=== PATIENT | male | born 1975 | race Caucasian/White ===

== ENCOUNTER 2017-05-25 10:43 | Inpatient (IN) | payer OTHER, SELFPAY ==
[2017-05-25] VITALS (23 sets, daily range): BP systolic 129–165; BP diastolic 78–120; PULSE 98–133; RESP 10–25; TEMP 36.6–37.8; O2SAT 93–99; BMI 34.0; BMI 31.4
--- NOTE | 2017-05-25 10:46 | CT_ITS ---
STUDY: CT BRAIN WITHOUT CONTRAST REASON FOR EXAM: Male, 41 years old. Found on the ground. Right facial droop and weakness. RADIATION DOSAGE (If Supplied By Facility): CTDIvol = ( 44.99 ) mGy, DLP = ( 812.98 ) mGycm TECHNIQUE: Transaxial CT imaging of the brain was performed without administration of intravenous contrast material. Individualized dose optimization techniques were used for this CT. COMPARISON: None. FINDINGS: Normal soft tissue structures. Normal calvarium. Normal size ventricles and extra-axial spaces for the patient's age. Normal white matter tracts of the cerebral hemispheres. Normal basal ganglia and thalami. Normal brainstem. Normal cerebellum. There is no intracranial hemorrhage. There are no findings of an acute ischemic infarction. Acute left maxillary sinusitis. CT/Brain/Head without Contrast IMPRESSION: No acute intracranial pathology. Left maxillary sinusitis. Electronically Signed: Les Holland DO at 11:33 EDT Tel , Service support ,
--- NOTE | 2017-05-25 10:46 | EKG12_ITS ---
Test Reason : Blood Pressure : / mmHG Vent. Rate : 115 BPM Atrial Rate : 115 BPM P-R Int : 140 ms QRS Dur : 082 ms QT Int : 312 ms P-R-T Axes : 056 074 026 degrees QTc Int : 431 ms Sinus tachycardia Otherwise normal ECG Confirmed by BRANDY COLMENARES, SANDRA ([id number]), senior editor ALBA GOODMAN ([id number]) on 05/27/2017 11:32:07 AM Referred By: CAROLINE/DENG Confirmed By:SANDRA NAVA MD
--- NOTE | 2017-05-25 10:46 | CT_ITS ---
STUDY: CT ABDOMEN AND PELVIS WITHOUT CONTRAST REASON FOR EXAM: Male, 41 years old. Found in detail. Right facial droop and weakness. Abdominal pain with contusion RADIATION DOSAGE (If Supplied By Facility): CTDIvol = ( 31.52 ) mGy, DLP = ( 1897.93 ) mGycm TECHNIQUE: Transaxial images were obtained from the dome of the diaphragm to the symphysis pubis without oral contrast, and without intravenous contrast. Sagittal and coronal images were reconstructed. Individualized dose optimization techniques were used for this CT. COMPARISON: None. FINDINGS: Mild bibasilar atelectasis. The visualized portions of the heart are within normal limits. There is hepatomegaly with diffuse hepatic enlargement. Normal gallbladder and extrahepatic biliary system. Normal spleen. Normal pancreas. Normal bilateral adrenal glands. Normal right kidney. Normal left kidney. There is a small hiatal hernia. Normal small intestine. Normal colon. There are surgical clips in the region of the appendix consistent with a prior appendectomy. There is diffuse atherosclerotic calcification of the abdominal aorta, without a demonstrated aneurysm. Normal inferior vena cava. Normal retroperitoneum. Normal urinary bladder. There are prostatic calcifications. Normal abdominal wall. There are diffuse degenerative changes of the visualized lumbar spine. CT/Abdomen/Pelvis without Cont IMPRESSION: No acute findings throughout the abdomen and pelvis. Status post appendectomy. Borderline hepatomegaly. Electronically Signed: Les Holland DO at 11:32 EDT Tel , Service support ,
--- NOTE | 2017-05-25 10:46 | RAD_ITS ---
STUDY: X-RAY CHEST REASON FOR EXAM: Male, 41 years old. Change in mental status. Right-sided weakness. TECHNIQUE: Single AP portable view of the chest. COMPARISON: None. FINDINGS: Lungs are mildly hypoinflated. Lungs are clear. There is no demonstrated pleural abnormality. There is borderline cardiomegaly. Normal mediastinum and misa. Normal visualized pulmonary arteries. Normal visualized aortic arch and descending thoracic aorta. Normal visualized thoracic spine. Normal visualized ribs, clavicles, and shoulders. There is no demonstrated abnormality of the visualized soft tissue structures of the upper abdomen. RAD/Chest 1 View (Portable) IMPRESSION: Hypoinflated lungs. Lungs are clear. Electronically Signed: Les Holland DO at 11:34 EDT Tel , Service support ,
--- NOTE | 2017-05-25 10:50 | NURSING ---
NO OLD EKGS
--- NOTE | 2017-05-25 11:06 | ED.DCSUM_ITS ---
- ER Visit Summary Date of Service: 05/25/17 Chief Complaint: Mental status change History of Present Illness: The patient is a 41 M we have very limited history on him. 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 They heard him yelling in a cleaning person at the hotel found him in the room on the floor. The room was in disarray. Squad was called and brought him in. He had 2 antibiotics Levaquin and Augmentin and also Plavix and blood pressure and cholesterol medication. Patient himself is very limited in gaining history from he denies any medical history. And only gives 1 word answers basically no. Physical Examination: Vital signs are stable afebrile. Pulse ox 98% on room air no signs of hypoxia. He is awake. He is arousable. He follows very limited commands. HEENT exam pupils are 3 mm bilaterally. Not dilated. He has abrasions on his face. Neck nontender no lymphadenopathy. No meningismus. Lungs clear to auscultation bilaterally. Heart regular rhythm no murmur. Chest wall nontender. He has abrasions and redness on his chest right flank abdomen and back. There is also contusions. Abdomen is soft and nontender normal bowel sounds no peritoneal signs. No hernias or masses nondistended. Extremities he is moving the left there is no deformity nontender he is moving both the left arm and leg. The right side he does not move. There are no deformities but there are abrasions and contusions on his extremities. Back he does not have tenderness but he has got redness and contusions primarily over his right flank and right lower back. Neurologically is a decreased mental status but is arousable. He is very limited in his answers and he only follows very limited commands. He does not seem to move his right arm or leg. And is moving his left arm and leg. Test Results: Initial CT of his brain showed no acute abnormalities CT with IV contrast showed diffuse cerebral edema possibly consistent with a encephalitis. No bleed. No mass. Further imaging may be needed. Chest x-ray showed no acute abnormality. EKG sinus tachycardia 115. White count elevated 18.9 with an H&H of 16 and 49 no bands. Electrolytes unremarkable. Gap of 9. Liver enzymes were slightly elevated. INR normal. Lactate normal 1.7. UA is pending. Blood cultures ?2 are pending. Urine tox was positive for opiates and marijuana. Emergency Department Course and Treatment: Multiple repeat exams are unchanged. He remains extremely weak on the right upper and lower extremity. Due to the CAT scan findings. He will be started on both acyclovir for possible herpetic encephalitis. And Claforan. I am unable to do a lumbar puncture at this time due to the fact that he may be on Plavix. I spoke with the pharmacist we do not have Famvir available at this facility. He is also receiving IV Decadron for the cerebral edema. Treatment Plan: Spoke with our hospitalist. Patient be admitted to the ICU. I did try tertiary facilities locally and they do not have ICU beds available they were too full. Disposition: Admission Impression: Mental status change with cerebral edema Acute encephalitis Leukocytosis Reportedly anticoagulated on Plavix Critical care time 35 minutes. This note was generated with Versa dictation software. It may contain incorrect words, spelling, and punctuation that were not noted in review of the chart prior to signing ED Disposition - Plan for ED Patient: Chief Complaint: Alt LOC Referrals: [facility] Doctor,Out of [NON-STAFF] -
[2017-05-25 11:08] LABS: Absolute Lymphocyte Count 1.61 X10^3/ul (0.83-4.51); Absolute Neutrophil Count 15.2 X10^3/uL (2.0-7.7); Basophil# 0.03 X10^3/uL; Basophil% 0.2 % (0-1); Eosinophil# 0.07 X10^3/uL; Eosinophils% 0.4 % (0-5); Hematocrit 49.9 % (40-54); Hemoglobin 16.8 g/dl (13.0-16.5); Lymphocyte # 1.61 X10^3/ul (4.0); Lymphocyte % 8.5 % (19-41); Mean Corp Hgb Conc 33.7 g/gl (32-36); Mean Corpuscular Hgb 31.5 pg (27.0-32.0); Mean Corpuscular Volume 93.6 fL (80-94); Mean Platelet Vol. 9.2 fl (6.2-12.0); Monocyte# 1.83 X10^3/uL; Monocyte% 9.7 % (0-10); Neutrophil # 15.18 X10^3/uL (2.7-7.7); Neutrophil % 80.4 % (47-70); Platelet Count 205 K/mm3 (150-450); RBC Distribution Width SD 47.6 fl (35.1-43.9); Red Blood Count 5.33 M/mm3 (4.6-6.2); White Blood Count 18.9 K/mm3 (4.4-11.0)
[2017-05-25 11:09] LABS: International Normalized Ratio 0.9; Prothrombin Time (Protime)PT. 12.6 SECONDS (11.7-14.9)
[2017-05-25 11:10] LABS: Differential Indicated SCAN CRITERIA MET; POSITIVE COUNT NO; POSITIVE DIFFERENTIAL YES; POSITIVE MORPHOLOGY NO
[2017-05-25 11:21] LABS: AST(SGOT) 61 U/L (15-37); Alanine Aminotransfer ALT/SGPT 73 U/L (16-61); Albumin, Serum 4.1 g/dL (3.2-5.0); Alkaline Phosphatase 123 U/L (45-117); Anion Gap 9 (5-15); BUN 22 mg/dL (7-18); BUN/Creat Ratio 23.2 RATIO (10-20); Bilirubin, Direct 0.13 mg/dL (0.00-0.30); Calcium,Total 8.7 mg/dL (8.5-10.1); Chloride 106 mmol/L (98-107); Creatinine, Serum 0.95 mg/dL (0.70-1.30); EST Glomerular Filtration Rate 92 mL/min (>60); Est Glom Filt Rate - Afr Amer 111 mL/min (>60); Estimated Creatinine Clearance 110.05 ml/min; Globulin 3.2 g/dL (2.2-4.2); Glucose 76 mg/dL (74-106); Potassium 3.8 mmol/L (3.5-5.1); Protein, Total 7.3 g/dL (6.4-8.2); Sodium Level 143 mmol/L (136-145)
[2017-05-25 11:28] LABS: Reactive Lymphocyte RARE
[2017-05-25 11:32] LABS: Lactic Acid 1.7 mmol/L (0.4-2.0)
--- NOTE | 2017-05-25 11:37 | CT_ITS ---
STUDY: CT BRAIN WITH CONTRAST REASON FOR EXAM: Male, 41 years old. Possible meningitis. RADIATION DOSAGE (If Supplied By Facility): CTDIvol = ( 44.99 ) mGy, DLP = ( 846.73 ) mGycm TECHNIQUE: Transaxial CT imaging of the brain was performed post contrast administration. The examination was performed with intravenous administration of 100ml ml of Isovue 300 contrast material. Individualized dose optimization techniques were used for this CT. COMPARISON: None. FINDINGS: Normal soft tissue structures. Normal calvarium. Abnormal edema of the left temporal lobe, the left insular lobe and the left frontal operculum. This accounts for the loss of the vance and white matter interface. There is marked narrowing of the irregular left middle cerebral artery M1 segment. There is also suspicious mild hypodense edema of the right frontal operculum and a small portion of the right temporal tuberculum and the right insular cortex. These are worrisome for nonenhancing herpes simplex encephalitis. Normal ventricles. Normal cisterns. Left retrolenticular edema causing a smaller size appearance of the left lentiform nucleus when compared to the right. Normal remaining basal ganglia. Normal thalami. Normal brainstem. Normal cerebellum. There is no intracranial hemorrhage. Normal visualized paranasal sinuses. CT/Brain/Head WITH Contrast IMPRESSION: Abnormal CT head scan showing nonenhancing abnormal edema in both temporal lobes, left greater than right, the insular lobes, left greater than right, the left frontal operculum, left greater than right, left subinsular white matter and left retrolenticular white matter. 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 RECOMMENDATION: MRI of the brain with and without contrast and MRA of the head. Electronically Signed: Raza Enciso MD at 13:34 EDT , Service support ,
--- NOTE | 2017-05-25 11:39 | ED.RN ---
PATIENT TO ED WITH ALOC. BYSTANDERS FROM HOTEL CALLED IN WITH CONCERNS OF PATIENT YELLING. UPON ARRIVAL, PATIENT CONFUSED AND ANSWERING VERY FEW QUESTIONS. GROANS AND SAYS 1-2 WORDS PHRASES. + FACIAL DROOP TO RIGHT SIDE NOTED. PROFOUND RIGHT SIDE WEAKNESS PRESENT.
[2017-05-25] MEDS: 0.9% Normal Saline 1,000 ML 999 ML IV (11:43)
[2017-05-25 12:09] LABS: Amphetamine Urine VISTA NEGATIVE (<1000 ng/mL); Barbiturate Urine VISTA NEGATIVE (< 200 ng/mL); Benzodiazepine Urine VISTA NEGATIVE (< 200 ng/mL); Cocaine Urine VISTA NEGATIVE (< 300 ng/mL); Ecstacy Urine VISTA NEGATIVE (< 500 ng/mL); Methadone Urine VISTA NEGATIVE (< 300 ng/mL); PCP Urine VISTA NEGATIVE (< 25 ng/mL); THC Urine VISTA POSITIVE (< 50 ng/mL); Vista UDS pH Range 6
[2017-05-25 13:40] LABS: Bedside Glucose 84 mg/dL (70-110)
--- NOTE | 2017-05-25 14:03 | NURSING ---
CALLED [facility].
--- NOTE | 2017-05-25 14:24 | NURSING ---
DR HUMPHREY RETURNED CALL.
--- NOTE | 2017-05-25 14:24 | NURSING ---
, PIETRO MODE [phone]
[2017-05-25 14:26] LABS: Mucous, Urine 0 SEEN /hpf (<or=2+); Squamous Epithelial Cells - UA 0 SEEN /hpf (0-5); White Blood Cells 0 SEEN /hpf (0-5)
[2017-05-25 14:33] LABS: Color, Urine Yellow (Yellow); Glucose, Dipstick Normal (Normal); Ketone-Dipstick Negative (Negative); Leukocyte Esterase-Dipstick Negative /ul (Negative); Nitrite-Dipstick Negative (Negative); Occult Blood-Urine 10 /ul (Negative); Protein-Dipstick 15 mg/dl (Negative); Urine Bilirubin Dipstick Negative (Negative); Urine Clarity Cloudy (Clear); Urine Urobilinogen Normal (Normal)
[2017-05-25 14:39] LABS: Bacteria 2+ /hpf (None Seen); Red Blood Cells-Urine 0-5 SEEN /hpf (0-5)
[2017-05-25 14:40] LABS: Amorphous Sediment 1+
--- NOTE | 2017-05-25 15:06 | PCM.HP.STD ---
Problem List (1) CVA (cerebral vascular accident) Status: Acute Qualifiers: Precerebral and cerebral artery: middle cerebral artery Laterality of affected vessel: left (2) CAD (coronary artery disease) Status: Chronic Qualifiers: Coronary Disease-Associated Artery/Lesion type: [place] artery [place] vs. transplanted heart: [place] heart Associated angina: without angina Qualified Code(s): I25.10 - Atherosclerotic heart disease of [place] coronary artery without angina pectoris History of Present Illness Date of Admission: 05/25/17 Chief Complaint: Confusion The patient is a 41 year old M who was found in his hotel room after screaming out. Patient was found to be disheveled and confused. Patient had numerous scrapes on his body as well. Patient was brought to the hospital for evaluation. In the emergency room patient was confused and unable to write any history. Patient was noted to have right-sided hemiparesis. Patient had a CAT scan that was concerning for herpetic encephalitis. I discussed with Dr. Milian, who reviewed the films and is concern for an acute left MCA stroke and requested a CT angiogram be performed. Discussed with the patient's and stated the patient had a stroke when he was 28 and had a heart attack when he was 38 and has a stent. She denies any history of drug abuse for the patient's. [] Past Medical History Past Medical History (Chronic Problems): Chronic Problems CAD (coronary artery disease) (Chronic) Allergies Unable to Assess Allergy (Verified 05/25/17 11:21) Home Medications: Ambulatory Orders Medication Instructions Recorded Albuterol Sulfate [Ventolin Hfa] 2 puff IH Q4H PRN PRN 05/25/17 Amox/Clavulanate Tablet [Augmentin 1 tablet PO Q8H 05/25/17 Tablet] Clopidogrel Bisulfate [Plavix] 75 mg PO DAILY 05/25/17 Guaifenesin/Codeine Phosphate 10 ml PO Q4H PRN PRN 05/25/17 [Virtussin AC Liquid] Guaifenesin/Dextromethorphan 1 each PO Q12H 05/25/17 [Mucinex Dm ER 600-30 mg Tablet] Metoprolol(XL)Succ [Toprol Xl 25 mg PO DAILY 05/25/17 (Beta Luis Fernando)] Prednisone [Prednisone] See Taper PO DAILY 05/25/17 Simvastatin [Zocor] 20 mg PO QHS 05/25/17 Lives: Spouse/ Significant Other, - - Currently living in the [facility] and 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 Smoking Status: Current every day smoker Tobacco Use: Cigarettes - *Family History Maternal History Items: - - unable to obtain as patient is confused Review of Systems Unable to obtain accurate/complete ROS d/t: Unable to obtain as patient is confused VTE Information - Inpt Only VTE Present on Admission: No VTE Pharm Prophylaxis ordered?: Yes Patient Problems: Active and Suspected Problems CVA (cerebral vascular accident) (Acute) - Physical Exam General: Confused, - - Continue to self only. Disheveled. HEENT: Atraumatic, PERRLA, EOMI, Normocephalic, - - Right facial droop Oral: Moist Mucosa, No Gingival or Mucosal Lesions/ Ulcerations Neck: No Nodes, Thyroid Normal Size and Texture Lungs: Clear to auscultation, Normal air movement, No rhonchi, No wheeze Cardiovascular: Regular rate, Regular Rhythm, Normal S1, Normal S2, No murmurs Abdomen: Bowel Sounds Present, Soft, Non Tender, Non-Distended, No Hepato-splenomegaly Extremities: No edema, No Calf Tenderness Skin: - - Abrasions on both knees with stage I-II pressure ulcers. Regions and erythema over the right side. Musculoskeletal: No Tenderness to Palpation of Joints or Extremities, No Muscle Wasting Lymphatic: No Cervical, Supraclavicular, or Inguinal Adenopathy Neurological: Facial Droop - Right, - - Muscle strength 5 out of 5 on the left upper and left lower extremity and 0 out of 5 of the right upper and lower extremities. Psych/Mental Status: Normal Affect, Appropriate Vital Signs Temp Pulse Resp BP Pulse Ox 36.7 C 109 H 20 H 140/89 H 96 05/25/17 10:52 05/25/17 14:30 05/25/17 14:30 05/25/17 14:30 05/25/17 14:30 Oxygen Flow Rate (L/min) 2 Oxygen Delivery Method Nasal Cannula Weight: 113.6 kg Body Mass Index (BMI) 34.0 Finger Stick Blood Glucose 83 Laboratory Tests Past 24 Hrs 05/25/17 05/25/17 05/25/17 10:49 10:49 10:49 WBC 18.9 H RBC 5.33 Hgb 16.8 H Hct 49.9 MCV 93.6 MCH 31.5 MCHC 33.7 RDW 14.0 RDW Differential 47.6 H Plt Count 205 MPV 9.2 Immature Gran % (Auto) 0.800 Neut % (Auto) 80.4 H Lymph % (Auto) 8.5 L [place] % (Auto) 9.7 Eos % (Auto) 0.4 Baso % (Auto) 0.2 Absolute Neuts (auto) 15.2 H Absolute Lymphs (auto) 1.61 Total Counted Not Reportable Reactive Lymphocytes RARE PT 12.6 INR 0.9 Sodium 143 Potassium 3.8 Chloride 106 Carbon Dioxide 28.0 Anion Gap 9 BUN 22 H Creatinine 0.95 Estim Creat Clear Calc 110.05 Est GFR (MDRD) Af Amer 111 Est GFR (MDRD) Non-Af 92 BUN/Creatinine Ratio 23.2 H Glucose 76 Lactic Acid Calcium 8.7 Total Bilirubin 0.60 Direct Bilirubin 0.13 AST 61 H ALT 73 H Alkaline Phosphatase 123 H Total Protein 7.3 Albumin 4.1 Globulin 3.2 Urine Color Urine Clarity Urine pH Ur Specific [place] Urine Protein Urine Glucose (UA) Urine Ketones Urine Occult Blood Urine Nitrite Urine Bilirubin Urine Urobilinogen Ur Leukocyte Esterase Urine RBC Urine WBC Ur Squamous Epith Cells Amorphous Sediment Urine Bacteria Urine Mucus Urine Opiates Screen Urine Methadone Screen Ur Barbiturates Screen Ur Phencyclidine Scrn Ur Amphetamines Screen U Methamphetamin-MDMA U Benzodiazepines Scrn Urine Cocaine Screen U Cannabinoids Screen Ur Drug Screen Comment Ethyl Alcohol 05/25/17 05/25/17 05/25/17 10:49 10:55 11:45 WBC RBC Hgb Hct MCV MCH MCHC RDW RDW Differential Plt Count MPV Immature Gran % (Auto) Neut % (Auto) Lymph % (Auto) [place] % (Auto) Eos % (Auto) Baso % (Auto) Absolute Neuts (auto) Absolute Lymphs (auto) Total Counted Reactive Lymphocytes PT INR Sodium Potassium Chloride Carbon Dioxide Anion Gap BUN Creatinine Estim Creat Clear Calc Est GFR (MDRD) Af Amer Est GFR (MDRD) Non-Af BUN/Creatinine Ratio Glucose Lactic Acid 1.7 Calcium Total Bilirubin Direct Bilirubin AST ALT Alkaline Phosphatase Total Protein Albumin Globulin Urine Color Yellow Urine Clarity Cloudy Urine pH 6.0 Ur Specific [place] 1.020 Urine Protein 15 H Urine Glucose (UA) Normal Urine Ketones Negative Urine Occult Blood 10 H Urine Nitrite Negative Urine Bilirubin Negative Urine Urobilinogen Normal Ur Leukocyte Esterase Negative Urine RBC 0-5 SEEN Urine WBC 0 SEEN Ur Squamous Epith Cells 0 SEEN Amorphous Sediment 1+ Urine Bacteria 2+ Urine Mucus 0 SEEN Urine Opiates Screen Urine Methadone Screen Ur Barbiturates Screen Ur Phencyclidine Scrn Ur Amphetamines Screen U Methamphetamin-MDMA U Benzodiazepines Scrn Urine Cocaine Screen U Cannabinoids Screen Ur Drug Screen Comment Ethyl Alcohol 14.0 05/25/17 11:45 WBC RBC Hgb Hct MCV MCH MCHC RDW RDW Differential Plt Count MPV Immature Gran % (Auto) Neut % (Auto) Lymph % (Auto) [place] % (Auto) Eos % (Auto) Baso % (Auto) Absolute Neuts (auto) Absolute Lymphs (auto) Total Counted Reactive Lymphocytes PT INR Sodium Potassium Chloride Carbon Dioxide Anion Gap BUN Creatinine Estim Creat Clear Calc Est GFR (MDRD) Af Amer Est GFR (MDRD) Non-Af BUN/Creatinine Ratio Glucose Lactic Acid Calcium Total Bilirubin Direct Bilirubin AST ALT Alkaline Phosphatase Total Protein Albumin Globulin Urine Color Urine Clarity Urine pH Ur Specific [place] Urine Protein Urine Glucose (UA) Urine Ketones Urine Occult Blood Urine Nitrite Urine Bilirubin Urine Urobilinogen Ur Leukocyte Esterase Urine RBC Urine WBC Ur Squamous Epith Cells Amorphous Sediment Urine Bacteria Urine Mucus Urine Opiates Screen POSITIVE H Urine Methadone Screen NEGATIVE Ur Barbiturates Screen NEGATIVE Ur Phencyclidine Scrn NEGATIVE Ur Amphetamines Screen NEGATIVE U Methamphetamin-MDMA NEGATIVE U Benzodiazepines Scrn NEGATIVE Urine Cocaine Screen NEGATIVE U Cannabinoids Screen POSITIVE H Ur Drug Screen Comment Ethyl Alcohol POC Glucose 05/25/17 11:25 POC Glucose 84 EKG was normal sinus rhythm without any acute changes. Clinical Impression(s) from Imaging Studies Abdomen/Pelvis CT 05/25/17 10:46 IMPRESSION: No acute findings throughout the abdomen and pelvis. Status post appendectomy. Borderline hepatomegaly. Electronically Signed: Les Holland DO at 11:32 EDT Tel , Service support , Brain CT 05/25/17 10:46 IMPRESSION: No acute intracranial pathology. Left maxillary sinusitis. Electronically Signed: Les Holland DO at 11:33 EDT Tel , Service support , Chest X-Ray 05/25/17 10:46 IMPRESSION: Hypoinflated lungs. Lungs are clear. Electronically Signed: Les Holland DO at 11:34 EDT Tel , Service support , Brain CT 05/25/17 11:37 IMPRESSION: Abnormal CT head scan showing nonenhancing abnormal edema in both temporal lobes, left greater than right, the insular lobes, left greater than right, the left frontal operculum, left greater than right, left subinsular white matter and left retrolenticular white matter. 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 RECOMMENDATION: MRI of the brain with and without contrast and MRA of the head. Electronically Signed: Raza Enciso MD at 13:34 EDT , Service support , Assessment/Plan Active and Suspected Problems CVA (cerebral vascular accident) (Acute) 1. Acute left MCA stroke This is per Dr. Milian's interpretation. Given patient's history certainly is concerning as well. With the patient's sided hemiparesis She was already on Plavix We will add aspirin Unknown time of onset as patient was noted to be confused today therefore unfortunate on the window for TPA. Concern is for the amount of swelling the patient has seen and I did initially request patient be transferred to tertiary facility for neurosurgery backup at the [facility] have any ICU beds at this time. Will assess the patient and if any change in his status and patient would require being transferred to tertiary facility. The my initial recommendation was for a tertiary facility before neurology had stated that this was a stroke as it is concern for possible encephalitis. The patient will undergo a stroke workup with an MRI of the brain, echocardiogram. Patient will have a physical, occupational and speech therapies. Neurology will be following as well. he will be n.p.o. until he passes a bedside swallow evaluation. 2. Coronary artery disease No ischemic changes on EKG Continue with Plavix and metoprolol. 3. DVT prophylaxis with Lovenox Prognosis guarded Discussed with the patient's over the phone. She will be coming from [place] to see him. Code Visit Inpatient E&M: [id number] Init Hosp L3
--- NOTE | 2017-05-25 15:09 | NURSING ---
ICU 1 CVA ELEN
--- NOTE | 2017-05-25 15:15 | HP.PCM_ITS ---
Problem List (1) CVA (cerebral vascular accident) Status: Acute Qualifiers: Precerebral and cerebral artery: middle cerebral artery Laterality of affected vessel: left (2) CAD (coronary artery disease) Status: Chronic Qualifiers: Coronary Disease-Associated Artery/Lesion type: [place] artery [place] vs. transplanted heart: [place] heart Associated angina: without angina Qualified Code(s): I25.10 - Atherosclerotic heart disease of [place] coronary artery without angina pectoris History of Present Illness Date of Admission: 05/25/17 Chief Complaint: Confusion The patient is a 41 year old M who was found in his hotel room after screaming out. Patient was found to be disheveled and confused. Patient had numerous scrapes on his body as well. Patient was brought to the hospital for evaluation. In the emergency room patient was confused and unable to write any history. Patient was noted to have right-sided hemiparesis. Patient had a CAT scan that was concerning for herpetic encephalitis. I discussed with Dr. Milian, who reviewed the films and is concern for an acute left MCA stroke and requested a CT angiogram be performed. Discussed with the patient's and stated the patient had a stroke when he was 28 and had a heart attack when he was 38 and has a stent. She denies any history of drug abuse for the patient 's. [] Past Medical History Past Medical History (Chronic Problems): Chronic Problems CAD (coronary artery disease) (Chronic) Allergies Unable to Assess Allergy (Verified 05/25/17 11:21) Home Medications: Ambulatory Orders Medication Instructions Recorded Albuterol Sulfate [Ventolin Hfa] 2 puff IH Q4H PRN PRN 05/25/17 Amox/Clavulanate Tablet [Augmentin 1 tablet PO Q8H 05/25/17 Tablet] Clopidogrel Bisulfate [Plavix] 75 mg PO DAILY 05/25/17 Guaifenesin/Codeine Phosphate 10 ml PO Q4H PRN PRN 05/25/17 [Virtussin AC Liquid] Guaifenesin/Dextromethorphan 1 each PO Q12H 05/25/17 [Mucinex Dm ER 600-30 mg Tablet] Metoprolol(XL)Succ [Toprol Xl 25 mg PO DAILY 05/25/17 (Beta Luis Fernando)] Prednisone [Prednisone] See Taper PO DAILY 05/25/17 Simvastatin [Zocor] 20 mg PO QHS 05/25/17 Lives: Spouse/ Significant Other, - - Currently living in the [facility] and is from [place] but 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 Smoking Status: Current every day smoker Tobacco Use: Cigarettes - *Family History Maternal History Items: - - unable to obtain as patient is confused Review of Systems Unable to obtain accurate/complete ROS d/t: Unable to obtain as patient is confused VTE Information - Inpt Only VTE Present on Admission: No VTE Pharm Prophylaxis ordered?: Yes Patient Problems: Active and Suspected Problems CVA (cerebral vascular accident) (Acute) - Physical Exam General: Confused, - - Continue to self only. Disheveled. HEENT: Atraumatic, PERRLA, EOMI, Normocephalic, - - Right facial droop Oral: Moist Mucosa, No Gingival or Mucosal Lesions/ Ulcerations Neck: No Nodes, Thyroid Normal Size and Texture Lungs: Clear to auscultation, Normal air movement, No rhonchi, No wheeze Cardiovascular: Regular rate, Regular Rhythm, Normal S1, Normal S2, No murmurs Abdomen: Bowel Sounds Present, Soft, Non Tender, Non-Distended, No Hepato- splenomegaly Extremities: No edema, No Calf Tenderness Skin: - - Abrasions on both knees with stage I-II pressure ulcers. Regions and erythema over the right side. Musculoskeletal: No Tenderness to Palpation of Joints or Extremities, No Muscle Wasting Lymphatic: No Cervical, Supraclavicular, or Inguinal Adenopathy Neurological: Facial Droop - Right, - - Muscle strength 5 out of 5 on the left upper and left lower extremity and 0 out of 5 of the right upper and lower extremities. Psych/Mental Status: Normal Affect, Appropriate Vital Signs Temp Pulse Resp BP Pulse Ox 36.7 C 109 H 20 H 140/89 H 96 05/25/17 10:52 05/25/17 14:30 05/25/17 14:30 05/25/17 14:30 05/25/17 14:30 Oxygen Flow Rate (L/min) 2 Oxygen Delivery Method Nasal Cannula Weight: 113.6 kg Body Mass Index (BMI) 34.0 Finger Stick Blood Glucose 83 Laboratory Tests Past 24 Hrs 05/25/17 05/25/17 05/25/17 10:49 10:49 10:49 WBC 18.9 H RBC 5.33 Hgb 16.8 H Hct 49.9 MCV 93.6 MCH 31.5 MCHC 33.7 RDW 14.0 RDW Differential 47.6 H Plt Count 205 MPV 9.2 Immature Gran % (Auto) 0.800 Neut % (Auto) 80.4 H Lymph % (Auto) 8.5 L [place] % (Auto) 9.7 Eos % (Auto) 0.4 Baso % (Auto) 0.2 Absolute Neuts (auto) 15.2 H Absolute Lymphs (auto) 1.61 Total Counted Not Reportable Reactive Lymphocytes RARE PT 12.6 INR 0.9 Sodium 143 Potassium 3.8 Chloride 106 Carbon Dioxide 28.0 Anion Gap 9 BUN 22 H Creatinine 0.95 Estim Creat Clear Calc 110.05 Est GFR (MDRD) Af Amer 111 Est GFR (MDRD) Non-Af 92 BUN/Creatinine Ratio 23.2 H Glucose 76 Lactic Acid Calcium 8.7 Total Bilirubin 0.60 Direct Bilirubin 0.13 AST 61 H ALT 73 H Alkaline Phosphatase 123 H Total Protein 7.3 Albumin 4.1 Globulin 3.2 Urine Color Urine Clarity Urine pH Ur Specific [place] Urine Protein Urine Glucose (UA) Urine Ketones Urine Occult Blood Urine Nitrite Urine Bilirubin Urine Urobilinogen Ur Leukocyte Esterase Urine RBC Urine WBC Ur Squamous Epith Cells Amorphous Sediment Urine Bacteria Urine Mucus Urine Opiates Screen Urine Methadone Screen Ur Barbiturates Screen Ur Phencyclidine Scrn Ur Amphetamines Screen U Methamphetamin-MDMA U Benzodiazepines Scrn Urine Cocaine Screen U Cannabinoids Screen Ur Drug Screen Comment Ethyl Alcohol 05/25/17 05/25/17 05/25/17 10:49 10:55 11:45 WBC RBC Hgb Hct MCV MCH MCHC RDW RDW Differential Plt Count MPV Immature Gran % (Auto) Neut % (Auto) Lymph % (Auto) [place] % (Auto) Eos % (Auto) Baso % (Auto) Absolute Neuts (auto) Absolute Lymphs (auto) Total Counted Reactive Lymphocytes PT INR Sodium Potassium Chloride Carbon Dioxide Anion Gap BUN Creatinine Estim Creat Clear Calc Est GFR (MDRD) Af Amer Est GFR (MDRD) Non-Af BUN/Creatinine Ratio Glucose Lactic Acid 1.7 Calcium Total Bilirubin Direct Bilirubin AST ALT Alkaline Phosphatase Total Protein Albumin Globulin Urine Color Yellow Urine Clarity Cloudy Urine pH 6.0 Ur Specific [place] 1.020 Urine Protein 15 H Urine Glucose (UA) Normal Urine Ketones Negative Urine Occult Blood 10 H Urine Nitrite Negative Urine Bilirubin Negative Urine Urobilinogen Normal Ur Leukocyte Esterase Negative Urine RBC 0-5 SEEN Urine WBC 0 SEEN Ur Squamous Epith Cells 0 SEEN Amorphous Sediment 1+ Urine Bacteria 2+ Urine Mucus 0 SEEN Urine Opiates Screen Urine Methadone Screen Ur Barbiturates Screen Ur Phencyclidine Scrn Ur Amphetamines Screen U Methamphetamin-MDMA U Benzodiazepines Scrn Urine Cocaine Screen U Cannabinoids Screen Ur Drug Screen Comment Ethyl Alcohol 14.0 05/25/17 11:45 WBC RBC Hgb Hct MCV MCH MCHC RDW RDW Differential Plt Count MPV Immature Gran % (Auto) Neut % (Auto) Lymph % (Auto) [place] % (Auto) Eos % (Auto) Baso % (Auto) Absolute Neuts (auto) Absolute Lymphs (auto) Total Counted Reactive Lymphocytes PT INR Sodium Potassium Chloride Carbon Dioxide Anion Gap BUN Creatinine Estim Creat Clear Calc Est GFR (MDRD) Af Amer Est GFR (MDRD) Non-Af BUN/Creatinine Ratio Glucose Lactic Acid Calcium Total Bilirubin Direct Bilirubin AST ALT Alkaline Phosphatase Total Protein Albumin Globulin Urine Color Urine Clarity Urine pH Ur Specific [place] Urine Protein Urine Glucose (UA) Urine Ketones Urine Occult Blood Urine Nitrite Urine Bilirubin Urine Urobilinogen Ur Leukocyte Esterase Urine RBC Urine WBC Ur Squamous Epith Cells Amorphous Sediment Urine Bacteria Urine Mucus Urine Opiates Screen POSITIVE H Urine Methadone Screen NEGATIVE Ur Barbiturates Screen NEGATIVE Ur Phencyclidine Scrn NEGATIVE Ur Amphetamines Screen NEGATIVE U Methamphetamin-MDMA NEGATIVE U Benzodiazepines Scrn NEGATIVE Urine Cocaine Screen NEGATIVE U Cannabinoids Screen POSITIVE H Ur Drug Screen Comment Ethyl Alcohol POC Glucose 05/25/17 11:25 POC Glucose 84 EKG was normal sinus rhythm without any acute changes. Clinical Impression(s) from Imaging Studies Abdomen/Pelvis CT 05/25/17 10:46 IMPRESSION: No acute findings throughout the abdomen and pelvis. Status post appendectomy. Borderline hepatomegaly. Electronically Signed: Les Holland DO at 11:32 EDT Tel , Service support , Brain CT 05/25/17 10:46 IMPRESSION: No acute intracranial pathology. Left maxillary sinusitis. Electronically Signed: Les Holland DO at 11:33 EDT Tel , Service support , Chest X-Ray 05/25/17 10:46 IMPRESSION: Hypoinflated lungs. Lungs are clear. Electronically Signed: Les Holland DO at 11:34 EDT Tel , Service support , Brain CT 05/25/17 11:37 IMPRESSION: Abnormal CT head scan showing nonenhancing abnormal edema in both temporal lobes, left greater than right, the insular lobes, left greater than right, the left frontal operculum, left greater than right, left subinsular white matter and left retrolenticular white matter. 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 RECOMMENDATION: MRI of the brain with and without contrast and MRA of the head. Electronically Signed: Raza Enciso MD at 13:34 EDT , Service support , Assessment/Plan Active and Suspected Problems CVA (cerebral vascular accident) (Acute) 1. Acute left MCA stroke * This is per Dr. Milian's interpretation. Given patient's history certainly is concerning as well. With the patient's sided hemiparesis * She was already on Plavix * We will add aspirin * Unknown time of onset as patient was noted to be confused today therefore unfortunate on the window for TPA. * Concern is for the amount of swelling the patient has seen and I did initially request patient be transferred to tertiary facility for neurosurgery backup at the [facility] no hospitals have any ICU beds at this time. Will assess the patient and if any change in his status and patient would require being transferred to tertiary facility. The my initial recommendation was for a tertiary facility before neurology had stated that this was a stroke as it is concern for possible encephalitis. * The patient will undergo a stroke workup with an MRI of the brain, echocardiogram. Patient will have a physical, occupational and speech therapies. Neurology will be following as well. * he will be n.p.o. until he passes a bedside swallow evaluation. 2. Coronary artery disease * No ischemic changes on EKG * Continue with Plavix and metoprolol. 3. DVT prophylaxis with Lovenox Prognosis guarded Discussed with the patient's over the phone. She will be coming from [place] to see him. Code Visit Inpatient E&M: 24416 Init Hosp L3
--- NOTE | 2017-05-25 15:34 | MRI_ITS ---
STUDY: MRI BRAIN WITH AND WITHOUT CONTRAST REASON FOR EXAM: Male, 41 years old. CVA TECHNIQUE: Standardized multiplanar fat and water weighted pulse sequences were obtained. 10 ml of Gadavist contrast material was administered intravenously for the contrast portion of the examination. COMPARISON: None. FINDINGS: Normal size of the ventricles and extra-axial spaces for the patient's age. There is diffuse gliosis in the left temporal, frontal and anterior parietal lobes demonstrating restricted diffusion consistent with acute ischemic changes in distribution of left middle cerebral artery. There is also restricted diffusion seen within the left basal ganglia. There is mild extrinsic impression upon left lateral ventricle without midline shift . Normal thalami. There is no extra-axial fluid accumulation. There is no appreciable flow seen within the left internal carotid at the level of the petrous, cavernous and supraclinoid portions.. There also appears to be diminished flow within the left middle cerebral artery . There is enhancing collateral circulation noted within the left cerebral hemisphere following contrast administration Normal sella turcica, pituitary gland, infundibular stalk, optic chiasm and hypothalamus. Normal tectal plate and pineal gland. Normal midbrain, nemesio and medulla. Chronic ischemic changes in the right cerebellar hemisphere. Normal basal cisterns. Normal bilateral temporal bones. Normal bilateral internal auditory canals. No demonstrated orbital abnormality, within the constraints of a routine brain study. There is moderate mucosal thickening in the left maxillary sinus. Normal calvarium and skull base. Normal visualized soft tissue structures. Normal visualized upper cervical spine. MRI/Brain W/WO Contrast IMPRESSION: Acute ischemic infarction of the left frontal temporal and parietal lobes secondary to left internal carotid occlusion. MRA recommended for further evaluation. Electronically Signed: Juan Jose Guy MD at 22:20 EDT , Service support ,
--- NOTE | 2017-05-25 15:34 | ECHOD_ITS ---
Reason For Study: TIA/STROKE Procedure This was a 2D Doppler, Color Flow transthoracic echocardiogram. Exam performed portable in ICU/CCU. Left Ventricle Normal size and thickness. The estimated ejection fraction is 65 %. Stage 1 diastolic dysfunction. No regional wall motion abnormalities noted. Right Ventricle Normal size and thickness. Normal systolic function. Atria Normal left atrium. Normal right atrium. Normal atrial septum. Bubble contrast study negative for right to left interatrial shunt. Mitral Valve The mitral valve is structurally normal. No prolapse or stenosis seen. Tricuspid Valve Normal tricuspid valve. Unable to estimate RV systolic pressure/pulmonary artery pressure due to technically difficult study. Aortic Valve Normal aortic valve. Trisinus/trileaflet aortic valve. Pulmonic Valve Normal pulmonic valve. Trivial pulmonic valve insufficiency. Great Vessels Normal aortic root. Normal arch. Normal inferior vena cava. Inferior vena cava collapse with sniff. Pericardium/Pleural No pericardial effusion. Medication Performed a rapid injection of agitated mix of 9 cc saline and 1cc air to assess for atrial septal defect. MMode/2D Measurements & Calculations LVIDd: 4.4 cm IVSd: 1.3 cm LA dimension: 3.7 cm LVIDs: 3.3 cm LVPWd: 1.2 cm RVDd: 3.3 cm FS: 25.4 % LAV(MOD-bp): 47.1 ml LA A4 area: 12.1 cm2 RA A4 area: 11.4 cm2 LAV(MOD-bp) Indexed: 20.1 ml/m2 LAV(MOD-sp2): 65.1 ml LAV(MOD-sp4): 29.0 ml Doppler Measurements & Calculations MV E max ash: 83.5 cm/sec Ao V2 max: 137.0 cm/sec LV V1 max: 113.5 cm/sec MV A max ash: 93.7 cm/sec Ao max P.5 mmHg LV V1 max P.2 mmHg MV E/A: 0.89 Interpretation Summary The estimated ejection fraction is 65 %. Stage 1 diastolic dysfunction. Unable to estimate RV systolic pressure/pulmonary artery pressure due to technically difficult study. Bubble contrast study negative for right to left interatrial shunt. There is no comparison study available. Ordering Physician: Zeferino Barrow Performed By: Luly Barbosa, [place], RVT
[2017-05-25] MEDS: Ceftriaxone 2 GM in 0.9% NS 50 ML Minibag x1 IV (16:24)
[2017-05-25 16:38] LABS: Prothrombin Time (Protime)PT. 12.9 SECONDS (11.7-14.9)
[2017-05-25 16:49] LABS: Thyroid Stim Hormone (TSH) 0.28 uIU/mL (0.358-3.74)
[2017-05-25] MEDS: Aspirin 300 MG Suppository RECTAL (18:20)
[2017-05-25] MEDS: 0.9% NaCl Peripheral Flush Adult/Peds IV (18:25)
--- NOTE | 2017-05-25 19:11 | MRI_ITS ---
STUDY: MRA NECK WITH AND WITHOUT CONTRAST REASON FOR EXAM: Male, 41 years old. CVA TECHNIQUE: 3-D quvm-[id number]-bwzagg (TOF) imaging was performed in an 1.5 T MRI scanner. 10 ml of Gadavist was administered for the contrast enhanced images. COMPARISON: None. FINDINGS: RIGHT CAROTID ARTERIES: Normal right common carotid artery (CCA). Normal right common carotid bulb. Normal origin of the right internal carotid (ICA) artery without a hemodynamically significant stenosis. Normal visualized cervical portion of the right internal carotid artery. Normal origin of the right external carotid artery (ECA). LEFT CAROTID ARTERIES: Normal left common carotid artery (CCA). Normal left common carotid bulb. Normal origin of the left internal carotid (ICA) artery without a hemodynamically significant stenosis. Occluded proximal cervical portion of the left internal carotid artery. Normal origin of the left external carotid artery (ECA). VERTEBRAL ARTERIES: Normal antegrade flow within the bilateral vertebral artery without a hemodynamically significant stenosis. MRI/MRA Neck WITH and W/O Contrast IMPRESSION: Occluded left internal carotid just distal to the bifurcation. Electronically Signed: Juan Jose Guy MD at 22:24 EDT , Service support ,
--- NOTE | 2017-05-25 19:11 | MRI_ITS ---
STUDY: MRA OF THE HEAD WITHOUT CONTRAST REASON FOR EXAM: Male, 41 years old. Stroke TECHNIQUE: 3-D ptdz-co-felecu (TOF) imaging was performed with MIPs. The study was performed unenhanced. COMPARISON: None. FINDINGS: Normal right petrous carotid arteries. Normal right cavernous carotid artery with a normal supraclinoid bifurcation. Nonvisualized left cavernous carotid artery with a normal supraclinoid bifurcation. Normal right A1 segments of the anterior cerebral artery. Normal left A1 segments of the anterior cerebral artery. Normal intact anterior communicating artery (ACOM). Normal bilateral A2 segments of the anterior cerebral arteries. Normal right M1 and M2 segments of the middle cerebral arteries, with a normal M1 bifurcation. Nonvisualized left M1 and M2 segments of the middle cerebral arteries, with a normal M1 bifurcation. Posterior communicating arteries are not visualized consistent with normal developmental variant Normal bilateral vertebral arteries. Normal basilar artery with a normal basilar bifurcation. The visualized bilateral superior cerebellar (SCA) arteries are normal. Normal bilateral P1, P2 and visualized P3 segments of the posterior cerebral arteries. There is no demonstrated aneurysm of the [place]. There is no major vessel occlusion or hemodynamically significant stenosis. There is no demonstrated abnormality of the visualized brain. MRI/MRA Head ONLY without Contrast IMPRESSION: Findings consistent with occlusion of the petrous portion of the left internal carotid extending to the level of the middle cerebral artery. Electronically Signed: Juan Jose Guy MD at 22:23 EDT , Service support ,
[2017-05-25] MEDS: Haloperidol Lactate 5 MG/ML Vial 2.5 MG IV ×2 (19:17→20:10)
--- NOTE | 2017-05-25 19:59 | NURSING ---
Pt currently undergoing MRI. Pt given Haldol 2.5mg IV at 1917 to help with mild agitation.
[2017-05-25 22:01] LABS: Bedside Glucose 123 mg/dL (70-110)
[2017-05-25] MEDS: 0.9% Normal Saline 1,000 ML 125 ML IV (22:04)
--- NOTE | 2017-05-25 22:33 | NURSING ---
Spoke with Dr. Guy from radiology with critical MRI/MRA findings. Dr. Jean hospitalist database consultant paged.
[2017-05-25 22:35] LABS: CPK Total, Creatine Kinase 1657 U/L (39-308)
--- NOTE | 2017-05-25 22:38 | PCM.HOSP.N ---
Hospitalist Note Reviewed all resulted MRI/MRA images with Dr. Milian. He noted no reason to transfer patient at this time. Will continue to monitor, if any concerns for edema than would opt to transfer for neurosurgery evaluation if felt appropriate at that time. Currently NPO so only taking NH ASA, prior at home with history of prior CVA, VT was on asa, plavix both which was discussed w/ Dr. Milian. Given extent of CVA, Dr. Milian also confirmed amenable with chemoprophylaxis with lovenox.
[2017-05-25] MEDS: Enoxaparin 40 MG/0.4 ML Syringe SC (23:16)
[2017-05-26] VITALS (26 sets, daily range): BP systolic 115–154; BP diastolic 61–128; PULSE 69–111; RESP 9–29; TEMP 36.1–37; O2SAT 94–100; BMI 31.4
--- NOTE | 2017-05-26 02:05 | NURSING ---
This RN asked family if they wanted someone from the clergy to visit patient. They called their own spiritual leader. Father Patrick here at the bedside with patient and family.
[2017-05-26 05:00] LABS: Cholesterol 229 mg/dL (200); Free T3 2.8 pg/mL (2.18-3.98); High Density Lipoprotein 48 mg/dL; T4 Free Direct 1.39 ng/dL (0.76-1.46); Triglycerides 322 mg/dL; Very Low Density Lipoprotein 64 mg/dL (5-40)
--- NOTE | 2017-05-26 06:57 | PCM.CON.CC ---
Reason for Consult Date of Consultation: 05/26/17 Reason for Consultation: Altered mental status/stroke History of Present Illness: The patient is a 41-year-old male, with a history as outlined below who presented to the emergency department on May 25 with altered mentation. 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 He was staying at a local hotel and was reportedly heard yelling nonsensically by cleaning personnel. Upon going into his room, the patient was found on the floor in an altered and disheveled state. Per the patient's , he has a history of a prior CVA and coronary artery disease for which he is status post PTCA. On presentation to the emergency department, the patient was found to be afebrile, tachycardic and hypertensive. Laboratory evaluation revealed elevated white blood cell count to 19,000. Coagulation profile is within normal limits. Chemistry profile was largely unremarkable. AST and ALT were mildly elevated. Urinalysis was negative. Toxicology screen was positive for both opiates and cannabinoids. CT head revealed nonenhancing edema in both temporal lobes worrisome for HSV encephalitis versus neoplasm versus ischemic infarcts. A follow-up MRI brain was subsequently obtained and revealed an acute ischemic infarction of the left frontal temporal and parietal lobes secondary to left internal carotid occlusion. Neck MRA confirmed complete occlusion of the left internal carotid. The patient was subsequently transferred to the medical intensive care unit for ongoing management. Past Medical History Past Medical History (Chronic Problems): Chronic Problems CAD (coronary artery disease) (Chronic) Allergies No Known Allergies Allergy (Verified 05/25/17 15:07) Home Medications: Ambulatory Orders Medication Instructions Recorded Albuterol Sulfate [Ventolin Hfa] 2 puff IH Q4H PRN PRN 05/25/17 Amox/Clavulanate Tablet [Augmentin 1 tablet PO Q8H 05/25/17 Tablet] Clopidogrel Bisulfate [Plavix] 75 mg PO DAILY 05/25/17 Guaifenesin/Codeine Phosphate 10 ml PO Q4H PRN PRN 05/25/17 [Virtussin AC Liquid] Guaifenesin/Dextromethorphan 1 each PO Q12H 05/25/17 [Mucinex Dm ER 600-30 mg Tablet] Metoprolol(XL)Succ [Toprol Xl 25 mg PO DAILY 05/25/17 (Beta Luis Fernando)] Prednisone [Prednisone] See Taper PO DAILY 05/25/17 Simvastatin [Zocor] 20 mg PO QHS 05/25/17 Lives: Spouse/ Significant Other, - - Currently living in the [facility] and is from [place] but 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 Smoking Status: Current every day smoker Tobacco Use: Cigarettes - *Family History Maternal History Items: - - unable to obtain as patient is confused Review of Systems Unable to obtain accurate/complete ROS d/t: Due to altered mental state. Patient Problems: Active and Suspected Problems CVA (cerebral vascular accident) (Acute) Objective: The patient's most recent lab work, culture data and imaging studies have all been personally reviewed. Blood cultures are pending. Surface echocardiogram is pending. - Physical Exam General: Alert, Cooperative, Confused HEENT: Atraumatic, PERRLA, Normocephalic Oral: No Gingival or Mucosal Lesions/ Ulcerations Neck: Supple, No Nodes, Trachea Midline Lungs: No rhonchi, No wheeze, No rales, Diminished Cardiovascular: Regular rate, Regular Rhythm, Normal S1, Normal S2, No murmurs Abdomen: Bowel Sounds Present, Soft, Non Tender, Obese Extremities: No clubbing, No cyanosis, No edema Skin: - - Scattered abrasions Musculoskeletal: No Muscle Wasting Lymphatic: No Cervical, Supraclavicular, or Inguinal Adenopathy Neurological: - - Flaccid right upper extremity. Some movement noted in right lower extremity. Right-sided neglect. Vital Signs Temp Pulse Resp BP Pulse Ox 97.5 F L 84 21 H 132/84 H 96 05/26/17 06:00 05/26/17 06:00 05/26/17 06:00 05/26/17 06:00 05/26/17 06:00 Oxygen Flow Rate (L/min) 2 Oxygen Delivery Method Room Air Weight: 231 lb 11.293 oz Body Mass Index (BMI) 31.4 Intake and Output for Last 24 Hours 05/24/17 05/25/17 05/26/17 23:59 23:59 23:59 Intake Total 370 / 370 997 / 997 Output Total 325 / 325 900 / 900 Balance 45 / 45 97 / 97 Laboratory Tests Past 24 Hrs 05/25/17 05/25/17 05/25/17 16:14 16:14 18:30 PT 12.9 INR 1.0 Total Creatine Kinase Troponin I < 0.02 < 0.02 Triglycerides Cholesterol LDL Cholesterol VLDL Cholesterol HDL Cholesterol TSH 0.28 L Free T4 Free T3 pg/dL 05/25/17 05/25/17 05/26/17 21:50 21:50 04:00 PT INR Total Creatine Kinase 1657 H Troponin I < 0.02 < 0.02 Triglycerides Cholesterol LDL Cholesterol VLDL Cholesterol HDL Cholesterol TSH Free T4 Free T3 pg/dL 05/26/17 04:00 PT INR Total Creatine Kinase Troponin I Triglycerides 322 H Cholesterol 229 H LDL Cholesterol 117 VLDL Cholesterol 64 H HDL Cholesterol 48 TSH Free T4 1.39 Free T3 pg/dL 2.8 POC Glucose 05/25/17 21:59 POC Glucose 123 H Clinical Impression(s) from Imaging Studies Abdomen/Pelvis CT 05/25/17 10:46 IMPRESSION: No acute findings throughout the abdomen and pelvis. Status post appendectomy. Borderline hepatomegaly. Electronically Signed: Les Holland DO at 11:32 EDT Tel , Service support , Brain CT 05/25/17 10:46 IMPRESSION: No acute intracranial pathology. Left maxillary sinusitis. Electronically Signed: Les Holland DO at 11:33 EDT Tel , Service support , Chest X-Ray 05/25/17 10:46 IMPRESSION: Hypoinflated lungs. Lungs are clear. Electronically Signed: Les Holland DO at 11:34 EDT Tel , Service support , Brain CT 05/25/17 11:37 IMPRESSION: Abnormal CT head scan showing nonenhancing abnormal edema in both temporal lobes, left greater than right, the insular lobes, left greater than right, the left frontal operculum, left greater than right, left subinsular white matter and left retrolenticular white matter. 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 RECOMMENDATION: MRI of the brain with and without contrast and MRA of the head. Electronically Signed: Raza Enciso MD at 13:34 EDT , Service support , Brain MRI 05/25/17 15:34 IMPRESSION: Acute ischemic infarction of the left frontal temporal and parietal lobes secondary to left internal carotid occlusion. MRA recommended for further evaluation. Electronically Signed: Juan Jose Gyu MD at 22:20 EDT , Service support , Head MRA 05/25/17 19:11 IMPRESSION: Findings consistent with occlusion of the petrous portion of the left internal carotid extending to the level of the middle cerebral artery. Electronically Signed: Juan Jose Guy MD at 22:23 EDT , Service support , Neck MRA 05/25/17 19:11 IMPRESSION: Occluded left internal carotid just distal to the bifurcation. Electronically Signed: Juan Jose Guy MD at 22:24 EDT , Service support , Assessment/Plan Active and Suspected Problems CVA (cerebral vascular accident) (Acute) RECOMMENDATIONS: 1. Continue management per stroke protocol 2. Continue supplemental IV fluids for now 3. Neurology consultation is pending 4. Allow for permissive hypertension 5. Obtain PT/OT/speech evaluations IMPRESSIONS: 1. Acute ischemic infarction Continue stroke management per protocol. Allow for permissive hypertension for now. Aspirin and Plavix can be started. PT/OT/speech evaluations pending. Continue supplemental IV fluids until speech evaluation is completed. Consider inpatient rehabilitation. The patient will need to follow-up with vascular surgery on an outpatient basis to address his occluded left ICA. 2. Personal history of coronary artery disease status post PTCA Continue aspirin and Plavix. The patient will require initiation of a statin. 3. Hypertension/hyperlipidemia/tobacco dependence Complicates care, management, recovery and prognosis. Holding antihypertensives for now. Statin will need to be initiated once the patient is able to tolerate p.o. Tobacco cessation is recommended. This note was generated with [employer] software. It may contain incorrect words, spelling, and punctuation that were not noted in checking the note before signing. Code Visit Inpatient E&M: 54300 Init Hosp L3
[2017-05-26] MEDS: 0.9% Normal Saline 1,000 ML 125 ML IV ×2 (08:32→17:13)
--- NOTE | 2017-05-26 08:47 | PCM.CONS.GEN ---
Reason for Consult Date of Consultation: 05/26/17 Reason for Consultation: CVA History of Present Illness: The patient is a 41 year old M who was found down in his hotel room, was brought to the emergency department and was found to have a large left MCA distribution stroke. He apparently has had a stroke in the past and has been on Plavix and blood pressure medicines but history is unclear. 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 He is unable to give his history otherwise. Further testing has been performed including MRI and MRA which has confirmed his left MCA distribution stroke as well as a left carotid occlusion extending into his MCA territory. per admit h&p:The patient is a 41 year old M who was found in his hotel room after screaming out. Patient was found to be disheveled and confused. Patient had numerous scrapes on his body as well. Patient was brought to the hospital for evaluation. In the emergency room patient was confused and unable to write any history. Patient was noted to have right-sided hemiparesis. Patient had a CAT scan that was concerning for herpetic encephalitis. I discussed with Dr. Milian, who reviewed the films and is concern for an acute left MCA stroke and requested a CT angiogram be performed. Discussed with the patient's and stated the patient had a stroke when he was 28 and had a heart attack when he was 38 and has a stent. She denies any history of drug abuse for the patient's. Past Medical History Past Medical History (Chronic Problems): Chronic Problems CAD (coronary artery disease) (Chronic) Allergies No Known Allergies Allergy (Verified 05/25/17 15:07) Home Medications: Ambulatory Orders Medication Instructions Recorded Albuterol Sulfate [Ventolin Hfa] 2 puff IH Q4H PRN PRN 05/25/17 Amox/Clavulanate Tablet [Augmentin 1 tablet PO Q8H 05/25/17 Tablet] Clopidogrel Bisulfate [Plavix] 75 mg PO DAILY 05/25/17 Guaifenesin/Codeine Phosphate 10 ml PO Q4H PRN PRN 05/25/17 [Virtussin AC Liquid] Guaifenesin/Dextromethorphan 1 each PO Q12H 05/25/17 [Mucinex Dm ER 600-30 mg Tablet] Metoprolol(XL)Succ [Toprol Xl 25 mg PO DAILY 05/25/17 (Beta Luis Fernando)] Prednisone [Prednisone] See Taper PO DAILY 05/25/17 Simvastatin [Zocor] 20 mg PO QHS 05/25/17 Lives: Spouse/ Significant Other, - - Currently living in the [facility] and is from [place] 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 Smoking Status: Current every day smoker Tobacco Use: Cigarettes - *Family History Maternal History Items: - - unable to obtain as patient is confused Review of Systems Unable to obtain accurate/complete ROS d/t: confused Patient Problems: Active and Suspected Problems CVA (cerebral vascular accident) (Acute) Objective: On examination he is awake and follows simple commands lying he knows his age and the month There is a right central 7 Right hemianopsia Right arm is flaccid. He is not able to hold his right leg up off of the bed but there is some effort. Left arm and left leg are normal He has right-sided neglect Some receptive aphasia line NIH stroke scale score is 14 - Physical Exam Vital Signs Temp Pulse Resp BP Pulse Ox 36.8 C 111 H 29 H 119/66 94 05/26/17 07:00 05/26/17 07:14 05/26/17 07:00 05/26/17 07:00 05/26/17 07:00 Oxygen Flow Rate (L/min) 2 Oxygen Delivery Method Room Air Weight: 105.1 kg Body Mass Index (BMI) 31.4 Intake and Output for Last 24 Hours 05/24/17 05/25/17 05/26/17 23:59 23:59 23:59 Intake Total 370 / 370 997 / 997 Output Total 325 / 325 900 / 900 Balance 45 / 45 97 / 97 Laboratory Tests Past 24 Hrs 05/25/17 05/25/17 05/25/17 16:14 16:14 18:30 PT 12.9 INR 1.0 Total Creatine Kinase Troponin I < 0.02 < 0.02 Triglycerides Cholesterol LDL Cholesterol VLDL Cholesterol HDL Cholesterol TSH 0.28 L Free T4 Free T3 pg/dL 05/25/17 05/25/17 05/26/17 21:50 21:50 04:00 PT INR Total Creatine Kinase 1657 H Troponin I < 0.02 < 0.02 Triglycerides Cholesterol LDL Cholesterol VLDL Cholesterol HDL Cholesterol TSH Free T4 Free T3 pg/dL 05/26/17 04:00 PT INR Total Creatine Kinase Troponin I Triglycerides 322 H Cholesterol 229 H LDL Cholesterol 117 VLDL Cholesterol 64 H HDL Cholesterol 48 TSH Free T4 1.39 Free T3 pg/dL 2.8 POC Glucose 05/25/17 21:59 POC Glucose 123 H Current Home Med List Medication Instructions Recorded Confirmed Type Albuterol Sulfate [Ventolin Hfa] 2 puff IH Q4H PRN PRN 05/25/17 05/25/17 History Amox/Clavulanate Tablet [Augmentin 1 tablet PO Q8H 05/25/17 05/25/17 History Tablet] Clopidogrel Bisulfate [Plavix] 75 mg PO DAILY 05/25/17 05/25/17 History Guaifenesin/Codeine Phosphate 10 ml PO Q4H PRN PRN 05/25/17 05/25/17 History [Virtussin AC Liquid] Guaifenesin/Dextromethorphan 1 each PO Q12H 05/25/17 05/25/17 History [Mucinex Dm ER 600-30 mg Tablet] Metoprolol(XL)Succ [Toprol Xl 25 mg PO DAILY 05/25/17 05/25/17 History (Beta Luis Fernando)] Prednisone [Prednisone] See Taper PO DAILY 05/25/17 05/25/17 History Simvastatin [Zocor] 20 mg PO QHS 05/25/17 05/25/17 History Current Medications Generic Name Dose Route Start Last Admin Trade Name Freq PRN Reason Stop Dose Admin Acetaminophen 650 mg 05/25/17 15:34 Tylenol PO Q4H PRN PRN Headache/Temp>99F Acetaminophen 650 mg 05/25/17 15:34 Tylenol RECTAL Q4H PRN PRN Headache/Temp>99F Acetaminophen 650 mg 05/25/17 15:34 Tylenol Liquid NG Q4H PRN PRN Headache/Temp>99F Aspirin 300 mg 05/26/17 10:00 Aspirin RECTAL DAILY YESENIA Clopidogrel Bisulfate 75 mg 05/26/17 10:00 Plavix PO DAILY YESENIA Enoxaparin Sodium 40 mg 05/25/17 23:15 05/25/17 23:16 Lovenox SC 40 mg DAILY@1000 YESENIA Administration Sodium Chloride 1,000 mls @ 125 mls/hr 05/25/17 15:34 05/26/17 08:32 IV 125 mls/hr .Q8H YESENIA Administration Sodium Chloride 250 mls @ 15 mls/hr 05/25/17 16:43 IV .[id number] PRN SALINE FLUSH Sodium Chloride 250 mls @ 15 mls/hr 05/25/17 16:44 IV .[id number] PRN SALINE FLUSH Labetalol HCl 10 mg 05/25/17 15:34 Trandate IV 05/26/17 15:35 Q10M PRN MAINTAIN SBP GOALS Magnesium Hydroxide 30 ml 05/25/17 15:34 Milk Of Magnesia PO DAILY PRN PRN Constipation Sodium Chloride 5 - 30 ml 05/25/17 16:43 05/25/17 18:25 IV 30 ml UD PRN Administration SALINE FLUSH Assessment/Plan Active and Suspected Problems CVA (cerebral vascular accident) (Acute) Acute 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 Debility includes right hemiparesis and neglect as well as hemianopsia and receptive aphasia. Plan: Initiate therapies Permissive hypertension [place] ASA for now, restart Plavix when able Statin therapy Consider rehab Repeat scans as needed
--- NOTE | 2017-05-26 08:53 | CON.PCM_ITS ---
Reason for Consult Date of Consultation: 05/26/17 Reason for Consultation: CVA History of Present Illness: The patient is a 41 year old M who was found down in his hotel room, was brought to the emergency department and was found to have a large left MCA distribution stroke. He apparently has had a stroke in the past and has been on Plavix and blood pressure medicines but history is unclear. 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 He is unable to give his history otherwise. Further testing has been performed including MRI and MRA which has confirmed his left MCA distribution stroke as well as a left carotid occlusion extending into his MCA territory. per admit h&p:The patient is a 41 year old M who was found in his hotel room after screaming out. Patient was found to be disheveled and confused. Patient had numerous scrapes on his body as well. Patient was brought to the hospital for evaluation. In the emergency room patient was confused and unable to write any history. Patient was noted to have right-sided hemiparesis. Patient had a CAT scan that was concerning for herpetic encephalitis. I discussed with Dr. Milian, who reviewed the films and is concern for an acute left MCA stroke and requested a CT angiogram be performed. Discussed with the patient's and stated the patient had a stroke when he was 28 and had a heart attack when he was 38 and has a stent. She denies any history of drug abuse for the patient 's. Past Medical History Past Medical History (Chronic Problems): Chronic Problems CAD (coronary artery disease) (Chronic) Allergies No Known Allergies Allergy (Verified 05/25/17 15:07) Home Medications: Ambulatory Orders Medication Instructions Recorded Albuterol Sulfate [Ventolin Hfa] 2 puff IH Q4H PRN PRN 05/25/17 Amox/Clavulanate Tablet [Augmentin 1 tablet PO Q8H 05/25/17 Tablet] Clopidogrel Bisulfate [Plavix] 75 mg PO DAILY 05/25/17 Guaifenesin/Codeine Phosphate 10 ml PO Q4H PRN PRN 05/25/17 [Virtussin AC Liquid] Guaifenesin/Dextromethorphan 1 each PO Q12H 05/25/17 [Mucinex Dm ER 600-30 mg Tablet] Metoprolol(XL)Succ [Toprol Xl 25 mg PO DAILY 05/25/17 (Beta Luis Fernando)] Prednisone [Prednisone] See Taper PO DAILY 05/25/17 Simvastatin [Zocor] 20 mg PO QHS 05/25/17 Lives: Spouse/ Significant Other, - - Currently living in the [facility] and is from [place] 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 Smoking Status: Current every day smoker Tobacco Use: Cigarettes - *Family History Maternal History Items: - - unable to obtain as patient is confused Review of Systems Unable to obtain accurate/complete ROS d/t: confused Patient Problems: Active and Suspected Problems CVA (cerebral vascular accident) (Acute) Objective: On examination he is awake and follows simple commands lying he knows his age and the month There is a right central 7 Right hemianopsia Right arm is flaccid. He is not able to hold his right leg up off of the bed but there is some effort. Left arm and left leg are normal He has right-sided neglect Some receptive aphasia line NIH stroke scale score is 14 - Physical Exam Vital Signs Temp Pulse Resp BP Pulse Ox 36.8 C 111 H 29 H 119/66 94 05/26/17 07:00 05/26/17 07:14 05/26/17 07:00 05/26/17 07:00 05/26/17 07:00 Oxygen Flow Rate (L/min) 2 Oxygen Delivery Method Room Air Weight: 105.1 kg Body Mass Index (BMI) 31.4 Intake and Output for Last 24 Hours 05/24/17 05/25/17 05/26/17 23:59 23:59 23:59 Intake Total 370 / 370 997 / 997 Output Total 325 / 325 900 / 900 Balance 45 / 45 97 / 97 Laboratory Tests Past 24 Hrs 05/25/17 05/25/17 05/25/17 16:14 16:14 18:30 PT 12.9 INR 1.0 Total Creatine Kinase Troponin I < 0.02 < 0.02 Triglycerides Cholesterol LDL Cholesterol VLDL Cholesterol HDL Cholesterol TSH 0.28 L Free T4 Free T3 pg/dL 05/25/17 05/25/17 05/26/17 21:50 21:50 04:00 PT INR Total Creatine Kinase 1657 H Troponin I < 0.02 < 0.02 Triglycerides Cholesterol LDL Cholesterol VLDL Cholesterol HDL Cholesterol TSH Free T4 Free T3 pg/dL 05/26/17 04:00 PT INR Total Creatine Kinase Troponin I Triglycerides 322 H Cholesterol 229 H LDL Cholesterol 117 VLDL Cholesterol 64 H HDL Cholesterol 48 TSH Free T4 1.39 Free T3 pg/dL 2.8 POC Glucose 05/25/17 21:59 POC Glucose 123 H Current Home Med List Medication Instructions Recorded Confirmed Type Albuterol Sulfate [Ventolin Hfa] 2 puff IH Q4H PRN PRN 05/25/17 05/25/17 History Amox/Clavulanate Tablet [Augmentin 1 tablet PO Q8H 05/25/17 05/25/17 History Tablet] Clopidogrel Bisulfate [Plavix] 75 mg PO DAILY 05/25/17 05/25/17 History Guaifenesin/Codeine Phosphate 10 ml PO Q4H PRN PRN 05/25/17 05/25/17 History [Virtussin AC Liquid] Guaifenesin/Dextromethorphan 1 each PO Q12H 05/25/17 05/25/17 History [Mucinex Dm ER 600-30 mg Tablet] Metoprolol(XL)Succ [Toprol Xl 25 mg PO DAILY 05/25/17 05/25/17 History (Beta Luis Fernando)] Prednisone [Prednisone] See Taper PO DAILY 05/25/17 05/25/17 History Simvastatin [Zocor] 20 mg PO QHS 05/25/17 05/25/17 History Current Medications Generic Name Dose Route Start Last Admin Trade Name Freq PRN Reason Stop Dose Admin Acetaminophen 650 mg 05/25/17 15:34 Tylenol PO Q4H PRN PRN Headache/Temp>99F Acetaminophen 650 mg 05/25/17 15:34 Tylenol RECTAL Q4H PRN PRN Headache/Temp>99F Acetaminophen 650 mg 05/25/17 15:34 Tylenol Liquid NG Q4H PRN PRN Headache/Temp>99F Aspirin 300 mg 05/26/17 10:00 Aspirin RECTAL DAILY YESENIA Clopidogrel Bisulfate 75 mg 05/26/17 10:00 Plavix PO DAILY YESENIA Enoxaparin Sodium 40 mg 05/25/17 23:15 05/25/17 23:16 Lovenox SC 40 mg DAILY@1000 YESENIA Administration Sodium Chloride 1,000 mls @ 125 mls/hr 05/25/17 15:34 05/26/17 08:32 IV 125 mls/hr .Q8H YESENIA Administration Sodium Chloride 250 mls @ 15 mls/hr 05/25/17 16:43 IV .[id number] PRN SALINE FLUSH Sodium Chloride 250 mls @ 15 mls/hr 05/25/17 16:44 IV .[id number] PRN SALINE FLUSH Labetalol HCl 10 mg 05/25/17 15:34 Trandate IV 05/26/17 15:35 Q10M PRN MAINTAIN SBP GOALS Magnesium Hydroxide 30 ml 05/25/17 15:34 Milk Of Magnesia PO DAILY PRN PRN Constipation Sodium Chloride 5 - 30 ml 05/25/17 16:43 05/25/17 18:25 IV 30 ml UD PRN Administration SALINE FLUSH Assessment/Plan Active and Suspected Problems CVA (cerebral vascular accident) (Acute) Acute 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 Debility includes right hemiparesis and neglect as well as hemianopsia and receptive aphasia. Plan: Initiate therapies Permissive hypertension [place] ASA for now, restart Plavix when able Statin therapy Consider rehab Repeat scans as needed
[2017-05-26] MEDS: Enoxaparin 40 MG/0.4 ML Syringe SC (09:39)
[2017-05-26] MEDS: Aspirin 300 MG Suppository RECTAL (09:39)
--- NOTE | 2017-05-26 13:09 | NURSING ---
Was asked to see patient for numerous abrasions to the body. patient was in a hotel room and had a stroke. was found by hotel staff after patient was yelling for help. according to nursing staff, patient had been scooting on the right side and has some rug portillo. all floor portillo/abrasions are dry with thin scabbing noted. no signs of infection noted. since there is no drainage noted and no erythema noted, can leave [employer]. will monitor, but no wound care needed at this time.
[2017-05-26] MEDS: Clopidogrel Bisulfate 75 MG Tablet PO (14:10)
--- NOTE | 2017-05-26 14:24 | CASEMGMT ---
DC PLAN undetermined. DC Planning undetermined. [place]. If Inpt Rehab is recommended, will need precertification. is coming to [facility] this evening. CM will f/u tomorrow to initiate dc planning. Afshin JACOBN RN ACM
--- NOTE | 2017-05-26 16:34 | PCM.PROGNOTE ---
Patient Problems: Active and Suspected Problems CVA (cerebral vascular accident) (Acute) Subjective: Awake, but confused. No movements of right upper or lower extremities. Some inappropriate responses / remarks. - Physical Exam General: Alert, Confused, Disoriented HEENT: Atraumatic, Normocephalic Oral: Moist Mucosa Neck: Supple Lungs: Clear to auscultation Cardiovascular: Regular rate, Regular Rhythm, Normal S1, Normal S2, No murmurs Abdomen: Bowel Sounds Present, Soft, Non Tender, Non-Distended, No Hepato-splenomegaly Extremities: No clubbing, No cyanosis, No edema Skin: No rashes, - - abrasion around knees and right elbow. Musculoskeletal: No Tenderness to Palpation of Joints or Extremities, No Muscle Wasting Lymphatic: No Cervical, Supraclavicular, or Inguinal Adenopathy Neurological: - - Right facial droop, left hemiparesis with 1/5 motor strength upper and lower ext. Psych/Mental Status: Impulsive Vital Signs Temp Pulse Resp BP Pulse Ox 97.9 F 103 H 16 117/61 95 05/26/17 12:00 05/26/17 16:00 05/26/17 16:00 05/26/17 16:00 05/26/17 16:00 Oxygen Flow Rate (L/min) 2 Oxygen Delivery Method Room Air Weight: 231 lb 11.293 oz Body Mass Index (BMI) 31.4 Intake and Output for Last 24 Hours 05/24/17 05/25/17 05/26/17 23:59 23:59 23:59 Intake Total 370 / 370 997 / 997 Output Total 325 / 325 1550 / 1550 Balance 45 / 45 -553 / -553 Laboratory Tests Past 24 Hrs 05/25/17 05/25/17 05/25/17 16:14 16:14 18:30 PT 12.9 INR 1.0 Total Creatine Kinase Troponin I < 0.02 < 0.02 Triglycerides Cholesterol LDL Cholesterol VLDL Cholesterol HDL Cholesterol TSH 0.28 L Free T4 Free T3 pg/dL 05/25/17 05/25/17 05/26/17 21:50 21:50 04:00 PT INR Total Creatine Kinase 1657 H Troponin I < 0.02 < 0.02 Triglycerides Cholesterol LDL Cholesterol VLDL Cholesterol HDL Cholesterol TSH Free T4 Free T3 pg/dL 05/26/17 04:00 PT INR Total Creatine Kinase Troponin I Triglycerides 322 H Cholesterol 229 H LDL Cholesterol 117 VLDL Cholesterol 64 H HDL Cholesterol 48 TSH Free T4 1.39 Free T3 pg/dL 2.8 POC Glucose 05/25/17 21:59 POC Glucose 123 H Diagnostic Data Abdomen/Pelvis CT 05/25/17 10:46 IMPRESSION: No acute findings throughout the abdomen and pelvis. Status post appendectomy. Borderline hepatomegaly. Electronically Signed: Les ShiplyeDO ludin at 11:32 EDT Tel , Service support , Chest X-Ray 05/25/17 10:46 IMPRESSION: Hypoinflated lungs. Lungs are clear. Electronically Signed: Les ShipleyDO ludin at 11:34 EDT Tel , Service support , Brain CT 05/25/17 11:37 IMPRESSION: Abnormal CT head scan showing nonenhancing abnormal edema in both temporal lobes, left greater than right, the insular lobes, left greater than right, the left frontal operculum, left greater than right, left subinsular white matter and left retrolenticular white matter. 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 RECOMMENDATION: MRI of the brain with and without contrast and MRA of the head. Electronically Signed: Raza Enciso MD at 13:34 EDT , Service support , Brain MRI 05/25/17 15:34 IMPRESSION: Acute ischemic infarction of the left frontal temporal and parietal lobes secondary to left internal carotid occlusion. MRA recommended for further evaluation. Electronically Signed: Juan Jose Guy MD at 22:20 EDT , Service support , Head MRA 05/25/17 19:11 IMPRESSION: Findings consistent with occlusion of the petrous portion of the left internal carotid extending to the level of the middle cerebral artery. Electronically Signed: Juan Jose Guy MD at 22:23 EDT , Service support , Neck MRA 05/25/17 19:11 IMPRESSION: Occluded left internal carotid just distal to the bifurcation. Electronically Signed: Juan Jose Guy MD at 22:24 EDT , Service support , Medical Necessity - Tobacco Use Smoking Status: Current every day smoker Tobacco Use: Cigarettes Assessment/Plan Active and Suspected Problems CVA (cerebral vascular accident) (Acute) The patient is a 41 year old M who was found in his hotel room after screaming out. Patient was found to be disheveled and confused. Patient had numerous scrapes on his body as well. Patient was brought to the hospital for evaluation. In the emergency room patient was confused and unable to write any history. Patient was noted to have right-sided hemiparesis. Patient had a CTA head that was concerning for herpetic encephalitis. He had MRI / MRA of brain later in the evening, showing acute ischemic infarction of left frontal, temporal, and parietal lobes secondary to left internal carotid occlusion. He had a stroke when he was 28 and had a heart attack when he was 38 and has a stent. She denies any history of drug abuse for the patient's. 1. Acute left MCA stroke Involving frontal, parietal, and temporal lobes. Permissive blood pressure control for hypertension. Neurology consultation appreciated. He is currently guarded but stable. Continue care in ICU. ST/PT/OT. 2. Coronary artery disease EKG/troponin normal. Continue statin, Plavix, and metoprolol. 3. Occluded left carotid artery. MRA showed occlusion of petrous portion of the left internal carotid extending to the level of the middle cerebral artery. He will need vascular surgery consultation as outpatient. DVT prophylaxis with Lovenox Code Visit Inpatient E&M: [id number] [facility] Hosp L3
--- NOTE | 2017-05-26 16:45 | PN_ITS ---
Patient Problems: Active and Suspected Problems CVA (cerebral vascular accident) (Acute) Subjective: Awake, but confused. No movements of right upper or lower extremities. Some inappropriate responses / remarks. - Physical Exam General: Alert, Confused, Disoriented HEENT: Atraumatic, Normocephalic Oral: Moist Mucosa Neck: Supple Lungs: Clear to auscultation Cardiovascular: Regular rate, Regular Rhythm, Normal S1, Normal S2, No murmurs Abdomen: Bowel Sounds Present, Soft, Non Tender, Non-Distended, No Hepato- splenomegaly Extremities: No clubbing, No cyanosis, No edema Skin: No rashes, - - abrasion around knees and right elbow. Musculoskeletal: No Tenderness to Palpation of Joints or Extremities, No Muscle Wasting Lymphatic: No Cervical, Supraclavicular, or Inguinal Adenopathy Neurological: - - Right facial droop, left hemiparesis with 1/5 motor strength upper and lower ext. Psych/Mental Status: Impulsive Vital Signs Temp Pulse Resp BP Pulse Ox 97.9 F 103 H 16 117/61 95 05/26/17 12:00 05/26/17 16:00 05/26/17 16:00 05/26/17 16:00 05/26/17 16:00 Oxygen Flow Rate (L/min) 2 Oxygen Delivery Method Room Air Weight: 231 lb 11.293 oz Body Mass Index (BMI) 31.4 Intake and Output for Last 24 Hours 05/24/17 05/25/17 05/26/17 23:59 23:59 23:59 Intake Total 370 / 370 997 / 997 Output Total 325 / 325 1550 / 1550 Balance 45 / 45 -553 / -553 Laboratory Tests Past 24 Hrs 05/25/17 05/25/17 05/25/17 16:14 16:14 18:30 PT 12.9 INR 1.0 Total Creatine Kinase Troponin I < 0.02 < 0.02 Triglycerides Cholesterol LDL Cholesterol VLDL Cholesterol HDL Cholesterol TSH 0.28 L Free T4 Free T3 pg/dL 05/25/17 05/25/17 05/26/17 21:50 21:50 04:00 PT INR Total Creatine Kinase 1657 H Troponin I < 0.02 < 0.02 Triglycerides Cholesterol LDL Cholesterol VLDL Cholesterol HDL Cholesterol TSH Free T4 Free T3 pg/dL 05/26/17 04:00 PT INR Total Creatine Kinase Troponin I Triglycerides 322 H Cholesterol 229 H LDL Cholesterol 117 VLDL Cholesterol 64 H HDL Cholesterol 48 TSH Free T4 1.39 Free T3 pg/dL 2.8 POC Glucose 05/25/17 21:59 POC Glucose 123 H Diagnostic Data Abdomen/Pelvis CT 05/25/17 10:46 IMPRESSION: No acute findings throughout the abdomen and pelvis. Status post appendectomy. Borderline hepatomegaly. Electronically Signed: Les ShipleyDO ludin at 11:32 EDT Tel , Service support , Chest X-Ray 05/25/17 10:46 IMPRESSION: Hypoinflated lungs. Lungs are clear. Electronically Signed: Les ShipleyDO ludin at 11:34 EDT Tel , Service support , Brain CT 05/25/17 11:37 IMPRESSION: Abnormal CT head scan showing nonenhancing abnormal edema in both temporal lobes, left greater than right, the insular lobes, left greater than right, the left frontal operculum, left greater than right, left subinsular white matter and left retrolenticular white matter. 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 RECOMMENDATION: MRI of the brain with and without contrast and MRA of the head. Electronically Signed: Raza Enciso MD at 13:34 EDT , Service support , Brain MRI 05/25/17 15:34 IMPRESSION: Acute ischemic infarction of the left frontal temporal and parietal lobes secondary to left internal carotid occlusion. MRA recommended for further evaluation. Electronically Signed: Juan Jose Guy MD at 22:20 EDT , Service support , Head MRA 05/25/17 19:11 IMPRESSION: Findings consistent with occlusion of the petrous portion of the left internal carotid extending to the level of the middle cerebral artery. Electronically Signed: Juan Jose Guy MD at 22:23 EDT , Service support , Neck MRA 05/25/17 19:11 IMPRESSION: Occluded left internal carotid just distal to the bifurcation. Electronically Signed: Juan Jose Guy MD at 22:24 EDT , Service support , Medical Necessity - Tobacco Use Smoking Status: Current every day smoker Tobacco Use: Cigarettes Assessment/Plan Active and Suspected Problems CVA (cerebral vascular accident) (Acute) The patient is a 41 year old M who was found in his hotel room after screaming out. Patient was found to be disheveled and confused. Patient had numerous scrapes on his body as well. Patient was brought to the hospital for evaluation. In the emergency room patient was confused and unable to write any history. Patient was noted to have right-sided hemiparesis. Patient had a CTA head that was concerning for herpetic encephalitis. He had MRI / MRA of brain later in the evening, showing acute ischemic infarction of left frontal, temporal, and parietal lobes secondary to left internal carotid occlusion. He had a stroke when he was 28 and had a heart attack when he was 38 and has a stent. She denies any history of drug abuse for the patient's. 1. Acute left MCA stroke Involving frontal, parietal, and temporal lobes. Permissive blood pressure control for hypertension. Neurology consultation appreciated. He is currently guarded but stable. Continue care in ICU. ST/PT/OT. 2. Coronary artery disease EKG/troponin normal. Continue statin, Plavix, and metoprolol. 3. Occluded left carotid artery. MRA showed occlusion of petrous portion of the left internal carotid extending to the level of the middle cerebral artery. He will need vascular surgery consultation as outpatient. DVT prophylaxis with Lovenox Code Visit Inpatient E&M: [id number] [facility] Hosp L3
[2017-05-26] MEDS: CHLORHEXIDINE GLUC 2% CLOTH 1 EACH TOWELETTE TOPICAL (17:21)
--- NOTE | 2017-05-26 18:24 | NURSING ---
Pt's and 2 children now at hospital. Emotional support given. Pt recognizing family members. denies questions at this time.
--- NOTE | 2017-05-26 18:48 | NURSING ---
Discussed at length pt plan of care and potential anticipated needs at discharge. Answered all questions. Explained ICU rounds tomorrow. Pt's verbalizes that she will be in town until next Tuesday. Also explained to pt's visiting hours and age restrictions as pt's daughter appears grade school age. Informed pt's of risks of infection while visiting the ICU and clarified that the pt's daughter was not ill. Offered mask to offer protection to pt's daughter. declined at this time. Pt's denies further questions and is now again at bedside offering support to spouse. Will continue to monitor.
[2017-05-26] MEDS: 0.9% NaCl Peripheral Flush Adult/Peds IV (23:44)
[2017-05-26] MEDS: Haloperidol Lactate 5 MG/ML Vial IV (23:44)
[2017-05-27] VITALS (13 sets, daily range): BP systolic 129–168; BP diastolic 83–122; PULSE 66–105; RESP 8–20; TEMP 36.6–37; O2SAT 93–98; BMI 31.4
[2017-05-27] MEDS: 0.9% Normal Saline 1,000 ML 125 ML IV ×3 (01:36→19:43)
[2017-05-27 05:07] LABS: Hematocrit 44.3 % (40-54); Hemoglobin 15.2 g/dl (13.0-16.5); Mean Corp Hgb Conc 34.3 g/gl (32-36); Mean Corpuscular Hgb 31.9 pg (27.0-32.0); Mean Corpuscular Volume 92.9 fL (80-94); Mean Platelet Vol. 9.1 fl (6.2-12.0); Platelet Count 223 K/mm3 (150-450); RBC Distribution Width CV 13.7 % (11.6-14.6); RBC Distribution Width SD 45.6 fl (35.1-43.9); Red Blood Count 4.77 M/mm3 (4.6-6.2); White Blood Count 14.1 K/mm3 (4.4-11.0)
[2017-05-27 05:11] LABS: Scan Indicated on CBC? Y/N NO
[2017-05-27 05:14] LABS: Anion Gap 7 (5-15); BUN 15 mg/dL (7-18); BUN/Creat Ratio 16.5 RATIO (10-20); Calcium,Total 8.4 mg/dL (8.5-10.1); Chloride 106 mmol/L (98-107); Creatinine, Serum 0.91 mg/dL (0.70-1.30); EST Glomerular Filtration Rate 96 mL/min (>60); Est Glom Filt Rate - Afr Amer 117 mL/min (>60); Estimated Creatinine Clearance 114.88 ml/min; Glucose 113 mg/dL (74-106); Potassium 4.1 mmol/L (3.5-5.1); Sodium Level 140 mmol/L (136-145)
[2017-05-27] MEDS: CHLORHEXIDINE GLUC 2% CLOTH 1 EACH TOWELETTE TOPICAL (05:55)
--- NOTE | 2017-05-27 07:17 | PN_ITS ---
Subjective: The patient was seen and examined at the bedside this morning. Events from the last 24 hours have been reviewed. The patient is currently afebrile, hemodynamically stable and maintaining appropriate oxygen saturations on room air. Nursing staff did report that the patient became agitated overnight, requiring administration of Haldol. He is otherwise stable and neurologically unchanged. Objective: The patient's most recent lab work, culture data and imaging studies have all been personally reviewed. CT head revealed nonenhancing edema in both temporal lobes worrisome for HSV encephalitis versus neoplasm versus ischemic infarcts. A follow-up MRI brain was subsequently obtained and revealed an acute ischemic infarction of the left frontal temporal and parietal lobes secondary to left internal carotid occlusion. Neck MRA confirmed complete occlusion of the left internal carotid. Surface echocardiogram revealed evidence of stage I diastolic dysfunction with an ejection fraction of 65%. General: Alert, Cooperative, No apparent distress HEENT: Atraumatic, PERRLA, Normocephalic Oral: Dry Mucosa Neck: Supple, No Nodes, Trachea Midline Lungs: No rhonchi, No wheeze, No rales, Diminished Cardiovascular: Regular rate, Regular Rhythm, Normal S1, Normal S2, No murmurs Abdomen: Bowel Sounds Present, Soft, Non Tender Extremities: No clubbing, No cyanosis, No edema Skin: - - No significant change from previous Musculoskeletal: No Muscle Wasting Lymphatic: No Cervical, Supraclavicular, or Inguinal Adenopathy Neurological: - - No significant change from prior neurological exam Psych/Mental Status: Restless Vital Signs Temp Pulse Resp BP Pulse Ox 98.4 F 66 9 L 135/83 H 98 05/27/17 06:00 05/27/17 06:00 05/27/17 06:00 05/27/17 06:00 05/27/17 06:00 Oxygen Flow Rate (L/min) 2 Oxygen Delivery Method Room Air Weight: 234 lb 2.095 oz Body Mass Index (BMI) 31.4 Intake and Output for Last 24 Hours 05/25/17 05/26/17 05/27/17 23:59 23:59 23:59 Intake Total 370 / 370 2765 / 2765 1566 / 1566 Output Total 325 / 325 1900 / 1900 1025 / 1025 Balance 45 / 45 865 / 865 541 / 541 Labs (Last 48 Hours) 05/25/17 05/25/17 05/25/17 16:14 16:14 18:30 WBC RBC Hgb Hct MCV MCH MCHC RDW RDW Differential Plt Count MPV PT 12.9 INR 1.0 Sodium Potassium Chloride Carbon Dioxide Anion Gap BUN Creatinine Estim Creat Clear Calc Est GFR (MDRD) Af Amer Est GFR (MDRD) Non-Af BUN/Creatinine Ratio Glucose Calcium Total Creatine Kinase Troponin I < 0.02 < 0.02 Triglycerides Cholesterol LDL Cholesterol VLDL Cholesterol HDL Cholesterol TSH 0.28 L Free T4 Free T3 pg/dL POC Glucose 05/25/17 05/25/17 05/25/17 21:50 21:50 21:59 WBC RBC Hgb Hct MCV MCH MCHC RDW RDW Differential Plt Count MPV PT INR Sodium Potassium Chloride Carbon Dioxide Anion Gap BUN Creatinine Estim Creat Clear Calc Est GFR (MDRD) Af Amer Est GFR (MDRD) Non-Af BUN/Creatinine Ratio Glucose Calcium Total Creatine Kinase 1657 H Troponin I < 0.02 Triglycerides Cholesterol LDL Cholesterol VLDL Cholesterol HDL Cholesterol TSH Free T4 Free T3 pg/dL POC Glucose 123 H 05/26/17 05/26/17 05/27/17 04:00 04:00 04:50 WBC 14.1 H RBC 4.77 Hgb 15.2 Hct 44.3 MCV 92.9 MCH 31.9 MCHC 34.3 RDW 13.7 RDW Differential 45.6 H Plt Count 223 MPV 9.1 PT INR Sodium Potassium Chloride Carbon Dioxide Anion Gap BUN Creatinine Estim Creat Clear Calc Est GFR (MDRD) Af Amer Est GFR (MDRD) Non-Af BUN/Creatinine Ratio Glucose Calcium Total Creatine Kinase Troponin I < 0.02 Triglycerides 322 H Cholesterol 229 H LDL Cholesterol 117 VLDL Cholesterol 64 H HDL Cholesterol 48 TSH Free T4 1.39 Free T3 pg/dL 2.8 POC Glucose 05/27/17 04:50 WBC RBC Hgb Hct MCV MCH MCHC RDW RDW Differential Plt Count MPV PT INR Sodium 140 Potassium 4.1 Chloride 106 Carbon Dioxide 27.0 Anion Gap 7 BUN 15 Creatinine 0.91 Estim Creat Clear Calc 114.88 Est GFR (MDRD) Af Amer 117 Est GFR (MDRD) Non-Af 96 BUN/Creatinine Ratio 16.5 Glucose 113 H Calcium 8.4 L Total Creatine Kinase Troponin I Triglycerides Cholesterol LDL Cholesterol VLDL Cholesterol HDL Cholesterol TSH Free T4 Free T3 pg/dL POC Glucose Clinical Impression(s) from Imaging Studies Abdomen/Pelvis CT 05/25/17 10:46 IMPRESSION: No acute findings throughout the abdomen and pelvis. Status post appendectomy. Borderline hepatomegaly. Electronically Signed: Les Holland DO at 11:32 EDT Tel , Service support , Brain CT 05/25/17 10:46 IMPRESSION: No acute intracranial pathology. Left maxillary sinusitis. Electronically Signed: Les Holland at 11:33 EDT Tel , Service support , Chest X-Ray 05/25/17 10:46 IMPRESSION: Hypoinflated lungs. Lungs are clear. Electronically Signed: Les Holland at 11:34 EDT Tel , Service support , Brain CT 05/25/17 11:37 IMPRESSION: Abnormal CT head scan showing nonenhancing abnormal edema in both temporal lobes, left greater than right, the insular lobes, left greater than right, the left frontal operculum, left greater than right, left subinsular white matter and left retrolenticular white matter. 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 RECOMMENDATION: MRI of the brain with and without contrast and MRA of the head. Electronically Signed: Raza Enciso MD at 13:34 EDT , Service support , Brain MRI 05/25/17 15:34 IMPRESSION: Acute ischemic infarction of the left frontal temporal and parietal lobes secondary to left internal carotid occlusion. MRA recommended for further evaluation. Electronically Signed: Juan Jose Guy MD at 22:20 EDT , Service support , Head MRA 05/25/17 19:11 IMPRESSION: Findings consistent with occlusion of the petrous portion of the left internal carotid extending to the level of the middle cerebral artery. Electronically Signed: Juan Jose Guy MD at 22:23 EDT , Service support , Neck MRA 05/25/17 19:11 IMPRESSION: Occluded left internal carotid just distal to the bifurcation. Electronically Signed: Juan Jose Guy MD at 22:24 EDT , Service support , Medical Necessity - Tobacco Use Smoking Status: Current every day smoker Tobacco Use: Cigarettes Assessment/Plan Active and Suspected Problems CVA (cerebral vascular accident) (Acute) RECOMMENDATIONS: 1. Continue management per stroke protocol 2. Discontinue supplemental IV fluids 3. Neurology is following. Additional head imaging per their recommendations. 4. Allow for permissive hypertension. Gradual blood pressure lowering when okay by neurology. 5. Continue work with PT/OT. Consider inpatient rehab disposition IMPRESSIONS: 1. Acute ischemic infarction Continue stroke management per protocol. Allow for permissive hypertension for now. Aspirin and Plavix can be continued. Patient to continue to work with PT/ OT. Supplemental IV fluids can be discontinued from my perspective. The patient will require eventual initiation of antihypertensives once okay by neurology. The patient will also require the initiation of a statin. Consider inpatient rehabilitation. The patient will need to follow-up with vascular surgery on an outpatient basis to address his occluded left ICA. 2. Personal history of coronary artery disease status post PTCA Continue aspirin and Plavix. The patient will require initiation of a statin. 3. Hypertension/hyperlipidemia/tobacco dependence Complicates care, management, recovery and prognosis. Holding antihypertensives for now. Tobacco cessation is recommended. This note was generated with [employer] dictation software. It may contain incorrect words, spelling, and punctuation that were not noted in checking the note before signing. DISPOSITION: The patient is medically stable for transfer out of the intensive care unit. Given the lack of ongoing ICU needs, will sign off. Please call with any additional questions. Code Visit Inpatient E&M: [id number] [facility] Hosp L2
--- NOTE | 2017-05-27 10:51 | CASEMGMT ---
Pt's and children are here now. SW and physician spoke w/ in room. Physician explained to everything medically that is going on w/pt. SW and physician then reviewed discharge options. Pt lives a [address] fro here in [place]. As per physician, pt would have a difficult time making the [address] SW explained it is not likely that insurance would cover the cost of transport to [place]. agreeable to SW looking into seeing if insurance will cover rehab here, and seeing what transportation would be covered. The tentative plan would be for pt to get some rehab here, and once he is able to go back to [place], go to a rehab there or go home. states she also has an [employer] plan that may cover therapy. SW called rehab, Jenae is going to look into pt's insurance to see if it will cover rehab. SW will look into transportation shortly. HOMA Saunders, MUSHROOM PRESS OPERATOR
--- NOTE | 2017-05-27 10:52 | PCM.PN.NEU ---
Patient Problems: Active and Suspected Problems CVA (cerebral vascular accident) (Acute) Subjective: pt currently with pt, sit to stand max assist of 2. denies complaints. Objective: exam stable able to tell me his name right side remains paretic with minimal tone and right agnosia right hemianopsia - Physical Exam Vital Signs Temp Pulse Resp BP Pulse Ox 36.9 C 70 8 L 160/95 H 96 05/27/17 06:00 05/27/17 08:00 05/27/17 08:00 05/27/17 08:00 05/27/17 08:00 Oxygen Flow Rate (L/min) 2 Oxygen Delivery Method Room Air Weight: 106.2 kg Body Mass Index (BMI) 31.4 Intake and Output for Last 24 Hours 05/25/17 05/26/17 05/27/17 23:59 23:59 23:59 Intake Total 370 / 370 2765 / 2765 1566 / 1566 Output Total 325 / 325 1900 / 1900 1025 / 1025 Balance 45 / 45 865 / 865 541 / 541 Laboratory Tests Past 24 Hrs 05/27/17 05/27/17 04:50 04:50 WBC 14.1 H RBC 4.77 Hgb 15.2 Hct 44.3 MCV 92.9 MCH 31.9 MCHC 34.3 RDW 13.7 RDW Differential 45.6 H Plt Count 223 MPV 9.1 Sodium 140 Potassium 4.1 Chloride 106 Carbon Dioxide 27.0 Anion Gap 7 BUN 15 Creatinine 0.91 Estim Creat Clear Calc 114.88 Est GFR (MDRD) Af Amer 117 Est GFR (MDRD) Non-Af 96 BUN/Creatinine Ratio 16.5 Glucose 113 H Calcium 8.4 L Medical Necessity - Tobacco Use Smoking Status: Current every day smoker Tobacco Use: Cigarettes Assessment/Plan Active and Suspected Problems CVA (cerebral vascular accident) (Acute) Acute 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 Debility includes right hemiparesis and neglect as well as hemianopsia and receptive aphasia. Plan: Initiate therapies Permissive hypertension ID ASA for now, restart Plavix when able Statin therapy Consider rehab Repeat scans as needed
[2017-05-27] MEDS: Clopidogrel Bisulfate 75 MG Tablet PO (11:09)
[2017-05-27] MEDS: Enoxaparin 40 MG/0.4 ML Syringe SC (11:09)
[2017-05-27] MEDS: Aspirin 300 MG Suppository RECTAL (11:11)
--- NOTE | 2017-05-27 13:49 | CASEMGMT ---
SW called pt's insurance, [facility], regarding transportation benefit. This is SW's best understanding of the coverage: Emergency and nonemergency air and ground ambulance are covered. For ground ambulance, in and out of network is covered the same(RICKY did not ask about air ambulance). For emergency transport, no prior authorization is needed. For non emergency transport, prior authorization is needed. The transport is covered at 80% of the eligible cost, after a $2000 deductible is met. None of the deductible has been met yet. The maximum out of pocket for pt for calendar year is $6500, pt has spent $331 for this year so far. Ambulance is covered for the following situations: from an out of network to an in network hospital, from a hospital to a higher level of care hospital, from a hospital to a short term care facility, and from a short term care facility to a longer term care facility. There is nothing specified in regard to distance, so the insurance company states as long as it is necessary, there is no limit for transport. If transport is needed, a predetermination can be faxed to the following number: . The following information should be included in this request. 1. Our fax number. 2. Clearly state what the predetermination request is for. 3. The member's ID #. 4. Pt's name and date of . 5. Any related service and diagnosis codes 6. Description of the service needed 7. Type of service(inpt or outpt, for this, ambulance) 8. Facility name and physician As per [facility], can take 21 days to make a determination, but it is normally determined in 2-4 days. Pt's left with the children to go back to the hotel, SW asked RN to let SW know she she returns, to give her the above information. RICKY also called Jenae in rehab here at [facility] to see if she has found anything out regarding if rehab here would be covered by pt's insurance. RICKY will continue to follow. HOMA Saunders, MOTION GRAPHICS DESIGNER
--- NOTE | 2017-05-27 14:40 | CASEMGMT ---
SW spoke w/Jenae in rehab, she states that [facility] inpt rehab is in network, she can start precert when indicated. SW spoke w/ who is here now, let her know that inpt rehab is in network and we can start precert when indicated. SW also reviewed w/ the transportation benefit, explained that we would not know until we tried for precert if it would be covered. states she wants to get pt back to [place] as soon as possible, states she pulled the kids from school(kids are 8, 17, and 21). She states they have a flight back home on Tuesday, and doesn't know what to do--if she should go back with the kids and come back, extend the tickets, or what she should do. SW offered support, gently reminded her she does not need to decide that today. also states they have an [employer] policy and may have something for the doctor to completed, she is not certain exactly what she needs to do with this. SW explained to that we can ask the doctor regarding when pt would be safe enough to be transported back to [place]. states understanding. may prefer, if it's medically feasible, for pt to go to inpt rehab in [place], though again, it is not clear at this point if pt would be able to travel that distance(it's 640 miles to pt's hometown from here) at this time. SW explained we can follow up w/the doctor regarding this on Tuesday. Also, though insurance states they will cover transport if medically necessary, they may not deem travelling 640 miles via air or ground ambulance as medically necessary, and we would not know this until it is submitted to insurance. states understanding. SW will continue to follow for discharge planning needs. HOMA Saunders, [employer]
--- NOTE | 2017-05-27 15:53 | PCM.PROGNOTE ---
Patient Problems: Active and Suspected Problems CVA (cerebral vascular accident) (Acute) Subjective: He is very somnolent this morning. He had some movement of right upper and lower extremities. Objective: - Physical Exam General: Alert, Confused, Disoriented HEENT: Atraumatic, Normocephalic Oral: Moist Mucosa Neck: Supple Lungs: Clear to auscultation Cardiovascular: Regular rate, Regular Rhythm, Normal S1, Normal S2, No murmurs Abdomen: Bowel Sounds Present, Soft, Non Tender, Non-Distended, No Hepato-splenomegaly Extremities: No clubbing, No cyanosis, No edema Skin: No rashes, - - abrasion around knees and right elbow. Musculoskeletal: No Tenderness to Palpation of Joints or Extremities, No Muscle Wasting Lymphatic: No Cervical, Supraclavicular, or Inguinal Adenopathy Neurological: - - Right facial droop, left hemiparesis with 1/5 motor strength upper and lower ext. Psych/Mental Status: Impulsive - Physical Exam Vital Signs Temp Pulse Resp BP Pulse Ox 98 F 67 18 141/99 H 96 05/27/17 12:00 05/27/17 12:00 05/27/17 12:00 05/27/17 12:00 05/27/17 12:00 Oxygen Flow Rate (L/min) 2 Oxygen Delivery Method Room Air Weight: 234 lb 2.095 oz Body Mass Index (BMI) 31.4 Intake and Output for Last 24 Hours 05/25/17 05/26/17 05/27/17 23:59 23:59 23:59 Intake Total 370 / 370 2765 / 2765 2353 / 2353 Output Total 325 / 325 1900 / 1900 2024 / 2024 Balance 45 / 45 865 / 865 328 / 328 Laboratory Tests Past 24 Hrs 05/27/17 05/27/17 04:50 04:50 WBC 14.1 H RBC 4.77 Hgb 15.2 Hct 44.3 MCV 92.9 MCH 31.9 MCHC 34.3 RDW 13.7 RDW Differential 45.6 H Plt Count 223 MPV 9.1 Sodium 140 Potassium 4.1 Chloride 106 Carbon Dioxide 27.0 Anion Gap 7 BUN 15 Creatinine 0.91 Estim Creat Clear Calc 114.88 Est GFR (MDRD) Af Amer 117 Est GFR (MDRD) Non-Af 96 BUN/Creatinine Ratio 16.5 Glucose 113 H Calcium 8.4 L Diagnostic Data Abdomen/Pelvis CT 05/25/17 10:46 IMPRESSION: No acute findings throughout the abdomen and pelvis. Status post appendectomy. Borderline hepatomegaly. Electronically Signed: Les Holland at 11:32 EDT Tel , Service support , Chest X-Ray 05/25/17 10:46 IMPRESSION: Hypoinflated lungs. Lungs are clear. Electronically Signed: Les Holland at 11:34 EDT Tel , Service support , Brain CT 05/25/17 11:37 IMPRESSION: Abnormal CT head scan showing nonenhancing abnormal edema in both temporal lobes, left greater than right, the insular lobes, left greater than right, the left frontal operculum, left greater than right, left subinsular white matter and left retrolenticular white matter. 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 RECOMMENDATION: MRI of the brain with and without contrast and MRA of the head. Electronically Signed: Raza Enciso MD at 13:34 EDT , Service support , Brain MRI 05/25/17 15:34 IMPRESSION: Acute ischemic infarction of the left frontal temporal and parietal lobes secondary to left internal carotid occlusion. MRA recommended for further evaluation. Electronically Signed: Juan Jose Guy MD at 22:20 EDT , Service support , Head MRA 05/25/17 19:11 IMPRESSION: Findings consistent with occlusion of the petrous portion of the left internal carotid extending to the level of the middle cerebral artery. Electronically Signed: Juan Jose Guy MD at 22:23 EDT , Service support , Neck MRA 05/25/17 19:11 IMPRESSION: Occluded left internal carotid just distal to the bifurcation. Electronically Signed: Juan Jose Guy MD at 22:24 EDT , Service support , Medical Necessity - Tobacco Use Smoking Status: Current every day smoker Tobacco Use: Cigarettes Assessment/Plan Active and Suspected Problems CVA (cerebral vascular accident) (Acute) The patient is a 41 year old M who was found in his hotel room after screaming out. Patient was found to be disheveled and confused. Patient had numerous scrapes on his body as well. Patient was brought to the hospital for evaluation. In the emergency room patient was confused and unable to write any history. Patient was noted to have right-sided hemiparesis. Patient had a CTA head that was concerning for herpetic encephalitis. He had MRI / MRA of brain later in the evening, showing acute ischemic infarction of left frontal, temporal, and parietal lobes secondary to left internal carotid occlusion. He had a stroke when he was 28 and had a heart attack when he was 38 and has a stent. She denies any history of drug abuse for the patient's. #1 Acute left MCA stroke Involving frontal, parietal, and temporal lobes. Permissive blood pressure control for hypertension. Neurology consultation appreciated. He is currently guarded but stable. Transfer out of ICU (05/27). ST/PT/OT. Plan for rehab. 2. Coronary artery disease EKG/troponin normal. Continue statin, Plavix, and metoprolol. #3 Occluded left carotid artery. MRA showed occlusion of petrous portion of the left internal carotid extending to the level of the middle cerebral artery. He will need vascular surgery consultation as outpatient. #4 Essential hypertension. BP is fair. Continue current medication, titrate antihypertensive. VTE prophylaxis: Lovenox. GI prophylaxis: PPI po. Patient is full code. Disposition: SNF for rehab. Patient is from [place] where his family lives. We will pursue options. Discussed his current condition and future plan with his in detail. Code Visit Inpatient E&M: 80336 Subs Hosp L3
--- NOTE | 2017-05-27 16:00 | PN_ITS ---
Patient Problems: Active and Suspected Problems CVA (cerebral vascular accident) (Acute) Subjective: He is very somnolent this morning. He had some movement of right upper and lower extremities. Objective: - Physical Exam General: Alert, Confused, Disoriented HEENT: Atraumatic, Normocephalic Oral: Moist Mucosa Neck: Supple Lungs: Clear to auscultation Cardiovascular: Regular rate, Regular Rhythm, Normal S1, Normal S2, No murmurs Abdomen: Bowel Sounds Present, Soft, Non Tender, Non-Distended, No Hepato- splenomegaly Extremities: No clubbing, No cyanosis, No edema Skin: No rashes, - - abrasion around knees and right elbow. Musculoskeletal: No Tenderness to Palpation of Joints or Extremities, No Muscle Wasting Lymphatic: No Cervical, Supraclavicular, or Inguinal Adenopathy Neurological: - - Right facial droop, left hemiparesis with 1/5 motor strength upper and lower ext. Psych/Mental Status: Impulsive - Physical Exam Vital Signs Temp Pulse Resp BP Pulse Ox 98 F 67 18 141/99 H 96 05/27/17 12:00 05/27/17 12:00 05/27/17 12:00 05/27/17 12:00 05/27/17 12:00 Oxygen Flow Rate (L/min) 2 Oxygen Delivery Method Room Air Weight: 234 lb 2.095 oz Body Mass Index (BMI) 31.4 Intake and Output for Last 24 Hours 05/25/17 05/26/17 05/27/17 23:59 23:59 23:59 Intake Total 370 / 370 2765 / 2765 2353 / 2353 Output Total 325 / 325 1900 / 1900 2024 / 2024 Balance 45 / 45 865 / 865 328 / 328 Laboratory Tests Past 24 Hrs 05/27/17 05/27/17 04:50 04:50 WBC 14.1 H RBC 4.77 Hgb 15.2 Hct 44.3 MCV 92.9 MCH 31.9 MCHC 34.3 RDW 13.7 RDW Differential 45.6 H Plt Count 223 MPV 9.1 Sodium 140 Potassium 4.1 Chloride 106 Carbon Dioxide 27.0 Anion Gap 7 BUN 15 Creatinine 0.91 Estim Creat Clear Calc 114.88 Est GFR (MDRD) Af Amer 117 Est GFR (MDRD) Non-Af 96 BUN/Creatinine Ratio 16.5 Glucose 113 H Calcium 8.4 L Diagnostic Data Abdomen/Pelvis CT 05/25/17 10:46 IMPRESSION: No acute findings throughout the abdomen and pelvis. Status post appendectomy. Borderline hepatomegaly. Electronically Signed: Les Holland at 11:32 EDT Tel , Service support , Chest X-Ray 05/25/17 10:46 IMPRESSION: Hypoinflated lungs. Lungs are clear. Electronically Signed: Les Holland at 11:34 EDT Tel , Service support , Brain CT 05/25/17 11:37 IMPRESSION: Abnormal CT head scan showing nonenhancing abnormal edema in both temporal lobes, left greater than right, the insular lobes, left greater than right, the left frontal operculum, left greater than right, left subinsular white matter and left retrolenticular white matter. 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 RECOMMENDATION: MRI of the brain with and without contrast and MRA of the head. Electronically Signed: Raza Enciso MD at 13:34 EDT , Service support , Brain MRI 05/25/17 15:34 IMPRESSION: Acute ischemic infarction of the left frontal temporal and parietal lobes secondary to left internal carotid occlusion. MRA recommended for further evaluation. Electronically Signed: Juan Jose Guy MD at 22:20 EDT , Service support , Head MRA 05/25/17 19:11 IMPRESSION: Findings consistent with occlusion of the petrous portion of the left internal carotid extending to the level of the middle cerebral artery. Electronically Signed: Juan Jose Guy MD at 22:23 EDT , Service support , Neck MRA 05/25/17 19:11 IMPRESSION: Occluded left internal carotid just distal to the bifurcation. Electronically Signed: Juan Jose Guy MD at 22:24 EDT , Service support , Medical Necessity - Tobacco Use Smoking Status: Current every day smoker Tobacco Use: Cigarettes Assessment/Plan Active and Suspected Problems CVA (cerebral vascular accident) (Acute) The patient is a 41 year old M who was found in his hotel room after screaming out. Patient was found to be disheveled and confused. Patient had numerous scrapes on his body as well. Patient was brought to the hospital for evaluation. In the emergency room patient was confused and unable to write any history. Patient was noted to have right-sided hemiparesis. Patient had a CTA head that was concerning for herpetic encephalitis. He had MRI / MRA of brain later in the evening, showing acute ischemic infarction of left frontal, temporal, and parietal lobes secondary to left internal carotid occlusion. He had a stroke when he was 28 and had a heart attack when he was 38 and has a stent. She denies any history of drug abuse for the patient's. #1 Acute left MCA stroke Involving frontal, parietal, and temporal lobes. Permissive blood pressure control for hypertension. Neurology consultation appreciated. He is currently guarded but stable. Transfer out of ICU (05/27). ST/PT/OT. Plan for rehab. 2. Coronary artery disease EKG/troponin normal. Continue statin, Plavix, and metoprolol. #3 Occluded left carotid artery. MRA showed occlusion of petrous portion of the left internal carotid extending to the level of the middle cerebral artery. He will need vascular surgery consultation as outpatient. #4 Essential hypertension. BP is fair. Continue current medication, titrate antihypertensive. VTE prophylaxis: Lovenox. GI prophylaxis: PPI po. Patient is full code. Disposition: SNF for rehab. Patient is from [place] where his family lives. We will pursue options. Discussed his current condition and future plan with his in detail. Code Visit Inpatient E&M: 60893 Subs Hosp L3
[2017-05-27] MEDS: QUEtiapine 25 MG Tablet PO (21:35)
[2017-05-28] VITALS (11 sets, daily range): BP systolic 136–161; BP diastolic 78–101; PULSE 73–145; RESP 16–20; TEMP 36.4–37.1; O2SAT 94–99; BMI 31.4
[2017-05-28] MEDS: 0.9% Normal Saline 1,000 ML 125 ML IV ×3 (03:57→22:37)
[2017-05-28 05:46] LABS: Bedside Glucose 127 mg/dL (70-110)
[2017-05-28 09:43] LABS: Hematocrit 45.9 % (40-54); Hemoglobin 15.3 g/dl (13.0-16.5); Mean Corp Hgb Conc 33.3 g/gl (32-36); Mean Corpuscular Hgb 31.4 pg (27.0-32.0); Mean Corpuscular Volume 94.3 fL (80-94); Mean Platelet Vol. 9.4 fl (6.2-12.0); Platelet Count 207 K/mm3 (150-450); RBC Distribution Width CV 13.6 % (11.6-14.6); RBC Distribution Width SD 46.7 fl (35.1-43.9); Red Blood Count 4.87 M/mm3 (4.6-6.2); White Blood Count 11.8 K/mm3 (4.4-11.0)
[2017-05-28 09:44] LABS: Scan Indicated on CBC? Y/N NO
[2017-05-28 09:53] LABS: Anion Gap 5 (5-15); BUN 13 mg/dL (7-18); BUN/Creat Ratio 14.9 RATIO (10-20); Calcium,Total 8.7 mg/dL (8.5-10.1); Chloride 107 mmol/L (98-107); Creatinine, Serum 0.88 mg/dL (0.70-1.30); EST Glomerular Filtration Rate 101 mL/min (>60); Est Glom Filt Rate - Afr Amer 122 mL/min (>60); Glucose 114 mg/dL (74-106); Potassium 3.8 mmol/L (3.5-5.1); Sodium Level 140 mmol/L (136-145)
--- NOTE | 2017-05-28 10:02 | PCM.PROGNOTE ---
Patient Problems: Active and Suspected Problems CVA (cerebral vascular accident) (Acute) Subjective: He is more awake today. still confused. General: Alert, Confused, Disoriented HEENT: Atraumatic, Normocephalic Oral: Moist Mucosa Neck: Supple Lungs: Clear to auscultation Cardiovascular: Regular rate, Regular Rhythm, Normal S1, Normal S2, No murmurs Abdomen: Bowel Sounds Present, Soft, Non Tender, Non-Distended, No Hepato-splenomegaly Extremities: No clubbing, No cyanosis, No edema Skin: No rashes, - - abrasion around knees and right elbow. Musculoskeletal: No Tenderness to Palpation of Joints or Extremities, No Muscle Wasting Lymphatic: No Cervical, Supraclavicular, or Inguinal Adenopathy Neurological: - - Right facial droop, left hemiparesis with 1/5 motor strength lower ext, 0/5 upper extremity. Psych/Mental Status: Impulsive - Physical Exam Vital Signs Temp Pulse Resp BP Pulse Ox 97.5 F L 94 18 152/78 H 94 05/28/17 08:15 05/28/17 08:15 05/28/17 08:15 05/28/17 08:15 05/28/17 08:15 Oxygen Flow Rate (L/min) 2 Oxygen Delivery Method Room Air Weight: 233 lb 14.567 oz Body Mass Index (BMI) 31.4 Intake and Output for Last 24 Hours 05/26/17 05/27/17 05/28/17 23:59 23:59 23:59 Intake Total 2765 / 2765 3360 / 3360 0 / 0 Output Total 1900 / 1900 3275 / 3275 650 / 650 Balance 865 / 865 85 / 85 -650 / -650 Laboratory Tests Past 24 Hrs 05/28/17 05/28/17 09:20 09:20 WBC 11.8 H RBC 4.87 Hgb 15.3 Hct 45.9 MCV 94.3 H MCH 31.4 MCHC 33.3 RDW 13.6 RDW Differential 46.7 H Plt Count 207 MPV 9.4 Sodium 140 Potassium 3.8 Chloride 107 Carbon Dioxide 28.0 Anion Gap 5 BUN 13 Creatinine 0.88 Estim Creat Clear Calc 118.80 Est GFR (MDRD) Af Amer 122 Est GFR (MDRD) Non-Af 101 BUN/Creatinine Ratio 14.9 Glucose 114 H Calcium 8.7 POC Glucose 05/28/17 05:17 POC Glucose 127 H Medical Necessity - Tobacco Use Smoking Status: Current every day smoker Tobacco Use: Cigarettes Assessment/Plan Active and Suspected Problems CVA (cerebral vascular accident) (Acute) The patient is a 41 year old M who was found in his hotel room after screaming out. Patient was found to be disheveled and confused. Patient had numerous scrapes on his body as well. Patient was brought to the hospital for evaluation. In the emergency room patient was confused and unable to write any history. Patient was noted to have right-sided hemiparesis. Patient had a CTA head that was concerning for herpetic encephalitis. He had MRI / MRA of brain later in the evening, showing acute ischemic infarction of left frontal, temporal, and parietal lobes secondary to left internal carotid occlusion. He had a stroke when he was 28 and had a heart attack when he was 38 and has a stent. She denies any history of drug abuse for the patient's. #1 Acute left MCA stroke Initial CTA showed bilateral cerebral edema, concerning of herpetic encephalitis. Subsequently he had MRI. MRI showed infarction in left MCA distribution, involving frontal, parietal, and temporal lobes. Permissive blood pressure control for hypertension initially. Neurology consultation appreciated. He is currently guarded but stable. Transfer out of ICU (05/27). ST/PT/OT. Plan for rehab. 2. Coronary artery disease EKG/troponin normal. Continue statin, Plavix, and metoprolol. #3 Occluded left carotid artery. MRA showed occlusion of petrous portion of the left internal carotid extending to the level of the middle cerebral artery. He will need vascular surgery consultation as outpatient. #4 Essential hypertension. BP is fair. Continue current medication, titrate antihypertensive. VTE prophylaxis: Lovenox. GI prophylaxis: PPI po. Patient is full code. Disposition: SNF for rehab. Patient is from [place] where his family lives. We will pursue options. Discussed his current condition and future plan with his in detail. Code Visit Inpatient E&M: 75923 Subs Hosp L2
[2017-05-28] MEDS: Clopidogrel Bisulfate 75 MG Tablet PO (10:05)
[2017-05-28] MEDS: Enoxaparin 40 MG/0.4 ML Syringe SC (10:06)
[2017-05-28] MEDS: Aspirin E.C. 81 MG Tablet PO (10:21)
--- NOTE | 2017-05-28 18:58 | NURSING ---
Reviewed and agreed on all charting with Adriel An RN
[2017-05-28] MEDS: QUEtiapine 25 MG Tablet PO (21:36)
[2017-05-29] VITALS (13 sets, daily range): BP systolic 107–152; BP diastolic 64–99; PULSE 73–125; RESP 16–20; TEMP 36.4–37.6; O2SAT 92–95; BMI 31.4
[2017-05-29 06:34] LABS: Hemoglobin 15.7 g/dl (13.0-16.5); Mean Corp Hgb Conc 34.1 g/gl (32-36); Mean Corpuscular Hgb 31.8 pg (27.0-32.0); Mean Corpuscular Volume 93.3 fL (80-94); Mean Platelet Vol. 9.4 fl (6.2-12.0); Platelet Count 238 K/mm3 (150-450); RBC Distribution Width CV 13.5 % (11.6-14.6); RBC Distribution Width SD 44.8 fl (35.1-43.9); Red Blood Count 4.93 M/mm3 (4.6-6.2); White Blood Count 10.2 K/mm3 (4.4-11.0)
[2017-05-29 06:37] LABS: Scan Indicated on CBC? Y/N NO
[2017-05-29] MEDS: 0.9% Normal Saline 1,000 ML 125 ML IV ×2 (06:48→16:20)
[2017-05-29 06:50] LABS: Anion Gap 7 (5-15); BUN 12 mg/dL (7-18); BUN/Creat Ratio 14.9 RATIO (10-20); Calcium,Total 8.9 mg/dL (8.5-10.1); Chloride 105 mmol/L (98-107); EST Glomerular Filtration Rate 111 mL/min (>60); Est Glom Filt Rate - Afr Amer 135 mL/min (>60); Estimated Creatinine Clearance 130.68 ml/min; Glucose 99 mg/dL (74-106); Potassium 3.8 mmol/L (3.5-5.1); Sodium Level 139 mmol/L (136-145)
[2017-05-29] MEDS: Clopidogrel Bisulfate 75 MG Tablet PO (09:48)
[2017-05-29] MEDS: Aspirin E.C. 81 MG Tablet PO (09:48)
[2017-05-29] MEDS: Enoxaparin 40 MG/0.4 ML Syringe SC (09:49)
--- NOTE | 2017-05-29 18:50 | NURSING ---
Reviewed and agreed on all charting with Adriel An RN
--- NOTE | 2017-05-29 19:22 | PCM.PROGNOTE ---
Patient Problems: Active and Suspected Problems CVA (cerebral vascular accident) (Acute) Subjective: He is awake, alert. Answers questions, but he is disoriented. General: Alert, Confused, Disoriented HEENT: Atraumatic, Normocephalic Oral: Moist Mucosa Neck: Supple Lungs: Clear to auscultation Cardiovascular: Regular rate, Regular Rhythm, Normal S1, Normal S2, No murmurs Abdomen: Bowel Sounds Present, Soft, Non Tender, Non-Distended, No Hepato-splenomegaly Extremities: No clubbing, No cyanosis, No edema Skin: No rashes, - - abrasion around knees and right elbow. Musculoskeletal: No Tenderness to Palpation of Joints or Extremities, No Muscle Wasting Lymphatic: No Cervical, Supraclavicular, or Inguinal Adenopathy Neurological: - - Right facial droop, left hemiparesis with 1/5 motor strength lower ext, 0/5 upper extremity. Psych/Mental Status: Impulsive - Physical Exam Vital Signs Temp Pulse Resp BP Pulse Ox 99.7 F H 101 H 18 131/93 H 94 05/29/17 16:00 05/29/17 16:00 05/29/17 16:00 05/29/17 16:00 05/29/17 16:00 Oxygen Flow Rate (L/min) 2 Oxygen Delivery Method Room Air Weight: 231 lb 11.293 oz Body Mass Index (BMI) 31.4 Intake and Output for Last 24 Hours 05/27/17 05/28/17 05/29/17 23:59 23:59 23:59 Intake Total 3360 / 3360 1993 / 1993 3735 / 3735 Output Total 3275 / 3275 1650 / 1650 1300 / 1300 Balance 85 / 85 344 / 344 2435 / 2435 Laboratory Tests Past 24 Hrs 05/29/17 05/29/17 05:35 05:35 WBC 10.2 RBC 4.93 Hgb 15.7 Hct 46.0 MCV 93.3 MCH 31.8 MCHC 34.1 RDW 13.5 RDW Differential 44.8 H Plt Count 238 MPV 9.4 Sodium 139 Potassium 3.8 Chloride 105 Carbon Dioxide 27.0 Anion Gap 7 BUN 12 Creatinine 0.80 Estim Creat Clear Calc 130.68 Est GFR (MDRD) Af Amer 135 Est GFR (MDRD) Non-Af 111 BUN/Creatinine Ratio 14.9 Glucose 99 Calcium 8.9 Diagnostic Data Abdomen/Pelvis CT 05/25/17 10:46 IMPRESSION: No acute findings throughout the abdomen and pelvis. Status post appendectomy. Borderline hepatomegaly. Electronically Signed: Les Holland at 11:32 EDT Tel , Service support , Chest X-Ray 05/25/17 10:46 IMPRESSION: Hypoinflated lungs. Lungs are clear. Electronically Signed: Les HollandDO at 11:34 EDT Tel , Service support , Brain CT 05/25/17 11:37 IMPRESSION: Abnormal CT head scan showing nonenhancing abnormal edema in both temporal lobes, left greater than right, the insular lobes, left greater than right, the left frontal operculum, left greater than right, left subinsular white matter and left retrolenticular white matter. 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 RECOMMENDATION: MRI of the brain with and without contrast and MRA of the head. Electronically Signed: Raza Enciso MD at 13:34 EDT , Service support , Brain MRI 05/25/17 15:34 IMPRESSION: Acute ischemic infarction of the left frontal temporal and parietal lobes secondary to left internal carotid occlusion. MRA recommended for further evaluation. Electronically Signed: Juan Jose Guy MD at 22:20 EDT , Service support , Head MRA 05/25/17 19:11 IMPRESSION: Findings consistent with occlusion of the petrous portion of the left internal carotid extending to the level of the middle cerebral artery. Electronically Signed: Juan Jose Guy MD at 22:23 EDT , Service support , Neck MRA 05/25/17 19:11 IMPRESSION: Occluded left internal carotid just distal to the bifurcation. Electronically Signed: Juan Jose Guy MD at 22:24 EDT , Service support , Medical Necessity - Tobacco Use Smoking Status: Current every day smoker Tobacco Use: Cigarettes Assessment/Plan Active and Suspected Problems CVA (cerebral vascular accident) (Acute) The patient is a 41 year old M who was found in his hotel room after screaming out. Patient was found to be disheveled and confused. Patient had numerous scrapes on his body as well. Patient was brought to the hospital for evaluation. In the emergency room patient was confused and unable to write any history. Patient was noted to have right-sided hemiparesis. Patient had a CTA head that was concerning for herpetic encephalitis. He had MRI / MRA of brain later in the evening, showing acute ischemic infarction of left frontal, temporal, and parietal lobes secondary to left internal carotid occlusion. He had a stroke when he was 28 and had a heart attack when he was 38 and has a stent. She denies any history of drug abuse for the patient's. #1 Acute left MCA stroke Initial CTA showed bilateral cerebral edema, concerning of herpetic encephalitis. Subsequently he had MRI. MRI showed infarction in left MCA distribution, involving frontal, parietal, and temporal lobes. Permissive blood pressure control for hypertension initially. Neurology consultation appreciated. He is currently guarded but stable. Transfer out of ICU (05/27). ST/PT/OT. Plan for inpatient rehab. He is doing about the same, but he is more awake. 2. Coronary artery disease EKG/troponin normal. Continue statin, Plavix, and metoprolol. #3 Occluded left carotid artery. MRA showed occlusion of petrous portion of the left internal carotid extending to the level of the middle cerebral artery. He will need vascular surgery consultation as outpatient. #4 Essential hypertension. BP is fair. Continue current medication, titrate antihypertensive. VTE prophylaxis: Lovenox. GI prophylaxis: PPI po. Patient is full code. Disposition: SNF for rehab. Patient is from [place] where his family lives. We will pursue options. Discussed his current condition and future plan with his in detail. Code Visit Inpatient E&M: 55607 Subs Hosp L2
--- NOTE | 2017-05-29 19:25 | PN_ITS ---
Patient Problems: Active and Suspected Problems CVA (cerebral vascular accident) (Acute) Subjective: He is awake, alert. Answers questions, but he is disoriented. General: Alert, Confused, Disoriented HEENT: Atraumatic, Normocephalic Oral: Moist Mucosa Neck: Supple Lungs: Clear to auscultation Cardiovascular: Regular rate, Regular Rhythm, Normal S1, Normal S2, No murmurs Abdomen: Bowel Sounds Present, Soft, Non Tender, Non-Distended, No Hepato- splenomegaly Extremities: No clubbing, No cyanosis, No edema Skin: No rashes, - - abrasion around knees and right elbow. Musculoskeletal: No Tenderness to Palpation of Joints or Extremities, No Muscle Wasting Lymphatic: No Cervical, Supraclavicular, or Inguinal Adenopathy Neurological: - - Right facial droop, left hemiparesis with 1/5 motor strength lower ext, 0/5 upper extremity. Psych/Mental Status: Impulsive - Physical Exam Vital Signs Temp Pulse Resp BP Pulse Ox 99.7 F H 101 H 18 131/93 H 94 05/29/17 16:00 05/29/17 16:00 05/29/17 16:00 05/29/17 16:00 05/29/17 16:00 Oxygen Flow Rate (L/min) 2 Oxygen Delivery Method Room Air Weight: 231 lb 11.293 oz Body Mass Index (BMI) 31.4 Intake and Output for Last 24 Hours 05/27/17 05/28/17 05/29/17 23:59 23:59 23:59 Intake Total 3360 / 3360 1993 / 1993 3735 / 3735 Output Total 3275 / 3275 1650 / 1650 1300 / 1300 Balance 85 / 85 344 / 344 2435 / 2435 Laboratory Tests Past 24 Hrs 05/29/17 05/29/17 05:35 05:35 WBC 10.2 RBC 4.93 Hgb 15.7 Hct 46.0 MCV 93.3 MCH 31.8 MCHC 34.1 RDW 13.5 RDW Differential 44.8 H Plt Count 238 MPV 9.4 Sodium 139 Potassium 3.8 Chloride 105 Carbon Dioxide 27.0 Anion Gap 7 BUN 12 Creatinine 0.80 Estim Creat Clear Calc 130.68 Est GFR (MDRD) Af Amer 135 Est GFR (MDRD) Non-Af 111 BUN/Creatinine Ratio 14.9 Glucose 99 Calcium 8.9 Diagnostic Data Abdomen/Pelvis CT 05/25/17 10:46 IMPRESSION: No acute findings throughout the abdomen and pelvis. Status post appendectomy. Borderline hepatomegaly. Electronically Signed: Les Holland at 11:32 EDT Tel , Service support , Chest X-Ray 05/25/17 10:46 IMPRESSION: Hypoinflated lungs. Lungs are clear. Electronically Signed: Les HollandDO at 11:34 EDT Tel , Service support , Brain CT 05/25/17 11:37 IMPRESSION: Abnormal CT head scan showing nonenhancing abnormal edema in both temporal lobes, left greater than right, the insular lobes, left greater than right, the left frontal operculum, left greater than right, left subinsular white matter and left retrolenticular white matter. 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 RECOMMENDATION: MRI of the brain with and without contrast and MRA of the head. Electronically Signed: Raza Enciso MD at 13:34 EDT , Service support , Brain MRI 05/25/17 15:34 IMPRESSION: Acute ischemic infarction of the left frontal temporal and parietal lobes secondary to left internal carotid occlusion. MRA recommended for further evaluation. Electronically Signed: Juan Jose Guy MD at 22:20 EDT , Service support , Head MRA 05/25/17 19:11 IMPRESSION: Findings consistent with occlusion of the petrous portion of the left internal carotid extending to the level of the middle cerebral artery. Electronically Signed: Juan Jose Guy MD at 22:23 EDT , Service support , Neck MRA 05/25/17 19:11 IMPRESSION: Occluded left internal carotid just distal to the bifurcation. Electronically Signed: Juan Jose Guy MD at 22:24 EDT , Service support , Medical Necessity - Tobacco Use Smoking Status: Current every day smoker Tobacco Use: Cigarettes Assessment/Plan Active and Suspected Problems CVA (cerebral vascular accident) (Acute) The patient is a 41 year old M who was found in his hotel room after screaming out. Patient was found to be disheveled and confused. Patient had numerous scrapes on his body as well. Patient was brought to the hospital for evaluation. In the emergency room patient was confused and unable to write any history. Patient was noted to have right-sided hemiparesis. Patient had a CTA head that was concerning for herpetic encephalitis. He had MRI / MRA of brain later in the evening, showing acute ischemic infarction of left frontal, temporal, and parietal lobes secondary to left internal carotid occlusion. He had a stroke when he was 28 and had a heart attack when he was 38 and has a stent. She denies any history of drug abuse for the patient's. #1 Acute left MCA stroke Initial CTA showed bilateral cerebral edema, concerning of herpetic encephalitis. Subsequently he had MRI. MRI showed infarction in left MCA distribution, involving frontal, parietal, and temporal lobes. Permissive blood pressure control for hypertension initially. Neurology consultation appreciated. He is currently guarded but stable. Transfer out of ICU (05/27). ST/PT/OT. Plan for inpatient rehab. He is doing about the same, but he is more awake. 2. Coronary artery disease EKG/troponin normal. Continue statin, Plavix, and metoprolol. #3 Occluded left carotid artery. MRA showed occlusion of petrous portion of the left internal carotid extending to the level of the middle cerebral artery. He will need vascular surgery consultation as outpatient. #4 Essential hypertension. BP is fair. Continue current medication, titrate antihypertensive. VTE prophylaxis: Lovenox. GI prophylaxis: PPI po. Patient is full code. Disposition: SNF for rehab. Patient is from [place] where his family lives. We will pursue options. Discussed his current condition and future plan with his in detail. Code Visit Inpatient E&M: 08916 Subs Hosp L2
[2017-05-29] MEDS: 0.9% NaCl Peripheral Flush Adult/Peds IV (21:52)
[2017-05-29] MEDS: QUEtiapine 25 MG Tablet PO (21:52)
[2017-05-29] MEDS: Acetaminophen 325 MG Tablet 650 MG PO (21:52)
[2017-05-30] VITALS (9 sets, daily range): BP systolic 110–156; BP diastolic 73–93; PULSE 56–101; RESP 14–20; TEMP 36.7–36.9; O2SAT 94–96; BMI 31.4
[2017-05-30] MEDS: 0.9% Normal Saline 1,000 ML 125 ML IV ×2 (02:11→10:33)
[2017-05-30 06:31] LABS: Hematocrit 45.8 % (40-54); Hemoglobin 15.8 g/dl (13.0-16.5); Mean Corp Hgb Conc 34.5 g/gl (32-36); Mean Corpuscular Hgb 32.4 pg (27.0-32.0); Mean Corpuscular Volume 93.9 fL (80-94); Mean Platelet Vol. 9.1 fl (6.2-12.0); Platelet Count 264 K/mm3 (150-450); RBC Distribution Width CV 13.4 % (11.6-14.6); RBC Distribution Width SD 44.4 fl (35.1-43.9); Red Blood Count 4.88 M/mm3 (4.6-6.2); White Blood Count 13.4 K/mm3 (4.4-11.0)
[2017-05-30 06:34] LABS: Scan Indicated on CBC? Y/N NO
[2017-05-30 06:46] LABS: Anion Gap 7 (5-15); BUN 20 mg/dL (7-18); Calcium,Total 8.6 mg/dL (8.5-10.1); Chloride 105 mmol/L (98-107); EST Glomerular Filtration Rate 87 mL/min (>60); Est Glom Filt Rate - Afr Amer 105 mL/min (>60); Estimated Creatinine Clearance 104.54 ml/min; Glucose 117 mg/dL (74-106); Potassium 4.6 mmol/L (3.5-5.1); Sodium Level 139 mmol/L (136-145)
[2017-05-30] MEDS: Clopidogrel Bisulfate 75 MG Tablet PO (08:28)
[2017-05-30] MEDS: Aspirin E.C. 81 MG Tablet PO (08:28)
[2017-05-30] MEDS: Enoxaparin 40 MG/0.4 ML Syringe SC (08:28)
--- NOTE | 2017-05-30 10:20 | CASEMGMT ---
SW spoke with patient's and let her know that the physician is not comfortable with patient traveling right now. She was okay with patient going to rehab here at [facility] until he is able to travel. RICKY spoke with Jenae in the rehab unit. She would like to make sure he could do the 3 hours of therapy. She will look at the notes from today. SW to follow and assist with d/c planning. Plan: Hopefully [facility] 4th floor rehab unit pending approval. Karlie MAYBERRY MSW
--- NOTE | 2017-05-30 10:59 | PCM.PN.NEU ---
Patient Problems: Active and Suspected Problems CVA (cerebral vascular accident) (Acute) Subjective: Patient's is present. She is concerned about rehab. They live in [place] and she has questions about travel which he clearly cannot travel at this point and would require medical transfer. Objective: Is currently sleeping. - Physical Exam Vital Signs Temp Pulse Resp BP Pulse Ox 36.8 C 87 16 156/93 H 96 05/30/17 08:24 05/30/17 08:24 05/30/17 08:24 05/30/17 08:24 05/30/17 08:24 Oxygen Flow Rate (L/min) 2 Oxygen Delivery Method Room Air Weight: 104.5 kg Body Mass Index (BMI) 31.4 Intake and Output for Last 24 Hours 05/28/17 05/29/17 05/30/17 23:59 23:59 23:59 Intake Total 1993 / 1993 4330 / 4330 742 / 742 Output Total 1650 / 1650 1475 / 1475 200 / 200 Balance 344 / 344 2855 / 2855 542 / 542 Laboratory Tests Past 24 Hrs 05/30/17 05/30/17 05:50 05:50 WBC 13.4 H RBC 4.88 Hgb 15.8 Hct 45.8 MCV 93.9 MCH 32.4 H MCHC 34.5 RDW 13.4 RDW Differential 44.4 H Plt Count 264 MPV 9.1 Sodium 139 Potassium 4.6 Chloride 105 Carbon Dioxide 27.0 Anion Gap 7 BUN 20 H Creatinine 1.00 Estim Creat Clear Calc 104.54 Est GFR (MDRD) Af Amer 105 Est GFR (MDRD) Non-Af 87 BUN/Creatinine Ratio 20.0 Glucose 117 H Calcium 8.6 Current Medications Generic Name Dose Route Start Last Admin Trade Name Freq PRN Reason Stop Dose Admin Acetaminophen 650 mg 05/25/17 15:34 05/29/17 21:52 Tylenol PO 650 mg Q4H PRN PRN Administration Headache/Temp>99F Acetaminophen 650 mg 05/25/17 15:34 Tylenol RECTAL Q4H PRN PRN Headache/Temp>99F Acetaminophen 650 mg 05/25/17 15:34 Tylenol Liquid NG Q4H PRN PRN Headache/Temp>99F Aspirin 81 mg 05/29/17 08:00 05/30/17 08:28 Ecotrin PO 81 mg DAILY@0800 YESENIA Administration Atorvastatin Calcium 80 mg 05/30/17 22:00 Lipitor PO QHS YESENIA Clopidogrel Bisulfate 75 mg 05/26/17 10:00 05/30/17 08:28 Plavix PO 75 mg DAILY YESENIA Administration Enoxaparin Sodium 40 mg 05/25/17 23:15 05/30/17 08:28 Lovenox SC 40 mg DAILY@1000 YESENIA Administration Sodium Chloride 1,000 mls @ 125 mls/hr 05/25/17 15:34 05/30/17 10:33 IV 125 mls/hr .Q8H YESENIA Administration Sodium Chloride 250 mls @ 15 mls/hr 05/25/17 16:43 IV .[id number] PRN SALINE FLUSH Sodium Chloride 250 mls @ 15 mls/hr 05/25/17 16:44 IV .[id number] PRN SALINE FLUSH Lorazepam 2 mg 05/28/17 05:37 Ativan PO Q2H PRN PRN CIWA score > 8 but <15 Protocol Lorazepam 2 mg 05/28/17 05:37 Ativan PO UD PRN CIWA score >/=15. Protocol Lorazepam 2 mg 05/28/17 05:37 Ativan IV Q2H PRN PRN CIWA score > 8 but <15 Protocol Lorazepam 2 mg 05/28/17 05:37 Ativan IV UD PRN CIWA score >/=15. Protocol Magnesium Hydroxide 30 ml 05/25/17 15:34 Milk Of Magnesia PO DAILY PRN PRN Constipation Quetiapine Fumarate 25 mg 05/27/17 22:00 05/29/17 21:52 Seroquel PO 25 mg QHS YESENIA Administration Sodium Chloride 5 - 30 ml 05/25/17 16:43 05/29/17 21:52 IV 20 ml UD PRN Administration SALINE FLUSH Medical Necessity - Tobacco Use Smoking Status: Current every day smoker Tobacco Use: Cigarettes Assessment/Plan Active and Suspected Problems CVA (cerebral vascular accident) (Acute) Acute 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 Debility includes right hemiparesis and neglect as well as hemianopsia and receptive aphasia. Plan: Initiate therapies Permissive hypertension IN ASA for now, restart Plavix when able Statin therapy Consider rehab Repeat scans as needed
--- NOTE | 2017-05-30 14:53 | PCM.PN.HOSP ---
Patient Problems: Active and Suspected Problems CVA (cerebral vascular accident) (Acute) Subjective: Denies any new complaints. Vitals/I&O's: Vital Signs Temp Pulse Resp BP Pulse Ox 36.9 C 56 L 16 140/86 H 94 05/30/17 14:19 05/30/17 14:19 05/30/17 14:19 05/30/17 14:19 05/30/17 14:19 Oxygen Flow Rate (L/min) 2 Oxygen Delivery Method Room Air Weight: 104.5 kg Body Mass Index (BMI) 31.4 Intake and Output for Last 24 Hours 05/28/17 05/29/17 05/30/17 23:59 23:59 23:59 Intake Total 1993 4330 / 4330 1492 / 1492 Output Total 1650 / 1650 1475 / 1475 600 / 600 Balance 344 / 344 2855 / 2855 892 / 892 General: Alert HEENT: Atraumatic, Normocephalic Oral: Moist Mucosa, No Gingival or Mucosal Lesions/ Ulcerations Neck: No Nodes, Thyroid Normal Size and Texture Lungs: Clear to auscultation, Normal air movement, No rhonchi, No wheeze Cardiovascular: Regular rate, Regular Rhythm, Normal S1, Normal S2, No murmurs Abdomen: Bowel Sounds Present, Soft, Non Tender, Non-Distended, No Hepato-splenomegaly Extremities: No edema, No Calf Tenderness Skin: No rashes, No breakdown Musculoskeletal: No Tenderness to Palpation of Joints or Extremities, No Muscle Wasting Neurological: - - Right facial droop. Muscle strength 5 out of 5 in left upper and left lower extremity. 05 in the right upper and right lower extremity. Psych/Mental Status: Flat Affect Laboratory Results 05/30/17 05:50: WBC 13.4 H, RBC 4.88, Hgb 15.8, Hct 45.8, MCV 93.9, MCH 32.4 H, MCHC 34.5, RDW 13.4, RDW Differential 44.4 H, Plt Count 264, MPV 9.1 05/30/17 05:50: Sodium 139, Potassium 4.6, Chloride 105, Carbon Dioxide 27.0, Anion Gap 7, BUN 20 H, Creatinine 1.00, Estim Creat Clear Calc 104.54, Est GFR (MDRD) Af Amer 105, Est GFR (MDRD) Non-Af 87, BUN/Creatinine Ratio 20.0, Glucose 117 H, Calcium 8.6 Current Medications Acetaminophen (Tylenol) 650 mg PO Q4H PRN PRN PRN Reason: Headache/Temp>99F Last Admin: 05/29/17 21:52 Dose: 650 mg Acetaminophen (Tylenol) 650 mg RECTAL Q4H PRN PRN PRN Reason: Headache/Temp>99F Acetaminophen (Tylenol Liquid) 650 mg NG Q4H PRN PRN PRN Reason: Headache/Temp>99F Aspirin (Ecotrin) 81 mg PO DAILY@0800 [facility] Last Admin: 05/30/17 08:28 Dose: 81 mg Atorvastatin Calcium (Lipitor) 80 mg PO QHS [facility] Clopidogrel Bisulfate (Plavix) 75 mg PO DAILY [facility] Last Admin: 05/30/17 08:28 Dose: 75 mg Enoxaparin Sodium (Lovenox) 40 mg SC DAILY@1000 [facility] Last Admin: 05/30/17 08:28 Dose: 40 mg Sodium Chloride () 1,000 mls @ 125 mls/hr IV .Q8H [facility] Last Admin: 05/30/17 10:33 Dose: 125 mls/hr Sodium Chloride () 250 mls @ 15 mls/hr IV .[id number] PRN PRN Reason: SALINE FLUSH Sodium Chloride () 250 mls @ 15 mls/hr IV .[id number] PRN PRN Reason: SALINE FLUSH Lorazepam (Ativan) 2 mg PO Q2H PRN PRN; Protocol PRN Reason: CIWA score > 8 but <15 Lorazepam (Ativan) 2 mg PO UD PRN; Protocol PRN Reason: CIWA score >/=15. Lorazepam (Ativan) 2 mg IV Q2H PRN PRN; Protocol PRN Reason: CIWA score > 8 but <15 Lorazepam (Ativan) 2 mg IV UD PRN; Protocol PRN Reason: CIWA score >/=15. Magnesium Hydroxide (Milk Of Magnesia) 30 ml PO DAILY PRN PRN PRN Reason: Constipation Quetiapine Fumarate (Seroquel) 25 mg PO QHS [facility] Last Admin: 05/29/17 21:52 Dose: 25 mg Sodium Chloride () 5 - 30 ml IV UD PRN PRN Reason: SALINE FLUSH Last Admin: 05/29/17 21:52 Dose: 20 ml Medical Necessity - Tobacco Use Smoking Status: Current every day smoker Tobacco Use: Cigarettes Assessment/Plan Active and Suspected Problems CVA (cerebral vascular accident) (Acute) 1. Acute left MCA stroke This is per Dr. Milian's interpretation. Given patient's history certainly is concerning as well. Confirmed stroke on MRI with an acute stroke to the left frontal temporal and parietal lobes secondary to left internal carotid occlusion Continue aspirin and Plavix Unknown time of onset as patient was noted to be confused today therefore unfortunate on the window for TPA. Patient will require rehab upon discharge. Given the patient's acute stroke, is feeling by neurology that the patient should not travel back to [place]. Currently awaiting precertification for the patient to go to the inpatient rehab unit here. . he will be n.p.o. until he passes a bedside swallow evaluation. Echocardiogram showed ejection fraction of 65% but no shunt was visualized. 2. Coronary artery disease No ischemic changes on EKG Continue with Plavix and metoprolol. 3. DVT prophylaxis with Lovenox Code Visit Inpatient E&M: 59557 Subs Hosp L3
--- NOTE | 2017-05-30 14:56 | PN_ITS ---
Patient Problems: Active and Suspected Problems CVA (cerebral vascular accident) (Acute) Subjective: Denies any new complaints. Vitals/I&O's: Vital Signs Temp Pulse Resp BP Pulse Ox 36.9 C 56 L 16 140/86 H 94 05/30/17 14:19 05/30/17 14:19 05/30/17 14:19 05/30/17 14:19 05/30/17 14:19 Oxygen Flow Rate (L/min) 2 Oxygen Delivery Method Room Air Weight: 104.5 kg Body Mass Index (BMI) 31.4 Intake and Output for Last 24 Hours 05/28/17 05/29/17 05/30/17 23:59 23:59 23:59 Intake Total 1993 4330 / 4330 1492 / 1492 Output Total 1650 / 1650 1475 / 1475 600 / 600 Balance 344 / 344 2855 / 2855 892 / 892 General: Alert HEENT: Atraumatic, Normocephalic Oral: Moist Mucosa, No Gingival or Mucosal Lesions/ Ulcerations Neck: No Nodes, Thyroid Normal Size and Texture Lungs: Clear to auscultation, Normal air movement, No rhonchi, No wheeze Cardiovascular: Regular rate, Regular Rhythm, Normal S1, Normal S2, No murmurs Abdomen: Bowel Sounds Present, Soft, Non Tender, Non-Distended, No Hepato- splenomegaly Extremities: No edema, No Calf Tenderness Skin: No rashes, No breakdown Musculoskeletal: No Tenderness to Palpation of Joints or Extremities, No Muscle Wasting Neurological: - - Right facial droop. Muscle strength 5 out of 5 in left upper and left lower extremity. 05 in the right upper and right lower extremity. Psych/Mental Status: Flat Affect Laboratory Results 05/30/17 05:50: WBC 13.4 H, RBC 4.88, Hgb 15.8, Hct 45.8, MCV 93.9, MCH 32.4 H, MCHC 34.5, RDW 13.4, RDW Differential 44.4 H, Plt Count 264, MPV 9.1 05/30/17 05:50: Sodium 139, Potassium 4.6, Chloride 105, Carbon Dioxide 27.0, Anion Gap 7, BUN 20 H, Creatinine 1.00, Estim Creat Clear Calc 104.54, Est GFR ( MDRD) Af Amer 105, Est GFR (MDRD) Non-Af 87, BUN/Creatinine Ratio 20.0, Glucose 117 H, Calcium 8.6 Current Medications Acetaminophen (Tylenol) 650 mg PO Q4H PRN PRN PRN Reason: Headache/Temp>99F Last Admin: 05/29/17 21:52 Dose: 650 mg Acetaminophen (Tylenol) 650 mg RECTAL Q4H PRN PRN PRN Reason: Headache/Temp>99F Acetaminophen (Tylenol Liquid) 650 mg NG Q4H PRN PRN PRN Reason: Headache/Temp>99F Aspirin (Ecotrin) 81 mg PO DAILY@0800 [facility] Last Admin: 05/30/17 08:28 Dose: 81 mg Atorvastatin Calcium (Lipitor) 80 mg PO QHS [facility] Clopidogrel Bisulfate (Plavix) 75 mg PO DAILY [facility] Last Admin: 05/30/17 08:28 Dose: 75 mg Enoxaparin Sodium (Lovenox) 40 mg SC DAILY@1000 [facility] Last Admin: 05/30/17 08:28 Dose: 40 mg Sodium Chloride () 1,000 mls @ 125 mls/hr IV .Q8H [facility] Last Admin: 05/30/17 10:33 Dose: 125 mls/hr Sodium Chloride () 250 mls @ 15 mls/hr IV .[id number] PRN PRN Reason: SALINE FLUSH Sodium Chloride () 250 mls @ 15 mls/hr IV .[id number] PRN PRN Reason: SALINE FLUSH Lorazepam (Ativan) 2 mg PO Q2H PRN PRN; Protocol PRN Reason: CIWA score > 8 but <15 Lorazepam (Ativan) 2 mg PO UD PRN; Protocol PRN Reason: CIWA score >/=15. Lorazepam (Ativan) 2 mg IV Q2H PRN PRN; Protocol PRN Reason: CIWA score > 8 but <15 Lorazepam (Ativan) 2 mg IV UD PRN; Protocol PRN Reason: CIWA score >/=15. Magnesium Hydroxide (Milk Of Magnesia) 30 ml PO DAILY PRN PRN PRN Reason: Constipation Quetiapine Fumarate (Seroquel) 25 mg PO QHS [facility] Last Admin: 05/29/17 21:52 Dose: 25 mg Sodium Chloride () 5 - 30 ml IV UD PRN PRN Reason: SALINE FLUSH Last Admin: 05/29/17 21:52 Dose: 20 ml Medical Necessity - Tobacco Use Smoking Status: Current every day smoker Tobacco Use: Cigarettes Assessment/Plan Active and Suspected Problems CVA (cerebral vascular accident) (Acute) 1. Acute left MCA stroke * This is per Dr. Milian's interpretation. Given patient's history certainly is concerning as well. * Confirmed stroke on MRI with an acute stroke to the left frontal temporal and parietal lobes secondary to left internal carotid occlusion * Continue aspirin and Plavix * Unknown time of onset as patient was noted to be confused today therefore unfortunate on the window for TPA. * Patient will require rehab upon discharge. Given the patient's acute stroke, is feeling by neurology that the patient should not travel back to [place]. Currently awaiting precertification for the patient to go to the inpatient rehab unit here. . * he will be n.p.o. until he passes a bedside swallow evaluation. * Echocardiogram showed ejection fraction of 65% but no shunt was visualized. 2. Coronary artery disease * No ischemic changes on EKG * Continue with Plavix and metoprolol. 3. DVT prophylaxis with Lovenox Code Visit Inpatient E&M: 39507 Subs Hosp L3
[2017-05-30] MEDS: QUEtiapine 25 MG Tablet PO (22:13)
[2017-05-30] MEDS: Atorvastatin Calcium 80 MG Tablet PO (22:13)
[2017-05-31 04:10] VITALS: BP 137/85; PULSE 104; RESP 20; TEMP 36.8; O2SAT 95
[2017-05-31 09:20] VITALS: BP 129/86; PULSE 110; RESP 14; TEMP 36.6; O2SAT 96
[2017-05-31] MEDS: Aspirin E.C. 81 MG Tablet PO (09:21)
[2017-05-31] MEDS: Clopidogrel Bisulfate 75 MG Tablet PO (09:21)
[2017-05-31] MEDS: Enoxaparin 40 MG/0.4 ML Syringe SC (09:22)
--- NOTE | 2017-05-31 10:45 | CASEMGMT ---
Addendum entered by Karlie Paiz 05/31/17 14:36: Jenae called and said she received authorization for patient. RICKY called patient's and let her know that patient was approved for the rehab unit and he will be going today. She thanked RICKY for the update. Plan: [facility] 4th floor rehab unit. Karlie SON Original Note: Addendum entered by Karlie Paiz 05/31/17 12:30: Waiting on insurance to let Jenae in rehab know they approved patient and give her the authorization number. Karlie SON Original Note: Addendum entered by Karlie Paiz 05/31/17 10:59: Insurance has overturned their decision and they have approved patient for the Inpatient Rehab at [facility]. RICKY called Jenae and let her know. Plan: [facility] 4th floor rehab unit Karlie SON Original Note: Patient has been denied for inpatient rehab. Dr Barrow is doing a peer to peer review. Karlie SON
--- NOTE | 2017-05-31 12:33 | PN_ITS ---
Patient Problems: Active and Suspected Problems CVA (cerebral vascular accident) (Acute) Subjective: stIll with right sided hemiparesis. Able to engage in 25 minutes of therapy. Vitals/I&O's: Vital Signs Temp Pulse Resp BP Pulse Ox 36.6 C 110 H 14 129/86 H 96 05/31/17 09:20 05/31/17 09:20 05/31/17 09:20 05/31/17 09:20 05/31/17 09:20 Oxygen Flow Rate (L/min) 2 Oxygen Delivery Method Room Air Weight: 102 kg Body Mass Index (BMI) 31.4 Intake and Output for Last 24 Hours 05/29/17 05/30/17 05/31/17 23:59 23:59 23:59 Intake Total 4330 / 4330 1622 / 1622 120 / 120 Output Total 1475 / 1475 1075 / 1075 875 / 875 Balance 2855 / 2855 547 / 547 -755 / -755 General: Alert, No apparent distress HEENT: Atraumatic, Normocephalic Psych/Mental Status: Flat Affect Current Medications Acetaminophen (Tylenol) 650 mg PO Q4H PRN PRN PRN Reason: Headache/Temp>99F Last Admin: 05/29/17 21:52 Dose: 650 mg Acetaminophen (Tylenol) 650 mg RECTAL Q4H PRN PRN PRN Reason: Headache/Temp>99F Acetaminophen (Tylenol Liquid) 650 mg NG Q4H PRN PRN PRN Reason: Headache/Temp>99F Aspirin (Ecotrin) 81 mg PO DAILY@0800 [facility] Last Admin: 05/31/17 09:21 Dose: 81 mg Atorvastatin Calcium (Lipitor) 80 mg PO QHS [facility] Last Admin: 05/30/17 22:13 Dose: 80 mg Clopidogrel Bisulfate (Plavix) 75 mg PO DAILY [facility] Last Admin: 05/31/17 09:21 Dose: 75 mg Enoxaparin Sodium (Lovenox) 40 mg SC DAILY@1000 [facility] Last Admin: 05/31/17 09:22 Dose: 40 mg Lorazepam (Ativan) 2 mg IV UD PRN; Protocol PRN Reason: CIWA score >/=15. Magnesium Hydroxide (Milk Of Magnesia) 30 ml PO DAILY PRN PRN PRN Reason: Constipation Quetiapine Fumarate (Seroquel) 25 mg PO QHS YESENIA Last Admin: 05/30/17 22:13 Dose: 25 mg Sodium Chloride () 5 - 30 ml IV UD PRN PRN Reason: SALINE FLUSH Last Admin: 05/29/17 21:52 Dose: 20 ml Medical Necessity - Tobacco Use Smoking Status: Current every day smoker Tobacco Use: Cigarettes Assessment/Plan Active and Suspected Problems CVA (cerebral vascular accident) (Acute) 1. Acute left MCA stroke * This is per Dr. Milian's interpretation. Given patient's history certainly is concerning as well. * Confirmed stroke on MRI with an acute stroke to the left frontal temporal and parietal lobes secondary to left internal carotid occlusion * Continue aspirin and Plavix * Unknown time of onset as patient was noted to be confused today therefore unfortunate on the window for TPA. * Patient will require rehab upon discharge. Given the patient's acute stroke, is feeling by neurology that the patient should not travel back to [place]. Currently awaiting precertification for the patient to go to the inpatient rehab unit here. . * he will be n.p.o. until he passes a bedside swallow evaluation. * Echocardiogram showed ejection fraction of 65% but no shunt was visualized. 2. Coronary artery disease * No ischemic changes on EKG * Continue with Plavix and metoprolol. 3. DVT prophylaxis with Lovenox
--- NOTE | 2017-05-31 12:39 | TREXTCAR_ITS ---
- Diet 05/26/17 13:41 Diet: Cardiac/Low Cholesterol Food consistency:: Soft Liquid Consistency:: Regular/Thin Dietary Modifications:: Soft Diet Type of Dietary Supplement:: Ensure Complete Is pt able to select menu?: No Diet Comments: Direct supervision/total feed; meds crushed in purees if able ; no straws - Routine Orders/Code Status Routine Lab Work: CBC, BMP Code Status: Full Code - Wound(s) Rt flank Wound Type: Abrasion Rt knee Wound Type: Abrasion 2nd toe Wound Type: Abrasion Rt lat foot Wound Type: Abrasion Left great toe under broken nail Wound Type: Broken nail pulled away from nail bed r elbow Wound Type: Abrasion R forehead Wound Type: Abrasion - Therapies Weight Bearing: Full weight bearing Extremity Affected:: Right Upper Physical Therapy: Eval and Treat Occupational Therapy: Eval and Treat - Problem/Diagnosis (1) CVA (cerebral vascular accident) Status: Acute Current Visit: Yes (2) CAD (coronary artery disease) Status: Chronic Current Visit: Yes - Allergies/Procedures Done in Hospital Allergies/Adverse Reactions: Allergies No Known Allergies Allergy (Verified 05/25/17 15:07) - Type of Care/Length of Stay Estimated LOS: Convalescent Care Less Than 30 days Type of Care Needed: Acute Rehab Rehab Potential: Fair Prognosis: Fair - Additional Orders/Day of Discharge Day of Discharge: 05/31/17 - Dietary and Speech Recommendations Dietitian Recommendations/Changes: Will change ensure enlive at meals to ensure pudding / magic cup with meals d/t thickened liquids - Follow Up Care Primary Care Physician: Vicki Briceno,Out of [NON-STAFF] -
--- NOTE | 2017-05-31 12:40 | PCM.DC.SUM ---
Discharge Date and Diagnosis - Problem List Patient Problems: Active and Suspected Problems CVA (cerebral vascular accident) (Acute) Date of Admission: 05/25/17 Date of Discharge: 05/31/17 - Primary Discharge Diagnosis Active and Suspected Problems CVA (cerebral vascular accident) (Acute) - Secondary Discharge Diagnosis Chronic Problems CAD (coronary artery disease) (Chronic) Hospital Course and Treatment Imaging Results: Clinical Impression(s) from Imaging Studies Abdomen/Pelvis CT 05/25/17 10:46 IMPRESSION: No acute findings throughout the abdomen and pelvis. Status post appendectomy. Borderline hepatomegaly. Electronically Signed: Les Holland DO at 11:32 EDT Tel , Service support , Brain CT 05/25/17 10:46 IMPRESSION: No acute intracranial pathology. Left maxillary sinusitis. Electronically Signed: Les Holland DO at 11:33 EDT Tel , Service support , Chest X-Ray 05/25/17 10:46 IMPRESSION: Hypoinflated lungs. Lungs are clear. Electronically Signed: Les Holland DO at 11:34 EDT Tel , Service support , Brain CT 05/25/17 11:37 IMPRESSION: Abnormal CT head scan showing nonenhancing abnormal edema in both temporal lobes, left greater than right, the insular lobes, left greater than right, the left frontal operculum, left greater than right, left subinsular white matter and left retrolenticular white matter. 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 RECOMMENDATION: MRI of the brain with and without contrast and MRA of the head. Electronically Signed: Raza Enciso MD at 13:34 EDT , Service support , Brain MRI 05/25/17 15:34 IMPRESSION: Acute ischemic infarction of the left frontal temporal and parietal lobes secondary to left internal carotid occlusion. MRA recommended for further evaluation. Electronically Signed: Juan Jose Guy MD at 22:20 EDT , Service support , Head MRA 05/25/17 19:11 IMPRESSION: Findings consistent with occlusion of the petrous portion of the left internal carotid extending to the level of the middle cerebral artery. Electronically Signed: Juan Jose Guy MD at 22:23 EDT , Service support , Neck MRA 05/25/17 19:11 IMPRESSION: Occluded left internal carotid just distal to the bifurcation. Electronically Signed: Juan Jose Guy MD at 22:24 EDT , Service support , Consultations 05/25/17 15:34 Consult: Onc/Wound/piece maker Routine Comment: Operations: None Procedures: 2-D Echocardiogram Summary of Care Provided: The patient is a 41 year old M presents with confusion and right-sided hemiparesis. Patient was found to have a left MCA stroke. Patient was admitted and was underwent a stroke workup. Patient seen in consultation by neurology, seen by physical and Occupational Therapy. 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 Patient was seen by physical therapy recommended rehab. Spoke with [facility] for [id number] to have the patient qualified for rehab. Discussed with the physician and they agreed for acute rehab at this time. Is my feeling the patient would best suited in acute rehab given his acute stroke and his deficits and his young age. Goal is for him the do rehab and then be able to get back home. Patient is not fit to go back on a trip to [place] yet. [] Discharge Diet: Low fat/ Low Cholesterol Discharge Activity: Return to Normal Activity May resume sexual activity in: No Restrictions Weight Bearing Status: Weight bearing as tolerated Keep extremity elevated above heart level: Right Arm, Right Leg Call your doctor if you observe: Fever of 101 or Higher, Shortness of breath, Chest pain Home Medications: Medications to take at Discharge Albuterol Sulfate [Ventolin Hfa] 2 puff IH Q4H PRN PRN 05/25/17 Clopidogrel Bisulfate [Plavix] 75 mg PO DAILY 05/25/17 Metoprolol(XL)Succ [Toprol Xl (Beta Luis Fernando)] 25 mg PO DAILY 05/25/17 Acetaminophen [Tylenol Tablet] 650 mg PO Q4H PRN PRN #0 tablet 05/31/17 Aspirin E.C. [Ecotrin] 81 mg PO DAILY@0800 tablet 05/31/17 Atorvastatin Calcium [Lipitor] 80 mg PO QHS tablet 05/31/17 Enoxaparin [Lovenox] 40 mg SC DAILY@1000 syringe 05/31/17 Primary Care Physician: Vicki Briceno,Out of [NON-STAFF] - Disposition: Inpt Rehab Unit/Facility Minutes spent on discharge:: 32 Patient Condition:: Fair Medical Necessity - Tobacco Use Smoking Status: Current every day smoker Tobacco Use: Cigarettes Meaningful Use Info Meaningful Use Diagnoses (Choose all that apply): Ischemic CVA - CVA Therapy Assessed for PT,OT and/or ST?: Yes - Ischemic Stroke Antithrombotic order at d/c?: Yes Dx of Atrial fib/flutter?: No Statins at discharge?: Yes Primary Dx Acute Ischemic CVA?: Yes IV tPA ordered during stay?: No Reason IV t-PA not ordered: Procedure not Indicated Code Visit Inpatient E&M: 34263 Disch Hosp
--- NOTE | 2017-05-31 12:43 | DS.PCM_ITS ---
Discharge Date and Diagnosis - Problem List Patient Problems: Active and Suspected Problems CVA (cerebral vascular accident) (Acute) Date of Admission: 05/25/17 Date of Discharge: 05/31/17 - Primary Discharge Diagnosis Active and Suspected Problems CVA (cerebral vascular accident) (Acute) - Secondary Discharge Diagnosis Chronic Problems CAD (coronary artery disease) (Chronic) Hospital Course and Treatment Imaging Results: Clinical Impression(s) from Imaging Studies Abdomen/Pelvis CT 05/25/17 10:46 IMPRESSION: No acute findings throughout the abdomen and pelvis. Status post appendectomy. Borderline hepatomegaly. Electronically Signed: Les Holland DO at 11:32 EDT Tel , Service support , Brain CT 05/25/17 10:46 IMPRESSION: No acute intracranial pathology. Left maxillary sinusitis. Electronically Signed: Les Holland DO at 11:33 EDT Tel , Service support , Chest X-Ray 05/25/17 10:46 IMPRESSION: Hypoinflated lungs. Lungs are clear. Electronically Signed: Les Holland DO at 11:34 EDT Tel , Service support , Brain CT 05/25/17 11:37 IMPRESSION: Abnormal CT head scan showing nonenhancing abnormal edema in both temporal lobes, left greater than right, the insular lobes, left greater than right, the left frontal operculum, left greater than right, left subinsular white matter and left retrolenticular white matter. 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 RECOMMENDATION: MRI of the brain with and without contrast and MRA of the head. Electronically Signed: Raza Enciso MD at 13:34 EDT , Service support , Brain MRI 05/25/17 15:34 IMPRESSION: Acute ischemic infarction of the left frontal temporal and parietal lobes secondary to left internal carotid occlusion. MRA recommended for further evaluation. Electronically Signed: Juan Jose Guy MD at 22:20 EDT , Service support , Head MRA 05/25/17 19:11 IMPRESSION: Findings consistent with occlusion of the petrous portion of the left internal carotid extending to the level of the middle cerebral artery. Electronically Signed: Juan Jose Guy MD at 22:23 EDT , Service support , Neck MRA 05/25/17 19:11 IMPRESSION: Occluded left internal carotid just distal to the bifurcation. Electronically Signed: Juan Jose Guy MD at 22:24 EDT , Service support , Consultations 05/25/17 15:34 Consult: Onc/Wound/pusher runner Routine Comment: Operations: None Procedures: 2-D Echocardiogram Summary of Care Provided: The patient is a 41 year old M presents with confusion and right-sided hemiparesis. Patient was found to have a left MCA stroke. Patient was admitted and was underwent a stroke workup. Patient seen in consultation by neurology, seen by physical and Occupational Therapy. 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 Patient was seen by physical therapy recommended rehab. Spoke with [facility] for [id number] to have the patient qualified for rehab. Discussed with the physician and they agreed for acute rehab at this time. Is my feeling the patient would best suited in acute rehab given his acute stroke and his deficits and his young age. Goal is for him the do rehab and then be able to get back home. Patient is not fit to go back on a trip to [place] yet. [] Discharge Diet: Low fat/ Low Cholesterol Discharge Activity: Return to Normal Activity May resume sexual activity in: No Restrictions Weight Bearing Status: Weight bearing as tolerated Keep extremity elevated above heart level: Right Arm, Right Leg Call your doctor if you observe: Fever of 101 or Higher, Shortness of breath, Chest pain Home Medications: Medications to take at Discharge Albuterol Sulfate [Ventolin Hfa] 2 puff IH Q4H PRN PRN 05/25/17 Clopidogrel Bisulfate [Plavix] 75 mg PO DAILY 05/25/17 Metoprolol(XL)Succ [Toprol Xl (Beta Luis Fernando)] 25 mg PO DAILY 05/25/17 Acetaminophen [Tylenol Tablet] 650 mg PO Q4H PRN PRN #0 tablet 05/31/17 Aspirin E.C. [Ecotrin] 81 mg PO DAILY@0800 tablet 05/31/17 Atorvastatin Calcium [Lipitor] 80 mg PO QHS tablet 05/31/17 Enoxaparin [Lovenox] 40 mg SC DAILY@1000 syringe 05/31/17 Primary Care Physician: Vicki Briceno,Out of [NON-STAFF] - Disposition: Inpt Rehab Unit/Facility Minutes spent on discharge:: 32 Patient Condition:: Fair Medical Necessity - Tobacco Use Smoking Status: Current every day smoker Tobacco Use: Cigarettes Meaningful Use Info Meaningful Use Diagnoses (Choose all that apply): Ischemic CVA - CVA Therapy Assessed for PT,OT and/or ST?: Yes - Ischemic Stroke Antithrombotic order at d/c?: Yes Dx of Atrial fib/flutter?: No Statins at discharge?: Yes Primary Dx Acute Ischemic CVA?: Yes IV tPA ordered during stay?: No Reason IV t-PA not ordered: Procedure not Indicated Code Visit Inpatient E&M: 50706 Disch Hosp
--- NOTE | 2017-05-31 13:00 | PCM.HP.STD ---
History of Present Illness Date of Admission: 05/31/17 Chief Complaint: right sided weakness Rehab H&P The patient is a 41 year old M with a history of stroke in the past. He presented to [facility] with a wakeup stroke, his last known normal was unknown. He apparently was staying in a hotel room as part of his job, and he was found after he was yelling, by a lime boiler. He presented to the hospital with profound right-sided weakness and neglect, evaluation included workup of CTA and MRI which showed a large left MCA distribution acute infarct as well as an occluded left ICA and MCA. Therapies were initiated. He passed a swallowing evaluation. He improved from a physical therapy and occupational therapy standpoint. He lives in [place] with his family but it was not felt medically appropriate for transfer at this time. His agrees with admission to the rehab unit. He is now admitted to the [facility] acute rehab unit with therapies and a goal of pentecostalism of his prior level of functional independence. Past Medical History Past Medical History (Chronic Problems): Chronic Problems CAD (coronary artery disease) (Chronic) Allergies No Known Allergies Allergy (Verified 05/25/17 15:07) Home Medications: Ambulatory Orders Medication Instructions Recorded Albuterol Sulfate [Ventolin Hfa] 2 puff IH Q4H PRN PRN 05/25/17 Clopidogrel Bisulfate [Plavix] 75 mg PO DAILY 05/25/17 Metoprolol(XL)Succ [Toprol Xl 25 mg PO DAILY 05/25/17 (Beta Luis Fernando)] Acetaminophen [Tylenol Tablet] 650 mg PO Q4H PRN PRN #0 tablet 05/31/17 Aspirin E.C. 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 Smoking Status: Current every day smoker Tobacco Use: Cigarettes - *Family History Maternal History Items: - - unable to obtain as patient is confused Review of Systems Constitutional: Denies: Chills, Fever, Weight Change HEENT: Denies: Head Aches, Sinus Congestion, Sinus Drainage Cardiovascular: Denies: Chest Pain, Palpitations Respiratory: Denies: Cough, Shortness of breath at rest, Sputum production Gastrointestinal: Denies: Abdominal Pain, Nausea, Vomiting Genitourinary: Denies: Dysuria Musculoskeletal: Denies: Joint Pain, Joint Tenderness Skin: Denies: Rash, Wounds Neurological: Denies: Numbness, Tingling, Focal weakness Psychiatric: Denies: Anxiety, Depression, Homicidal Ideations, Suicidal Ideations Hematologic/ Lymphatic: Denies: Easy Bruising, Easy Bleeding VTE Information - Inpt Only VTE Present on Admission: Yes VTE Pharm Prophylaxis ordered?: Yes Patient Problems: Active and Suspected Problems CVA (cerebral vascular accident) (Acute) Objective: On examination he is awake and alert. He has a right hemianopsia which has improved since his initial presentation, he is able to cross the midline and look to the right side. He has a right central 7 There is sensory extinction on the right side although this is to a lesser extent than on admission. He is unable to move his right arm. He is able to follow commands with his left side He is able to tell me his name, his age, and the month and year. The right arm is flaccid, as is the right leg Right toe is upgoing - Physical Exam Vital Signs Temp Pulse Resp BP Pulse Ox 36.6 C 110 H 14 129/86 H 96 05/31/17 09:20 05/31/17 09:20 05/31/17 09:20 05/31/17 09:20 05/31/17 09:20 Oxygen Flow Rate (L/min) 2 Oxygen Delivery Method Room Air Weight: 102 kg Body Mass Index (BMI) 31.4 Intake and Output for Last 24 Hours 05/29/17 05/30/17 05/31/17 23:59 23:59 23:59 Intake Total 4330 / 4330 1622 / 1622 120 / 120 Output Total 1475 / 1475 1075 / 1075 875 / 875 Balance 2855 / 2855 547 / 547 -755 / -755 Current Medications Generic Name Dose Route Start Last Admin Trade Name Freq PRN Reason Stop Dose Admin Acetaminophen 650 mg 05/25/17 15:34 05/29/17 21:52 Tylenol PO 650 mg Q4H PRN PRN Administration Headache/Temp>99F Acetaminophen 650 mg 05/25/17 15:34 Tylenol RECTAL Q4H PRN PRN Headache/Temp>99F Acetaminophen 650 mg 05/25/17 15:34 Tylenol Liquid NG Q4H PRN PRN Headache/Temp>99F Aspirin 81 mg 05/29/17 08:00 05/31/17 09:21 Ecotrin PO 81 mg DAILY@0800 YESENIA Administration Atorvastatin Calcium 80 mg 05/30/17 22:00 05/30/17 22:13 Lipitor PO 80 mg QHS YESENIA Administration Clopidogrel Bisulfate 75 mg 05/26/17 10:00 05/31/17 09:21 Plavix PO 75 mg DAILY YESENIA Administration Enoxaparin Sodium 40 mg 05/25/17 23:15 05/31/17 09:22 Lovenox SC 40 mg DAILY@1000 YESENIA Administration Lorazepam 2 mg 05/28/17 05:37 Ativan IV UD PRN CIWA score >/=15. Protocol Magnesium Hydroxide 30 ml 05/25/17 15:34 Milk Of Magnesia PO DAILY PRN PRN Constipation Quetiapine Fumarate 25 mg 05/27/17 22:00 05/30/17 22:13 Seroquel PO 25 mg QHS YESENIA Administration Sodium Chloride 5 - 30 ml 05/25/17 16:43 05/29/17 21:52 IV 20 ml UD PRN Administration SALINE FLUSH Assessment/Plan Active and Suspected Problems CVA (cerebral vascular accident) (Acute) Debility due to 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 Debility includes right hemiparesis and neglect as well as hemianopsia and receptive aphasia. Of rehab is pentecostalism of prior level of functional independence Plan: Therapy for gait and balance Occupational Therapy for ADLs Speech therapy Pressure is currently controlled, continue to monitor Aspirin and Plavix for now Statin therapy Bowel protocol DVT prophylaxis: Lovenox continue smoking cessation
--- NOTE | 2017-05-31 13:03 | HP.PCM_ITS ---
History of Present Illness Date of Admission: 05/31/17 Chief Complaint: right sided weakness Rehab H&P The patient is a 41 year old M with a history of stroke in the past. He presented to [facility] with a wakeup stroke, his last known normal was unknown. He apparently was staying in a hotel room as part of his job, and he was found after he was yelling, by a flare worker. He presented to the hospital with profound right-sided weakness and neglect, evaluation included workup of CTA and MRI which showed a large left MCA distribution acute infarct as well as an occluded left ICA and MCA. Therapies were initiated. He passed a swallowing evaluation. He improved from a physical therapy and occupational therapy standpoint. He lives in [place] with his family but it was not felt medically appropriate for transfer at this time. His agrees with admission to the rehab unit. He is now admitted to the [facility] acute rehab unit with therapies and a goal of synagogue of his prior level of functional independence. Past Medical History Past Medical History (Chronic Problems): Chronic Problems CAD (coronary artery disease) (Chronic) Allergies No Known Allergies Allergy (Verified 05/25/17 15:07) Home Medications: Ambulatory Orders Medication Instructions Recorded Albuterol Sulfate [Ventolin Hfa] 2 puff IH Q4H PRN PRN 05/25/17 Clopidogrel Bisulfate [Plavix] 75 mg PO DAILY 05/25/17 Metoprolol(XL)Succ [Toprol Xl 25 mg PO DAILY 05/25/17 (Beta Luis Fernando)] Acetaminophen [Tylenol Tablet] 650 mg PO Q4H PRN PRN #0 tablet 05/31/17 Aspirin E.C. 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 Smoking Status: Current every day smoker Tobacco Use: Cigarettes - *Family History Maternal History Items: - - unable to obtain as patient is confused Review of Systems Constitutional: Denies: Chills, Fever, Weight Change HEENT: Denies: Head Aches, Sinus Congestion, Sinus Drainage Cardiovascular: Denies: Chest Pain, Palpitations Respiratory: Denies: Cough, Shortness of breath at rest, Sputum production Gastrointestinal: Denies: Abdominal Pain, Nausea, Vomiting Genitourinary: Denies: Dysuria Musculoskeletal: Denies: Joint Pain, Joint Tenderness Skin: Denies: Rash, Wounds Neurological: Denies: Numbness, Tingling, Focal weakness Psychiatric: Denies: Anxiety, Depression, Homicidal Ideations, Suicidal Ideations Hematologic/ Lymphatic: Denies: Easy Bruising, Easy Bleeding VTE Information - Inpt Only VTE Present on Admission: Yes VTE Pharm Prophylaxis ordered?: Yes Patient Problems: Active and Suspected Problems CVA (cerebral vascular accident) (Acute) Objective: On examination he is awake and alert. He has a right hemianopsia which has improved since his initial presentation, he is able to cross the midline and look to the right side. He has a right central 7 There is sensory extinction on the right side although this is to a lesser extent than on admission. He is unable to move his right arm. He is able to follow commands with his left side He is able to tell me his name, his age, and the month and year. The right arm is flaccid, as is the right leg Right toe is upgoing - Physical Exam Vital Signs Temp Pulse Resp BP Pulse Ox 36.6 C 110 H 14 129/86 H 96 05/31/17 09:20 05/31/17 09:20 05/31/17 09:20 05/31/17 09:20 05/31/17 09:20 Oxygen Flow Rate (L/min) 2 Oxygen Delivery Method Room Air Weight: 102 kg Body Mass Index (BMI) 31.4 Intake and Output for Last 24 Hours 05/29/17 05/30/17 05/31/17 23:59 23:59 23:59 Intake Total 4330 / 4330 1622 / 1622 120 / 120 Output Total 1475 / 1475 1075 / 1075 875 / 875 Balance 2855 / 2855 547 / 547 -755 / -755 Current Medications Generic Name Dose Route Start Last Admin Trade Name Freq PRN Reason Stop Dose Admin Acetaminophen 650 mg 05/25/17 15:34 05/29/17 21:52 Tylenol PO 650 mg Q4H PRN PRN Administration Headache/Temp>99F Acetaminophen 650 mg 05/25/17 15:34 Tylenol RECTAL Q4H PRN PRN Headache/Temp>99F Acetaminophen 650 mg 05/25/17 15:34 Tylenol Liquid NG Q4H PRN PRN Headache/Temp>99F Aspirin 81 mg 05/29/17 08:00 05/31/17 09:21 Ecotrin PO 81 mg DAILY@0800 YESENIA Administration Atorvastatin Calcium 80 mg 05/30/17 22:00 05/30/17 22:13 Lipitor PO 80 mg QHS YESENIA Administration Clopidogrel Bisulfate 75 mg 05/26/17 10:00 05/31/17 09:21 Plavix PO 75 mg DAILY YESENIA Administration Enoxaparin Sodium 40 mg 05/25/17 23:15 05/31/17 09:22 Lovenox SC 40 mg DAILY@1000 YESENIA Administration Lorazepam 2 mg 05/28/17 05:37 Ativan IV UD PRN CIWA score >/=15. Protocol Magnesium Hydroxide 30 ml 05/25/17 15:34 Milk Of Magnesia PO DAILY PRN PRN Constipation Quetiapine Fumarate 25 mg 05/27/17 22:00 05/30/17 22:13 Seroquel PO 25 mg QHS YESENIA Administration Sodium Chloride 5 - 30 ml 05/25/17 16:43 05/29/17 21:52 IV 20 ml UD PRN Administration SALINE FLUSH Assessment/Plan Active and Suspected Problems CVA (cerebral vascular accident) (Acute) Debility due to 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 Debility includes right hemiparesis and neglect as well as hemianopsia and receptive aphasia. Of rehab is synagogue of prior level of functional independence Plan: Therapy for gait and balance Occupational Therapy for ADLs Speech therapy Pressure is currently controlled, continue to monitor Aspirin and Plavix for now Statin therapy Bowel protocol DVT prophylaxis: Lovenox continue smoking cessation
--- NOTE | 2017-05-31 13:10 | REHABEVAL_ITS ---
Admission Information Status Changes from Prescreening?: No changes Identified Actual Problem List:: Falls, Cognitve Impr/Memory Loss, Alteration in Nutrition , Mobility Impaired, Self Care Deficit, Ineffective Communication, Ineffect.D/C Plan r/t Psy Potential Problem List:: DVT, Bleeding, Infection, UTI, Aspiration, Falls, Skin Integrity, Depression Risk of Complications DVT: LMWH, MARY GRACE Hose, Sequential Compression Device Bleeding: Monitor Lab Values, Nursing to Teach Precautions for anti-coagulation therapy., Wound, if applicable, to be assessed every shift., Stroke patients assessed for lethargy or change in status. Infection: Clinical Staff to Monitor for S/S of infection:, S/S of infection include fever, redness, warmth, etc. Urinary Tract Infection: Monitor for frequency, burning, discomfort, or incontinence., Nursing will obtain urine sample for urinalysis and C&S when ordered. Aspiration: Clinical staff will monitor for coughing, drooling, congestion., Speech will evaluate swallowing and dsyphasia., Nursing will monitor patient swallowing during meals. Falls: Patient will be evaluated for Fall Precautions, Patient will be placed on Fall Precautions as indicated per protocol. Skin Breakdown: Nursing will assess skin daily using assessment tool., Nursing will place on Skin Breakdown Precautions as indicated. Pain: Clinical staff will assess patient's pain level per protocol., Medications will be given, if needed, and the pain level reassessed., Other methods: Massage, distraction, decrease stimulus, etc. used PRN. Plan of Care Patient requires physician specializing in physical medicine and rehab oversight to provide close medical supervision of rehab issues including: Pain Management, Sleep Problems, Bowel and Bladder, Medical and co-morbidity Management, DVT prophylaxis, Rehabilitation Leadership, Coordination of treatment team Patient needs Physical Therapy: For a minimum of 1 hour, At least 5 out of 7 days Patient needs Physical Therapy to improve:: Mobility, Mobility, Mobility, Strengthening, Transfers, Stretching, ROM, Endurance, Stairs, Gait, Balance Patient needs Occupational Therapy: For a minimum of 1 hour, At least 5 out of 7 days Patient needs Occupational Therapy to improve ADL's incl.: Eating, Grooming, Bathing, Dressing, Toileting, Toilet transfers, Community Reintegration, Higher functioning activities, Household tasks, Adaptive Equipment, Splinting, Other activities as determined Patient requires speech therapy: For a minimum of 1 hour, At least 5 out of 7 days Patient requires speech therapy for: Swallowing, Cognition, Language Skills, Compensatory Strategies Patient requires 24/ Rehabilitation Nursing for: Pain Issues, Identifying and preventing risk factors, Monitoring and reporting current medical conditions, Assisting with ambulation, transfer, and all ADL's, Teaching patients about disease process and medications, Family teaching, Providing safe environment, Bowel and Bladder Issues, Skin integrity, Medication Management Patient needs Catalyst Concentration Operator/ Case Management for: Discharge Planning, Arranging Home Equipment or Services, Family Interventions Patient needs Dietary and Nutrition Services for: Adequate Nutrition, Nutritional Supplements, Nutritional Education Goals Patient will remain: free from falls, or injury at time of discharge. Patient will perform bed mobility at: MOD I level of assist. Patient will complete transfers from bed to chair at: MOD I level of assist. Patient will ambulate: 100 feet, with MOD I assist, with LRD Patient will complete upper body dressing at: MOD I level of assist. Patient will complete lower body dressing at: MOD I level of assist. Patient will complete toileting at: MOD I level of assist. Patient will perform bathing at: MOD I level of assist. Patient will complete grooming at: MOD I level of assist. Patient will complete home management skills at: MOD I level of assist. Patient will achieve: 12 stairs, at MOD I assist Patient will have pain level of: of 3 or less Patient's skin will: remain intact, free from infection. Patient will receive: adequate nutrition. Discharge Planning Pt Prognosis for Sig. Practical Improv. w/in Reasonable Time: Good Anticipated D/C Destination: Home with Outpt Therapy Was Preadmission Assessment Accurate?: Yes
--- NOTE | 2017-05-31 14:41 | NURSING ---
[facility]
[2017-05-31 14:45] VITALS: BP 134/85; PULSE 110; RESP 16; TEMP 36.8; O2SAT 96
== END 2017-05-31 14:53 | DRG 64 ==
LOC: ED 12:36 → ICU 15:10 → PCU 05-30 07:10 → ICU 05-30 11:00
PROVIDERS: Family Medicine; Hospitalist; Emergency Provider Emergency Medicine
DX: I63.512 Cerebral infarction due to unspecified occlusion or stenosis of left middle cerebral artery (principal); G93.6 Cerebral edema; G81.01 Flaccid hemiplegia affecting right dominant side; G81.91 Hemiplegia, unspecified affecting right dominant side; F17.210 Nicotine dependence, cigarettes, uncomplicated; I25.10 Atherosclerotic heart disease of native coronary artery without angina pectoris; S00.91XA Abrasion of unspecified part of head, initial encounter; S20.319A Abrasion of unspecified front wall of thorax, initial encounter; S30.811A Abrasion of abdominal wall, initial encounter; S40.812A Abrasion of left upper arm, initial encounter; S40.811A Abrasion of right upper arm, initial encounter; S80.812A Abrasion, left lower leg, initial encounter; S80.811A Abrasion, right lower leg, initial encounter; X58.XXXA Exposure to other specified factors, initial encounter; Y92.9 Unspecified place or not applicable; I10 Essential (primary) hypertension; E78.5 Hyperlipidemia, unspecified; I25.2 Old myocardial infarction; R47.01 Aphasia; Z79.02 Long term (current) use of antithrombotics/antiplatelets; Z95.5 Presence of coronary angioplasty implant and graft; R45.1 Restlessness and agitation; R29.810 Facial weakness
CPT/HCPCS: 36415; 70450; 70460; 70544; 70549; 70553; 71045; 74176; 80048; 80061; 80076; 80307; 80320; 81001; 82550; 82962; 83605; 84439; 84443; 84481; 84484; 85025; 85027; 85610; 87040; 92526; 93005; 93306; 97162; 97166; 97530; 99285; A9585; J7030; Q9967; A4216; G0480; J0696

== ENCOUNTER 2017-05-31 15:10 | Inpatient (IN) | payer OTHER, SELFPAY ==
[2017-05-31 15:26] VITALS: BP 109/80; PULSE 114; RESP 18; TEMP 36.8; O2SAT 96; BMI 30.2
[2017-05-31 16:37] VITALS: BMI 30.2
[2017-05-31 19:33] VITALS: BP 124/83; PULSE 110; RESP 16; TEMP 37.1; O2SAT 93
[2017-05-31] MEDS: Senna/Docusate Sodium 1 Tablet 2 TABLET PO (19:59)
[2017-05-31] MEDS: NYSTATIN 500,000 UNIT/5 ML UDC 500000 UNIT PO (19:59)
[2017-05-31] MEDS: Atorvastatin Calcium 80 MG Tablet PO (19:59)
[2017-05-31 20:17] VITALS: BMI 30.2
--- NOTE | 2017-06-01 00:01 | NURSING ---
Pt not using call light for needs. Pt calling out for staff instead. Pt reinstructed to call light and usage. Pt set off alarm while repositioning in bed several times and just lays in bed while nurse tries to replace alarm cord.
--- NOTE | 2017-06-01 02:33 | NURSING ---
0200 after completing purposeful rounding, pts pa went off and pt was noted to be sitting on the edge of the bed with legs scrawled on the floor. water pitcher had been dumped on the bed with attends ripped off soaked with urine and urine on the bed as well. when staff asked if he needed help pt responded leave me the fuck alone, I'm fine. staff member put light on in the room to better assess the situation and again pt if he needed assistance getting back into bed pt stated in a loud voice, don't fucking touch me and turn that fucking light out. at this point pt was leaning to his weak side and almost fell off the bed with staff catching him then assisting him to an upright position. pt then fell back into the bed were staff proceeded to change bed linens, give montserrat-care and apply clean attends. pt was cooperative with this. pt denied and discomfort or pain when asked fall strategies are intact with call light in reach
--- NOTE | 2017-06-01 03:48 | NURSING ---
Pt setting off pa and denies needs. Staff attempting to attend to needs and keep pt safe but pt remains gruff.
[2017-06-01] MEDS: Enoxaparin 40 MG/0.4 ML Syringe SC (05:26)
[2017-06-01 06:14] LABS: Hematocrit 44.9 % (40-54); Hemoglobin 15.6 g/dl (13.0-16.5); Mean Corp Hgb Conc 34.7 g/gl (32-36); Mean Platelet Vol. 9.2 fl (6.2-12.0); Platelet Count 336 K/mm3 (150-450); RBC Distribution Width CV 12.9 % (11.6-14.6); Red Blood Count 4.88 M/mm3 (4.6-6.2); White Blood Count 16.4 K/mm3 (4.4-11.0)
[2017-06-01 06:27] LABS: Scan Indicated on CBC? Y/N NO
[2017-06-01 06:46] LABS: Anion Gap 9 (5-15); BUN 28 mg/dL (7-18); BUN/Creat Ratio 30.4 RATIO (10-20); Calcium,Total 9.2 mg/dL (8.5-10.1); Chloride 103 mmol/L (98-107); Creatinine, Serum 0.92 mg/dL (0.70-1.30); EST Glomerular Filtration Rate 95 mL/min (>60); Est Glom Filt Rate - Afr Amer 115 mL/min (>60); Estimated Creatinine Clearance 113.64 ml/min; Glucose 105 mg/dL (74-106); Magnesium 2.3 mg/dL (1.6-2.6); Phosphorus 3.8 mg/dL (2.5-4.9); Potassium 4.1 mmol/L (3.5-5.1); Sodium Level 135 mmol/L (136-145)
[2017-06-01 08:00] VITALS: BP 109/77; PULSE 79; RESP 18; TEMP 37; O2SAT 97
[2017-06-01] MEDS: Escitalopram Oxalate 10 MG Tablet PO (08:02)
[2017-06-01] MEDS: Clopidogrel Bisulfate 75 MG Tablet PO (08:02)
[2017-06-01 08:03] VITALS: PULSE 79
[2017-06-01] MEDS: Metoprolol(XL)Succ 25 MG Tablet PO (08:03)
[2017-06-01] MEDS: NYSTATIN 500,000 UNIT/5 ML UDC 500000 UNIT PO ×3 (08:03→19:50)
[2017-06-01] MEDS: Senna/Docusate Sodium 1 Tablet 2 TABLET PO ×2 (08:03→19:50)
[2017-06-01] MEDS: Aspirin E.C. 81 MG Tablet PO (08:03)
--- NOTE | 2017-06-01 09:05 | NURSING ---
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 Per PCU nurses shift clinical findings, the assessment of pupil reaction remains unchanged.
[2017-06-01] MEDS: Acetaminophen 325 MG Tablet 650 MG PO (09:31)
--- NOTE | 2017-06-01 09:52 | PCM.PN.NEU ---
Subjective: Patient seen and examined. According to Staff patient was very restless during the night set off bed alarm several times, would yell for the staff despite being shown how to use the call light several times. Was not very cooperative during Physical therapy's initial assessment, Was constantly cussing at the staff and during the morning meal. Re-started the Seroquel at bedtime. - Physical Exam General: Alert, Oriented x3, Cooperative HEENT: Atraumatic, PERRLA, EOMI, Normocephalic Neck: Supple, No JVD, Negative Carotid Bruits Lungs: Clear to auscultation, Normal air movement Cardiovascular: Regular rate, No murmurs Abdomen: Bowel Sounds Present, Soft, Non Tender Extremities: No edema, Capillary Refill Less than 3 Seconds Skin: No rashes, No breakdown Musculoskeletal: No Tenderness to Palpation of Joints or Extremities Neurological: Cranial nerves II-XII grossly intact, Slurred Speech, - - Right arm and right leg is flaccid Psych/Mental Status: Normal Affect, Appropriate, Alert and oriented to time, place, person, mood and affect Vital Signs Temp Pulse Resp BP Pulse Ox 98.6 F 79 18 109/77 97 06/01/17 08:00 06/01/17 08:03 06/01/17 08:00 06/01/17 08:00 06/01/17 08:00 Oxygen Delivery Method Room Air Weight: 114.4 kg Body Mass Index (BMI) 30.2 Finger Stick Blood Glucose 83 Intake and Output for Last 24 Hours 05/30/17 05/31/17 06/01/17 23:59 23:59 23:59 Intake Total 200 / 200 Output Total 121 / 121 225 / 225 Balance 79 / 79 -225 / -225 Laboratory Tests Past 24 Hrs 06/01/17 06/01/17 05:30 05:30 WBC 16.4 H RBC 4.88 Hgb 15.6 Hct 44.9 MCV 92.0 MCH 32.0 MCHC 34.7 RDW 12.9 RDW Differential 43.0 Plt Count 336 MPV 9.2 Sodium 135 L Potassium 4.1 Chloride 103 Carbon Dioxide 23.0 Anion Gap 9 BUN 28 H Creatinine 0.92 Estim Creat Clear Calc 113.64 Est GFR (MDRD) Af Amer 115 Est GFR (MDRD) Non-Af 95 BUN/Creatinine Ratio 30.4 H Glucose 105 Calcium 9.2 Phosphorus 3.8 Magnesium 2.3 Active Medications Acetaminophen (Tylenol) 650 mg PO Q4H PRN PRN PRN Reason: Headache/Temp>99F Last Admin: 06/01/17 09:31 Dose: 650 mg Aspirin (Ecotrin) 81 mg PO DAILY@0800 [facility] Last Admin: 06/01/17 08:03 Dose: 81 mg Atorvastatin Calcium (Lipitor) 80 mg PO QHS [facility] Last Admin: 05/31/17 19:59 Dose: 80 mg Bisacodyl (Dulcolax) 10 mg RECTAL .PRN X 1 PRN PRN Reason: Constipation Clopidogrel Bisulfate (Plavix) 75 mg PO DAILY [facility] Last Admin: 06/01/17 08:02 Dose: 75 mg Emollient Ointment (Eucerin Intensive Repair) 1 applic TOPICAL QHS [facility] PRN Reason: Protocol Enoxaparin Sodium (Lovenox) 40 mg SC DAILY@0600 [facility] Last Admin: 06/01/17 05:26 Dose: 40 mg Escitalopram Oxalate (Lexapro) 10 mg PO DAILY [facility] Last Admin: 06/01/17 08:02 Dose: 10 mg Magnesium Hydroxide (Milk Of Magnesia) 30 ml PO .PRN X 1 PRN PRN Reason: Constipation Metoprolol Succinate (Toprol Xl (Beta Luis Fernando)) 25 mg PO DAILY [facility] Last Admin: 06/01/17 08:03 Dose: 25 mg Nystatin (Nystatin) 500,000 unit PO 4X/DAY [facility] Last Admin: 06/01/17 08:03 Dose: 500,000 unit Quetiapine Fumarate (Seroquel) 25 mg PO DAILY@2000 [facility] Senna/Docusate Sodium (Senokot-S, Tammy-Colace) 2 tablet PO BID [facility] Last Admin: 06/01/17 08:03 Dose: 2 tablet Medical Necessity - Tobacco Use Smoking Status: Heavy Smoker (>10/day) Tobacco Use: Cigarettes Assessment/Plan Debility due to 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 Debility includes right hemiparesis and neglect as well as hemianopsia and receptive aphasia. Of rehab is hinduism of prior level of functional independence Plan: Therapy for gait and balance Occupational Therapy for ADLs Speech therapy Pressure is currently controlled, continue to monitor Aspirin and Plavix for now Statin therapy Bowel protocol DVT prophylaxis: Lovenox continue smoking cessation Seroquel at HS
[2017-06-01 12:49] VITALS: BMI 30.2
[2017-06-01 13:56] LABS: Red Blood Cells-Urine 0 SEEN /hpf (0-5); Squamous Epithelial Cells - UA 0 SEEN /hpf (0-5)
[2017-06-01 14:01] LABS: Color, Urine Yellow (Yellow); Glucose, Dipstick Normal (Normal); Ketone-Dipstick Negative (Negative); Leukocyte Esterase-Dipstick 25 /ul (Negative); Nitrite-Dipstick Negative (Negative); Occult Blood-Urine Negative /ul (Negative); Protein-Dipstick 30 mg/dl (Negative); Specific Gravity, Urine 1.025 (1.002-1.030); Urine Bilirubin Dipstick 1 mg/dL (Negative); Urine Clarity Clear (Clear); Urine Urobilinogen 1 mg/dl (Normal)
[2017-06-01 14:17] LABS: Bacteria RARE /hpf (None Seen); Mucous, Urine 1+ /hpf (<or=2+); White Blood Cells 0-5 SEEN /hpf (0-5)
--- NOTE | 2017-06-01 15:26 | PCM.PN.HOSP ---
Subjective: Still with right sided weakness. Vitals/I&O's: Vital Signs Temp Pulse Resp BP Pulse Ox 37.0 C 79 18 109/77 97 06/01/17 08:00 06/01/17 08:03 06/01/17 08:00 06/01/17 08:00 06/01/17 08:00 Oxygen Delivery Method Room Air Weight: 102 kg Body Mass Index (BMI) 30.2 Finger Stick Blood Glucose 83 Intake and Output for Last 24 Hours 05/30/17 05/31/17 06/01/17 23:59 23:59 23:59 Intake Total 200 / 200 Output Total 121 / 121 225 / 225 Balance 79 / 79 -225 / -225 General: Alert, No apparent distress HEENT: Atraumatic, Normocephalic Neck: No Nodes, Thyroid Normal Size and Texture Lungs: Clear to auscultation, Normal air movement, No rhonchi, No wheeze Cardiovascular: Regular rate, Regular Rhythm, Normal S1, Normal S2, No murmurs Abdomen: Bowel Sounds Present, Soft, Non Tender, Non-Distended, No Hepato-splenomegaly Extremities: No edema, No Calf Tenderness Neurological: - - right facial droop. flacid on right. Psych/Mental Status: Normal Affect, Appropriate Laboratory Results 06/01/17 05:30: WBC 16.4 H, RBC 4.88, Hgb 15.6, Hct 44.9, MCV 92.0, MCH 32.0, MCHC 34.7, RDW 12.9, RDW Differential 43.0, Plt Count 336, MPV 9.2 06/01/17 05:30: Sodium 135 L, Potassium 4.1, Chloride 103, Carbon Dioxide 23.0, Anion Gap 9, BUN 28 H, Creatinine 0.92, Estim Creat Clear Calc 113.64, Est GFR (MDRD) Af Amer 115, Est GFR (MDRD) Non-Af 95, BUN/Creatinine Ratio 30.4 H, Glucose 105, Calcium 9.2, Phosphorus 3.8, Magnesium 2.3 06/01/17 13:00: Urine Color Yellow, Urine Clarity Clear, Urine pH 6.0, Ur Specific [place] 1.025, Urine Protein 30 H, Urine Glucose (UA) Normal, Urine Ketones Negative, Urine Occult Blood Negative, Urine Nitrite Negative, Urine Bilirubin 1 H, Urine Urobilinogen 1 H, Ur Leukocyte Esterase 25 H, Urine RBC 0 SEEN, Urine WBC 0-5 SEEN, Ur Squamous Epith Cells 0 SEEN, Urine Bacteria RARE, Urine Mucus 1+ Current Medications Acetaminophen (Tylenol) 650 mg PO Q4H PRN PRN PRN Reason: Headache/Temp>99F Last Admin: 06/01/17 09:31 Dose: 650 mg Aspirin (Ecotrin) 81 mg PO DAILY@0800 [facility] Last Admin: 06/01/17 08:03 Dose: 81 mg Atorvastatin Calcium (Lipitor) 80 mg PO QHS [facility] Last Admin: 05/31/17 19:59 Dose: 80 mg Bisacodyl (Dulcolax) 10 mg RECTAL .PRN X 1 PRN PRN Reason: Constipation Clopidogrel Bisulfate (Plavix) 75 mg PO DAILY [facility] Last Admin: 06/01/17 08:02 Dose: 75 mg Emollient Ointment (Eucerin Intensive Repair) 1 applic TOPICAL QHS [facility] PRN Reason: Protocol Enoxaparin Sodium (Lovenox) 40 mg SC DAILY@0600 [facility] Last Admin: 06/01/17 05:26 Dose: 40 mg Escitalopram Oxalate (Lexapro) 10 mg PO DAILY [facility] Last Admin: 06/01/17 08:02 Dose: 10 mg Magnesium Hydroxide (Milk Of Magnesia) 30 ml PO .PRN X 1 PRN PRN Reason: Constipation Metoprolol Succinate (Toprol Xl (Beta Luis Fernando)) 25 mg PO DAILY [facility] Last Admin: 06/01/17 08:03 Dose: 25 mg Nystatin (Nystatin) 500,000 unit PO 4X/DAY [facility] Last Admin: 06/01/17 14:07 Dose: 500,000 unit Quetiapine Fumarate (Seroquel) 25 mg PO DAILY@2000 [facility] Senna/Docusate Sodium (Senokot-S, Tammy-Colace) 2 tablet PO BID [facility] Last Admin: 06/01/17 08:03 Dose: 2 tablet Medical Necessity - Tobacco Use Smoking Status: Heavy Smoker (>10/day) Tobacco Use: Cigarettes Assessment/Plan 1. Acute left MCA stroke This is per Dr. Milian's interpretation. Given patient's history certainly is concerning as well. Confirmed stroke on MRI with an acute stroke to the left frontal temporal and parietal lobes secondary to left internal carotid occlusion Continue aspirin and Plavix Unknown time of onset as patient was noted to be confused today therefore unfortunate on the window for TPA. Patient will require rehab upon discharge. Given the patient's acute stroke, is feeling by neurology that the patient should not travel back to [place]. Currently awaiting precertification for the patient to go to the inpatient rehab unit here. . Echocardiogram showed ejection fraction of 65% but no shunt was visualized. 2. Coronary artery disease No ischemic changes on EKG Continue with Plavix and metoprolol. 3. DVT prophylaxis with Lovenox Code Visit Inpatient E&M: 34658 Subs Hosp L2
--- NOTE | 2017-06-01 15:29 | PN_ITS ---
Subjective: Still with right sided weakness. Vitals/I&O's: Vital Signs Temp Pulse Resp BP Pulse Ox 37.0 C 79 18 109/77 97 06/01/17 08:00 06/01/17 08:03 06/01/17 08:00 06/01/17 08:00 06/01/17 08:00 Oxygen Delivery Method Room Air Weight: 102 kg Body Mass Index (BMI) 30.2 Finger Stick Blood Glucose 83 Intake and Output for Last 24 Hours 05/30/17 05/31/17 06/01/17 23:59 23:59 23:59 Intake Total 200 / 200 Output Total 121 / 121 225 / 225 Balance 79 / 79 -225 / -225 General: Alert, No apparent distress HEENT: Atraumatic, Normocephalic Neck: No Nodes, Thyroid Normal Size and Texture Lungs: Clear to auscultation, Normal air movement, No rhonchi, No wheeze Cardiovascular: Regular rate, Regular Rhythm, Normal S1, Normal S2, No murmurs Abdomen: Bowel Sounds Present, Soft, Non Tender, Non-Distended, No Hepato- splenomegaly Extremities: No edema, No Calf Tenderness Neurological: - - right facial droop. flacid on right. Psych/Mental Status: Normal Affect, Appropriate Laboratory Results 06/01/17 05:30: WBC 16.4 H, RBC 4.88, Hgb 15.6, Hct 44.9, MCV 92.0, MCH 32.0, MCHC 34.7, RDW 12.9, RDW Differential 43.0, Plt Count 336, MPV 9.2 06/01/17 05:30: Sodium 135 L, Potassium 4.1, Chloride 103, Carbon Dioxide 23.0, Anion Gap 9, BUN 28 H, Creatinine 0.92, Estim Creat Clear Calc 113.64, Est GFR ( MDRD) Af Amer 115, Est GFR (MDRD) Non-Af 95, BUN/Creatinine Ratio 30.4 H, Glucose 105, Calcium 9.2, Phosphorus 3.8, Magnesium 2.3 06/01/17 13:00: Urine Color Yellow, Urine Clarity Clear, Urine pH 6.0, Ur Specific [place] 1.025, Urine Protein 30 H, Urine Glucose (UA) Normal, Urine Ketones Negative, Urine Occult Blood Negative, Urine Nitrite Negative, Urine Bilirubin 1 H, Urine Urobilinogen 1 H, Ur Leukocyte Esterase 25 H, Urine RBC 0 SEEN, Urine WBC 0-5 SEEN, Ur Squamous Epith Cells 0 SEEN, Urine Bacteria RARE, Urine Mucus 1+ Current Medications Acetaminophen (Tylenol) 650 mg PO Q4H PRN PRN PRN Reason: Headache/Temp>99F Last Admin: 06/01/17 09:31 Dose: 650 mg Aspirin (Ecotrin) 81 mg PO DAILY@0800 [facility] Last Admin: 06/01/17 08:03 Dose: 81 mg Atorvastatin Calcium (Lipitor) 80 mg PO QHS [facility] Last Admin: 05/31/17 19:59 Dose: 80 mg Bisacodyl (Dulcolax) 10 mg RECTAL .PRN X 1 PRN PRN Reason: Constipation Clopidogrel Bisulfate (Plavix) 75 mg PO DAILY [facility] Last Admin: 06/01/17 08:02 Dose: 75 mg Emollient Ointment (Eucerin Intensive Repair) 1 applic TOPICAL QHS [facility] PRN Reason: Protocol Enoxaparin Sodium (Lovenox) 40 mg SC DAILY@0600 [facility] Last Admin: 06/01/17 05:26 Dose: 40 mg Escitalopram Oxalate (Lexapro) 10 mg PO DAILY [facility] Last Admin: 06/01/17 08:02 Dose: 10 mg Magnesium Hydroxide (Milk Of Magnesia) 30 ml PO .PRN X 1 PRN PRN Reason: Constipation Metoprolol Succinate (Toprol Xl (Beta Luis Fernando)) 25 mg PO DAILY [facility] Last Admin: 06/01/17 08:03 Dose: 25 mg Nystatin (Nystatin) 500,000 unit PO 4X/DAY [facility] Last Admin: 06/01/17 14:07 Dose: 500,000 unit Quetiapine Fumarate (Seroquel) 25 mg PO DAILY@2000 [facility] Senna/Docusate Sodium (Senokot-S, Tammy-Colace) 2 tablet PO BID [facility] Last Admin: 06/01/17 08:03 Dose: 2 tablet Medical Necessity - Tobacco Use Smoking Status: Heavy Smoker (>10/day) Tobacco Use: Cigarettes Assessment/Plan 1. Acute left MCA stroke * This is per Dr. Milian's interpretation. Given patient's history certainly is concerning as well. * Confirmed stroke on MRI with an acute stroke to the left frontal temporal and parietal lobes secondary to left internal carotid occlusion * Continue aspirin and Plavix * Unknown time of onset as patient was noted to be confused today therefore unfortunate on the window for TPA. * Patient will require rehab upon discharge. Given the patient's acute stroke, is feeling by neurology that the patient should not travel back to [place]. Currently awaiting precertification for the patient to go to the inpatient rehab unit here. . * Echocardiogram showed ejection fraction of 65% but no shunt was visualized. 2. Coronary artery disease * No ischemic changes on EKG * Continue with Plavix and metoprolol. 3. DVT prophylaxis with Lovenox Code Visit Inpatient E&M: 13333 Subs Hosp L2
[2017-06-01] MEDS: QUEtiapine 25 MG Tablet PO (19:50)
[2017-06-01] MEDS: Atorvastatin Calcium 80 MG Tablet PO (19:50)
[2017-06-01 21:21] VITALS: BP 130/81; PULSE 64; RESP 18; TEMP 36.9; O2SAT 94
--- NOTE | 2017-06-02 01:19 | NURSING ---
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
[2017-06-02 01:30] VITALS: BMI 30.2
[2017-06-02] MEDS: Enoxaparin 40 MG/0.4 ML Syringe SC (05:01)
[2017-06-02 10:00] VITALS: BP 131/95; PULSE 75; RESP 16; TEMP 36.8; O2SAT 92
[2017-06-02] MEDS: NYSTATIN 500,000 UNIT/5 ML UDC 500000 UNIT PO ×3 (10:16→20:04)
[2017-06-02] MEDS: Clopidogrel Bisulfate 75 MG Tablet PO (10:16)
[2017-06-02] MEDS: Aspirin E.C. 81 MG Tablet PO (10:16)
[2017-06-02] MEDS: Escitalopram Oxalate 10 MG Tablet PO (10:16)
[2017-06-02] MEDS: Senna/Docusate Sodium 1 Tablet 2 TABLET PO ×2 (10:17→20:04)
[2017-06-02 10:21] VITALS: BP 131/95; PULSE 75
[2017-06-02] MEDS: Metoprolol(XL)Succ 25 MG Tablet PO (10:21)
--- NOTE | 2017-06-02 10:27 | PCM.PN.NEU ---
Subjective: Patient seen and examined. Complaining of a head this morning, he denies any blurry vision or double vision. Continues to have right sided weakness. Tolerating therapy. According to the staff he slept well during the night no issues with screaming or attempting to get out of the bed. - Physical Exam General: Alert, Oriented x3, Cooperative HEENT: Atraumatic, PERRLA, EOMI, Normocephalic Neck: Supple, No JVD, Negative Carotid Bruits Lungs: Clear to auscultation, Normal air movement Cardiovascular: Regular rate, No murmurs Abdomen: Bowel Sounds Present, Soft, Non Tender Extremities: No edema, Capillary Refill Less than 3 Seconds Skin: No rashes, No breakdown Musculoskeletal: No Tenderness to Palpation of Joints or Extremities Neurological: Cranial nerves II-XII grossly intact, Slurred Speech, - - Right arm and leg is flaccid Psych/Mental Status: Normal Affect, Appropriate, Alert and oriented to time, place, person, mood and affect Vital Signs Temp Pulse Resp BP Pulse Ox 98.4 F 75 18 131/95 H 94 06/01/17 21:21 06/02/17 10:21 06/01/17 21:21 06/02/17 10:21 06/01/17 21:21 Oxygen Delivery Method Room Air Weight: 102 kg Body Mass Index (BMI) 30.2 Finger Stick Blood Glucose 83 Intake and Output for Last 24 Hours 05/31/17 06/01/17 06/02/17 23:59 23:59 23:59 Intake Total 200 / 200 Output Total 121 / 121 225 / 225 Balance 79 / 79 -225 / -225 Laboratory Tests Past 24 Hrs 06/01/17 13:00 Urine Color Yellow Urine Clarity Clear Urine pH 6.0 Ur Specific [place] 1.025 Urine Protein 30 H Urine Glucose (UA) Normal Urine Ketones Negative Urine Occult Blood Negative Urine Nitrite Negative Urine Bilirubin 1 H Urine Urobilinogen 1 H Ur Leukocyte Esterase 25 H Urine RBC 0 SEEN Urine WBC 0-5 SEEN Ur Squamous Epith Cells 0 SEEN Urine Bacteria RARE Urine Mucus 1+ Active Medications Acetaminophen (Tylenol) 650 mg PO Q4H PRN PRN PRN Reason: Headache/Temp>99F Last Admin: 06/01/17 09:31 Dose: 650 mg Aspirin (Ecotrin) 81 mg PO DAILY@0800 [facility] Last Admin: 06/02/17 10:16 Dose: 81 mg Atorvastatin Calcium (Lipitor) 80 mg PO QHS [facility] Last Admin: 06/01/17 19:50 Dose: 80 mg Bisacodyl (Dulcolax) 10 mg RECTAL .PRN X 1 PRN PRN Reason: Constipation Clopidogrel Bisulfate (Plavix) 75 mg PO DAILY [facility] Last Admin: 06/02/17 10:16 Dose: 75 mg Emollient Ointment (Eucerin Intensive Repair) 1 applic TOPICAL QHS [facility] PRN Reason: Protocol Last Admin: 06/01/17 19:51 Dose: 1 applic Enoxaparin Sodium (Lovenox) 40 mg SC DAILY@0600 [facility] Last Admin: 06/02/17 05:01 Dose: 40 mg Escitalopram Oxalate (Lexapro) 10 mg PO DAILY [facility] Last Admin: 06/02/17 10:16 Dose: 10 mg Magnesium Hydroxide (Milk Of Magnesia) 30 ml PO .PRN X 1 PRN PRN Reason: Constipation Metoprolol Succinate (Toprol Xl (Beta Luis Fernando)) 25 mg PO DAILY [facility] Last Admin: 06/02/17 10:21 Dose: 25 mg Nystatin (Nystatin) 500,000 unit PO 4X/DAY [facility] Last Admin: 06/02/17 10:16 Dose: 500,000 unit Quetiapine Fumarate (Seroquel) 25 mg PO DAILY@2000 [facility] Last Admin: 06/01/17 19:50 Dose: 25 mg Senna/Docusate Sodium (Senokot-S, Tammy-Colace) 2 tablet PO BID [facility] Last Admin: 06/02/17 10:17 Dose: 2 tablet Medical Necessity - Tobacco Use Smoking Status: Heavy Smoker (>10/day) Tobacco Use: Cigarettes Assessment/Plan Debility due to 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 Debility includes right hemiparesis and neglect as well as hemianopsia and receptive aphasia. Of rehab is restorationist of prior level of functional independence Plan: Therapy for gait and balance Occupational Therapy for ADLs Speech therapy Pressure is currently controlled, continue to monitor Aspirin and Plavix for now Statin therapy Bowel protocol DVT prophylaxis: Lovenox continue smoking cessation Seroquel at HS
--- NOTE | 2017-06-02 10:30 | PN.NEURO_ITS ---
Subjective: Patient seen and examined. Complaining of a head this morning, he denies any blurry vision or double vision. Continues to have right sided weakness. Tolerating therapy. According to the staff he slept well during the night no issues with screaming or attempting to get out of the bed. - Physical Exam General: Alert, Oriented x3, Cooperative HEENT: Atraumatic, PERRLA, EOMI, Normocephalic Neck: Supple, No JVD, Negative Carotid Bruits Lungs: Clear to auscultation, Normal air movement Cardiovascular: Regular rate, No murmurs Abdomen: Bowel Sounds Present, Soft, Non Tender Extremities: No edema, Capillary Refill Less than 3 Seconds Skin: No rashes, No breakdown Musculoskeletal: No Tenderness to Palpation of Joints or Extremities Neurological: Cranial nerves II-XII grossly intact, Slurred Speech, - - Right arm and leg is flaccid Psych/Mental Status: Normal Affect, Appropriate, Alert and oriented to time, place, person, mood and affect Vital Signs Temp Pulse Resp BP Pulse Ox 98.4 F 75 18 131/95 H 94 06/01/17 21:21 06/02/17 10:21 06/01/17 21:21 06/02/17 10:21 06/01/17 21:21 Oxygen Delivery Method Room Air Weight: 102 kg Body Mass Index (BMI) 30.2 Finger Stick Blood Glucose 83 Intake and Output for Last 24 Hours 05/31/17 06/01/17 06/02/17 23:59 23:59 23:59 Intake Total 200 / 200 Output Total 121 / 121 225 / 225 Balance 79 / 79 -225 / -225 Laboratory Tests Past 24 Hrs 06/01/17 13:00 Urine Color Yellow Urine Clarity Clear Urine pH 6.0 Ur Specific [employer] 1.025 Urine Protein 30 H Urine Glucose (UA) Normal Urine Ketones Negative Urine Occult Blood Negative Urine Nitrite Negative Urine Bilirubin 1 H Urine Urobilinogen 1 H Ur Leukocyte Esterase 25 H Urine RBC 0 SEEN Urine WBC 0-5 SEEN Ur Squamous Epith Cells 0 SEEN Urine Bacteria RARE Urine Mucus 1+ Active Medications Acetaminophen (Tylenol) 650 mg PO Q4H PRN PRN PRN Reason: Headache/Temp>99F Last Admin: 06/01/17 09:31 Dose: 650 mg Aspirin (Ecotrin) 81 mg PO DAILY@0800 [facility] Last Admin: 06/02/17 10:16 Dose: 81 mg Atorvastatin Calcium (Lipitor) 80 mg PO QHS [facility] Last Admin: 06/01/17 19:50 Dose: 80 mg Bisacodyl (Dulcolax) 10 mg RECTAL .PRN X 1 PRN PRN Reason: Constipation Clopidogrel Bisulfate (Plavix) 75 mg PO DAILY [facility] Last Admin: 06/02/17 10:16 Dose: 75 mg Emollient Ointment (Eucerin Intensive Repair) 1 applic TOPICAL QHS [facility] PRN Reason: Protocol Last Admin: 06/01/17 19:51 Dose: 1 applic Enoxaparin Sodium (Lovenox) 40 mg SC DAILY@0600 [facility] Last Admin: 06/02/17 05:01 Dose: 40 mg Escitalopram Oxalate (Lexapro) 10 mg PO DAILY [facility] Last Admin: 06/02/17 10:16 Dose: 10 mg Magnesium Hydroxide (Milk Of Magnesia) 30 ml PO .PRN X 1 PRN PRN Reason: Constipation Metoprolol Succinate (Toprol Xl (Beta Luis Fernando)) 25 mg PO DAILY [facility] Last Admin: 06/02/17 10:21 Dose: 25 mg Nystatin (Nystatin) 500,000 unit PO 4X/DAY [facility] Last Admin: 06/02/17 10:16 Dose: 500,000 unit Quetiapine Fumarate (Seroquel) 25 mg PO DAILY@2000 [facility] Last Admin: 06/01/17 19:50 Dose: 25 mg Senna/Docusate Sodium (Senokot-S, Tammy-Colace) 2 tablet PO BID [facility] Last Admin: 06/02/17 10:17 Dose: 2 tablet Medical Necessity - Tobacco Use Smoking Status: Heavy Smoker (>10/day) Tobacco Use: Cigarettes Assessment/Plan Debility due to 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 Debility includes right hemiparesis and neglect as well as hemianopsia and receptive aphasia. Of rehab is buddhist of prior level of functional independence Plan: Therapy for gait and balance Occupational Therapy for ADLs Speech therapy Pressure is currently controlled, continue to monitor Aspirin and Plavix for now Statin therapy Bowel protocol DVT prophylaxis: Lovenox continue smoking cessation Seroquel at HS
[2017-06-02] MEDS: Acetaminophen 325 MG Tablet 650 MG PO ×2 (11:02→18:09)
[2017-06-02 17:00] VITALS: BMI 30.2
[2017-06-02] MEDS: QUEtiapine 25 MG Tablet PO (20:03)
[2017-06-02] MEDS: Atorvastatin Calcium 80 MG Tablet PO (20:04)
[2017-06-02 20:14] VITALS: BP 139/81; PULSE 91; RESP 18; TEMP 36.8; O2SAT 94
[2017-06-03 02:27] VITALS: BMI 30.2
--- NOTE | 2017-06-03 03:08 | NURSING ---
Reviewed and agree with REPAIRER PUMP documentation and FIMS charting.
[2017-06-03] MEDS: Enoxaparin 40 MG/0.4 ML Syringe SC (05:16)
[2017-06-03 07:34] VITALS: BP 122/93; PULSE 76; RESP 18; TEMP 36.9; O2SAT 98
[2017-06-03] MEDS: Clopidogrel Bisulfate 75 MG Tablet PO (07:52)
[2017-06-03] MEDS: NYSTATIN 500,000 UNIT/5 ML UDC 500000 UNIT PO (07:52)
[2017-06-03] MEDS: Escitalopram Oxalate 10 MG Tablet PO (07:52)
[2017-06-03] MEDS: Aspirin E.C. 81 MG Tablet PO (07:52)
[2017-06-03 07:53] VITALS: PULSE 82
[2017-06-03] MEDS: Metoprolol(XL)Succ 25 MG Tablet PO (07:53)
[2017-06-03 13:27] VITALS: BMI 30.2
--- NOTE | 2017-06-03 13:43 | CASEMGMT ---
Insurance Clinical update faxed to insurance. Will await continued stay determination. Auth # [id number] NILSON Zafar
[2017-06-03 20:42] VITALS: BP 119/81; PULSE 87; RESP 16; TEMP 36.9; O2SAT 96
[2017-06-03] MEDS: Atorvastatin Calcium 80 MG Tablet PO (20:44)
[2017-06-03] MEDS: QUEtiapine 25 MG Tablet PO (20:44)
[2017-06-03] MEDS: Senna/Docusate Sodium 1 Tablet 2 TABLET PO (20:44)
[2017-06-04] MEDS: Enoxaparin 40 MG/0.4 ML Syringe SC (05:23)
[2017-06-04 08:30] VITALS: BP 123/90; PULSE 83; RESP 16; TEMP 37; O2SAT 92
[2017-06-04] MEDS: Escitalopram Oxalate 10 MG Tablet PO (08:49)
[2017-06-04] MEDS: Clopidogrel Bisulfate 75 MG Tablet PO (08:49)
[2017-06-04] MEDS: Acetaminophen 325 MG Tablet 650 MG PO (08:49)
[2017-06-04] MEDS: Senna/Docusate Sodium 1 Tablet 2 TABLET PO (08:49)
[2017-06-04] MEDS: Aspirin E.C. 81 MG Tablet PO (08:49)
[2017-06-04 09:01] VITALS: PULSE 77
[2017-06-04] MEDS: Metoprolol(XL)Succ 25 MG Tablet PO (09:01)
[2017-06-04 11:03] VITALS: BMI 30.2
[2017-06-04 20:03] VITALS: BP 128/73; PULSE 80; RESP 16; TEMP 37.2; O2SAT 94
[2017-06-04] MEDS: QUEtiapine 25 MG Tablet PO (20:10)
[2017-06-04] MEDS: Atorvastatin Calcium 80 MG Tablet PO (22:55)
[2017-06-05] MEDS: Acetaminophen 325 MG Tablet 650 MG PO ×2 (03:15→20:20)
[2017-06-05 05:00] VITALS: BMI 30.2
[2017-06-05] MEDS: Enoxaparin 40 MG/0.4 ML Syringe SC (05:52)
[2017-06-05 07:33] VITALS: BP 130/82; PULSE 95; RESP 16; TEMP 36.8; O2SAT 95
[2017-06-05 07:35] VITALS: PULSE 95
[2017-06-05] MEDS: Clopidogrel Bisulfate 75 MG Tablet PO (07:35)
[2017-06-05] MEDS: Metoprolol(XL)Succ 25 MG Tablet PO (07:35)
[2017-06-05] MEDS: Escitalopram Oxalate 10 MG Tablet PO (07:35)
[2017-06-05] MEDS: Aspirin E.C. 81 MG Tablet PO (07:35)
--- NOTE | 2017-06-05 11:46 | PCM.PN.HOSP ---
Subjective: has improved movement of right leg. still flaccid in RUE, but now experiencing tingling. Vitals/I&O's: Vital Signs Temp Pulse Resp BP Pulse Ox 36.8 C 95 16 130/82 H 95 06/05/17 07:33 06/05/17 07:35 06/05/17 07:33 06/05/17 07:33 06/05/17 07:33 Oxygen Delivery Method Room Air Weight: 102 kg Body Mass Index (BMI) 30.2 Finger Stick Blood Glucose 83 Intake and Output for Last 24 Hours 06/03/17 06/04/17 06/05/17 23:59 23:59 23:59 Intake Total 480 / 480 380 / 380 240 / 240 Balance 480 / 480 380 / 380 240 / 240 General: Alert, Cooperative, No apparent distress HEENT: Atraumatic, Normocephalic Neurological: - - left facial drop. muscle strength 4/5 in RLE, 0/5 in RUE Microbiology Past 72 Hours 06/01/17 13:00 Urine, Catheterized Urine Culture - Final Culture exhibits no growth. Current Medications Acetaminophen (Tylenol) 650 mg PO Q4H PRN PRN PRN Reason: Headache/Temp>99F Last Admin: 06/05/17 03:15 Dose: 650 mg Aspirin (Ecotrin) 81 mg PO DAILY@0800 [facility] Last Admin: 06/05/17 07:35 Dose: 81 mg Atorvastatin Calcium (Lipitor) 80 mg PO QHS [facility] Last Admin: 06/04/17 22:55 Dose: 80 mg Bisacodyl (Dulcolax) 10 mg RECTAL .PRN X 1 PRN PRN Reason: Constipation Clopidogrel Bisulfate (Plavix) 75 mg PO DAILY [facility] Last Admin: 06/05/17 07:35 Dose: 75 mg Emollient Ointment (Eucerin Intensive Repair) 1 applic TOPICAL QHS [facility] PRN Reason: Protocol Last Admin: 06/04/17 22:56 Dose: 1 applic Enoxaparin Sodium (Lovenox) 40 mg SC DAILY@0600 [facility] Last Admin: 06/05/17 05:52 Dose: 40 mg Escitalopram Oxalate (Lexapro) 10 mg PO DAILY [facility] Last Admin: 06/05/17 07:35 Dose: 10 mg Magnesium Hydroxide (Milk Of Magnesia) 30 ml PO .PRN X 1 PRN PRN Reason: Constipation Metoprolol Succinate (Toprol Xl (Beta Luis Fernando)) 25 mg PO DAILY [facility] Last Admin: 06/05/17 07:35 Dose: 25 mg Quetiapine Fumarate (Seroquel) 25 mg PO DAILY@1999 [facility] Last Admin: 06/04/17 20:10 Dose: 25 mg Senna/Docusate Sodium (Senokot-S, Tammy-Colace) 2 tablet PO BID [facility] Last Admin: 06/05/17 07:34 Dose: Not Given Medical Necessity - Tobacco Use Smoking Status: Heavy Smoker (>10/day) Tobacco Use: Cigarettes Assessment/Plan 1. Acute left MCA stroke This is per Dr. Milian's interpretation. Given patient's history certainly is concerning as well. Confirmed stroke on MRI with an acute stroke to the left frontal temporal and parietal lobes secondary to left internal carotid occlusion Continue aspirin and Plavix Unknown time of onset as patient was noted to be confused today therefore unfortunate on the window for TPA. Patient will require rehab upon discharge. Given the patient's acute stroke, is feeling by neurology that the patient should not travel back to [place]. Currently awaiting precertification for the patient to go to the inpatient rehab unit here. . Echocardiogram showed ejection fraction of 65% but no shunt was visualized. Improvement in RLE continue with rehab services 2. Coronary artery disease No ischemic changes on EKG Continue with Plavix and metoprolol. 3. DVT prophylaxis with Lovenox DW patient's at bedside. Plan, eventually, is to get back to [place]. She states it 500 miles away. Ideally, would like to see patient be able to perform own ADLs before making such a long trip. Code Visit Inpatient E&M: [id number] [facility] L[facility]
--- NOTE | 2017-06-05 11:49 | PN_ITS ---
Subjective: has improved movement of right leg. still flaccid in RUE, but now experiencing tingling. Vitals/I&O's: Vital Signs Temp Pulse Resp BP Pulse Ox 36.8 C 95 16 130/82 H 95 06/05/17 07:33 06/05/17 07:35 06/05/17 07:33 06/05/17 07:33 06/05/17 07:33 Oxygen Delivery Method Room Air Weight: 102 kg Body Mass Index (BMI) 30.2 Finger Stick Blood Glucose 83 Intake and Output for Last 24 Hours 06/03/17 06/04/17 06/05/17 23:59 23:59 23:59 Intake Total 480 / 480 380 / 380 240 / 240 Balance 480 / 480 380 / 380 240 / 240 General: Alert, Cooperative, No apparent distress HEENT: Atraumatic, Normocephalic Neurological: - - left facial drop. muscle strength 4/5 in RLE, 0/5 in RUE Microbiology Past 72 Hours 06/01/17 13:00 Urine, Catheterized Urine Culture - Final Culture exhibits no growth. Current Medications Acetaminophen (Tylenol) 650 mg PO Q4H PRN PRN PRN Reason: Headache/Temp>99F Last Admin: 06/05/17 03:15 Dose: 650 mg Aspirin (Ecotrin) 81 mg PO DAILY@0800 [facility] Last Admin: 06/05/17 07:35 Dose: 81 mg Atorvastatin Calcium (Lipitor) 80 mg PO QHS [facility] Last Admin: 06/04/17 22:55 Dose: 80 mg Bisacodyl (Dulcolax) 10 mg RECTAL .PRN X 1 PRN PRN Reason: Constipation Clopidogrel Bisulfate (Plavix) 75 mg PO DAILY [facility] Last Admin: 06/05/17 07:35 Dose: 75 mg Emollient Ointment (Eucerin Intensive Repair) 1 applic TOPICAL QHS [facility] PRN Reason: Protocol Last Admin: 06/04/17 22:56 Dose: 1 applic Enoxaparin Sodium (Lovenox) 40 mg SC DAILY@0600 [facility] Last Admin: 06/05/17 05:52 Dose: 40 mg Escitalopram Oxalate (Lexapro) 10 mg PO DAILY [facility] Last Admin: 06/05/17 07:35 Dose: 10 mg Magnesium Hydroxide (Milk Of Magnesia) 30 ml PO .PRN X 1 PRN PRN Reason: Constipation Metoprolol Succinate (Toprol Xl (Beta Luis Fernando)) 25 mg PO DAILY [facility] Last Admin: 06/05/17 07:35 Dose: 25 mg Quetiapine Fumarate (Seroquel) 25 mg PO DAILY@1999 [facility] Last Admin: 06/04/17 20:10 Dose: 25 mg Senna/Docusate Sodium (Senokot-S, Tammy-Colace) 2 tablet PO BID [facility] Last Admin: 06/05/17 07:34 Dose: Not Given Medical Necessity - Tobacco Use Smoking Status: Heavy Smoker (>10/day) Tobacco Use: Cigarettes Assessment/Plan 1. Acute left MCA stroke * This is per Dr. Milian's interpretation. Given patient's history certainly is concerning as well. * Confirmed stroke on MRI with an acute stroke to the left frontal temporal and parietal lobes secondary to left internal carotid occlusion * Continue aspirin and Plavix * Unknown time of onset as patient was noted to be confused today therefore unfortunate on the window for TPA. * Patient will require rehab upon discharge. Given the patient's acute stroke, is feeling by neurology that the patient should not travel back to [place]. Currently awaiting precertification for the patient to go to the inpatient rehab unit here. . * Echocardiogram showed ejection fraction of 65% but no shunt was visualized. * Improvement in RLE * continue with rehab services 2. Coronary artery disease * No ischemic changes on EKG * Continue with Plavix and metoprolol. 3. DVT prophylaxis with Lovenox DW patient's at bedside. Plan, eventually, is to get back to [place]. She states it 500 miles away. Ideally, would like to see patient be able to perform own ADLs before making such a long trip. Code Visit Inpatient E&M: [id number] [facility] L1
[2017-06-05 12:20] VITALS: BMI 30.2
[2017-06-05 19:55] VITALS: BP 110/78; PULSE 97; RESP 14; TEMP 36.7; O2SAT 96; BMI 30.2
[2017-06-05] MEDS: QUEtiapine 25 MG Tablet PO (20:20)
[2017-06-05] MEDS: Atorvastatin Calcium 80 MG Tablet PO (20:22)
--- NOTE | 2017-06-05 23:05 | NURSING ---
PT SLEEPING SOUNDLY. WAKES TO PHYSICAL AND VERBAL STIMULI. PT STATES THAT HIS MELCHOR HIS DECREASED FROM A #8 TO A #6 AND THAT IT ALSO INCLUDES GENERALIZED BODY ACHES. PT IS ORIENTED TO PERSON AND TIME. PT FOLLOWS SIMPLE COMMANDS, BUT IS VERY SLEEPY. PT ABLE TO TELL ME NUMBER OF FINGERS HELD UP IN FRONT OF HIM. PT'S R PUPIL IS 6MM AND L PUPIL IS 4 MM. SKIN IS WARM AND DRY. PT HAS FEELING IN ALL EXTREMITIES.
--- NOTE | 2017-06-05 23:25 | NURSING ---
DR HUMPHREY NOTIFIED THAT PT HAS A MELCHOR AND GENERALIZED BODY ACHES THIS EVENING AND CURRENT PUPIL MEASUREMENTS. INFORMED THAT R PUPIL HAS BEEN SLIGHTLY LARGER THAN L PUPIL ON PRIOR SHIFTS. NO NEW ORDERS GIVEN AT THIS TIME AND INFORMED TO NOTIFY HIM OF ANY ADDITIONAL CHANGES.
--- NOTE | 2017-06-06 02:19 | NURSING ---
REVIEWED AND AGREE WITH STENCIL CUTTER'S FIM AND HANDOFF CHARTING.
[2017-06-06] MEDS: Acetaminophen 325 MG Tablet 650 MG PO (05:25)
[2017-06-06] MEDS: Enoxaparin 40 MG/0.4 ML Syringe SC (05:26)
[2017-06-06 07:06] VITALS: BP 125/80; PULSE 69; RESP 16; TEMP 36.4; O2SAT 98
[2017-06-06] MEDS: Aspirin E.C. 81 MG Tablet PO (08:08)
[2017-06-06] MEDS: Clopidogrel Bisulfate 75 MG Tablet PO (08:08)
[2017-06-06] MEDS: Senna/Docusate Sodium 1 Tablet 2 TABLET PO ×2 (08:08→19:23)
[2017-06-06] MEDS: Escitalopram Oxalate 10 MG Tablet PO (08:08)
[2017-06-06 08:09] VITALS: PULSE 69
[2017-06-06] MEDS: Metoprolol(XL)Succ 25 MG Tablet PO (08:09)
--- NOTE | 2017-06-06 09:34 | PCM.PN.NEU ---
Subjective: Staffed in team meeting. at bedside. Questions answered. With Physical therapy, he is moderate assist with standing and pivoting, getting on and off the toilet. He is able to walk 10 feet using the hand rail with the assist of two people. The strength on his left side is improving and he is getting stronger. He still has no movement on his right side. With Occupational therapy, he requires max assist to do all personal care, bathing, and toileting. With Speech therapy, has trouble with inattention, and impulsiveness, once he focus he is able to do the task at hand with 85 to 90% accuracy. His speech continues to be slurried, working on oral exercises to help with his word articulation. He is tolerating a regular diet without any issues, just need reminders to eat more slowly. With Nursing, he did have a headache over night, but is feeling much better after receiving medication. Will re-team again on Tuesday of next week, patient was approved more time, next update will be 06/13/17. - Physical Exam General: Alert, Oriented x3, Cooperative HEENT: Atraumatic, PERRLA, EOMI, Normocephalic Neck: Supple, No JVD, Negative Carotid Bruits Lungs: Clear to auscultation, Normal air movement Cardiovascular: Regular rate, No murmurs Abdomen: Bowel Sounds Present, Soft, Non Tender Extremities: No edema, Capillary Refill Less than 3 Seconds Skin: No rashes, No breakdown Musculoskeletal: No Tenderness to Palpation of Joints or Extremities Neurological: Cranial nerves II-XII grossly intact Psych/Mental Status: Normal Affect, Appropriate Vital Signs Temp Pulse Resp BP Pulse Ox 97.6 F L 69 16 125/80 H 98 06/06/17 07:06 06/06/17 08:09 06/06/17 07:06 06/06/17 07:06 06/06/17 07:06 Oxygen Delivery Method Room Air Weight: 102 kg Body Mass Index (BMI) 30.2 Finger Stick Blood Glucose 83 Intake and Output for Last 24 Hours 06/04/17 06/05/17 06/06/17 23:59 23:59 23:59 Intake Total 380 / 380 240 / 240 240 / 240 Balance 380 / 380 240 / 240 240 / 240 Microbiology Past 72 Hours 06/01/17 13:00 Urine Culture - Final Urine, Catheterized Culture exhibits no growth. Active Medications Acetaminophen (Tylenol) 650 mg PO Q4H PRN PRN PRN Reason: Headache/Temp>99F Last Admin: 06/06/17 05:25 Dose: 650 mg Aspirin (Ecotrin) 81 mg PO DAILY@0800 [facility] Last Admin: 06/06/17 08:08 Dose: 81 mg Atorvastatin Calcium (Lipitor) 80 mg PO QHS [facility] Last Admin: 06/05/17 20:22 Dose: 80 mg Bisacodyl (Dulcolax) 10 mg RECTAL .PRN X 1 PRN PRN Reason: Constipation Clopidogrel Bisulfate (Plavix) 75 mg PO DAILY [facility] Last Admin: 06/06/17 08:08 Dose: 75 mg Emollient Ointment (Eucerin Intensive Repair) 1 applic TOPICAL QHS [facility] PRN Reason: Protocol Last Admin: 06/05/17 20:21 Dose: 1 applic Enoxaparin Sodium (Lovenox) 40 mg SC DAILY@0600 [facility] Last Admin: 06/06/17 05:26 Dose: 40 mg Escitalopram Oxalate (Lexapro) 10 mg PO DAILY [facility] Last Admin: 06/06/17 08:08 Dose: 10 mg Magnesium Hydroxide (Milk Of Magnesia) 30 ml PO .PRN X 1 PRN PRN Reason: Constipation Metoprolol Succinate (Toprol Xl (Beta Luis Fernando)) 25 mg PO DAILY [facility] Last Admin: 06/06/17 08:09 Dose: 25 mg Quetiapine Fumarate (Seroquel) 25 mg PO DAILY@2000 [facility] Last Admin: 06/05/17 20:20 Dose: 25 mg Senna/Docusate Sodium (Senokot-S, Tammy-Colace) 2 tablet PO BID [facility] Last Admin: 06/06/17 08:08 Dose: 2 tablet Medical Necessity - Tobacco Use Smoking Status: Heavy Smoker (>10/day) Tobacco Use: Cigarettes Assessment/Plan Debility due to 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 Debility includes right hemiparesis and neglect as well as hemianopsia and receptive aphasia. Of rehab is confucianism of prior level of functional independence Plan: Therapy for gait and balance Occupational Therapy for ADLs Speech therapy Pressure is currently controlled, continue to monitor Aspirin and Plavix for now Statin therapy Bowel protocol DVT prophylaxis: Lovenox continue smoking cessation Seroquel at
--- NOTE | 2017-06-06 09:49 | PN.NEURO_ITS ---
Subjective: Staffed in team meeting. at bedside. Questions answered. With Physical therapy, he is moderate assist with standing and pivoting, getting on and off the toilet. He is able to walk 10 feet using the hand rail with the assist of two people. The strength on his left side is improving and he is getting stronger. He still has no movement on his right side. With Occupational therapy , he requires max assist to do all personal care, bathing, and toileting. With Speech therapy, has trouble with inattention, and impulsiveness, once he focus he is able to do the task at hand with 85 to 90% accuracy. His speech continues to be slurried, working on oral exercises to help with his word articulation. He is tolerating a regular diet without any issues, just need reminders to eat more slowly. With Nursing, he did have a headache over night, but is feeling much better after receiving medication. Will re-team again on Tuesday of next week, patient was approved more time, next update will be 06/13/17. - Physical Exam General: Alert, Oriented x3, Cooperative HEENT: Atraumatic, PERRLA, EOMI, Normocephalic Neck: Supple, No JVD, Negative Carotid Bruits Lungs: Clear to auscultation, Normal air movement Cardiovascular: Regular rate, No murmurs Abdomen: Bowel Sounds Present, Soft, Non Tender Extremities: No edema, Capillary Refill Less than 3 Seconds Skin: No rashes, No breakdown Musculoskeletal: No Tenderness to Palpation of Joints or Extremities Neurological: Cranial nerves II-XII grossly intact Psych/Mental Status: Normal Affect, Appropriate Vital Signs Temp Pulse Resp BP Pulse Ox 97.6 F L 69 16 125/80 H 98 06/06/17 07:06 06/06/17 08:09 06/06/17 07:06 06/06/17 07:06 06/06/17 07:06 Oxygen Delivery Method Room Air Weight: 102 kg Body Mass Index (BMI) 30.2 Finger Stick Blood Glucose 83 Intake and Output for Last 24 Hours 06/04/17 06/05/17 06/06/17 23:59 23:59 23:59 Intake Total 380 / 380 240 / 240 240 / 240 Balance 380 / 380 240 / 240 240 / 240 Microbiology Past 72 Hours 06/01/17 13:00 Urine Culture - Final Urine, Catheterized Culture exhibits no growth. Active Medications Acetaminophen (Tylenol) 650 mg PO Q4H PRN PRN PRN Reason: Headache/Temp>99F Last Admin: 06/06/17 05:25 Dose: 650 mg Aspirin (Ecotrin) 81 mg PO DAILY@0800 [facility] Last Admin: 06/06/17 08:08 Dose: 81 mg Atorvastatin Calcium (Lipitor) 80 mg PO QHS [facility] Last Admin: 06/05/17 20:22 Dose: 80 mg Bisacodyl (Dulcolax) 10 mg RECTAL .PRN X 1 PRN PRN Reason: Constipation Clopidogrel Bisulfate (Plavix) 75 mg PO DAILY [facility] Last Admin: 06/06/17 08:08 Dose: 75 mg Emollient Ointment (Eucerin Intensive Repair) 1 applic TOPICAL QHS [facility] PRN Reason: Protocol Last Admin: 06/05/17 20:21 Dose: 1 applic Enoxaparin Sodium (Lovenox) 40 mg SC DAILY@0600 [facility] Last Admin: 06/06/17 05:26 Dose: 40 mg Escitalopram Oxalate (Lexapro) 10 mg PO DAILY [facility] Last Admin: 06/06/17 08:08 Dose: 10 mg Magnesium Hydroxide (Milk Of Magnesia) 30 ml PO .PRN X 1 PRN PRN Reason: Constipation Metoprolol Succinate (Toprol Xl (Beta Luis Fernando)) 25 mg PO DAILY [facility] Last Admin: 06/06/17 08:09 Dose: 25 mg Quetiapine Fumarate (Seroquel) 25 mg PO DAILY@2000 [facility] Last Admin: 06/05/17 20:20 Dose: 25 mg Senna/Docusate Sodium (Senokot-S, Tammy-Colace) 2 tablet PO BID [facility] Last Admin: 06/06/17 08:08 Dose: 2 tablet Medical Necessity - Tobacco Use Smoking Status: Heavy Smoker (>10/day) Tobacco Use: Cigarettes Assessment/Plan Debility due to 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 Debility includes right hemiparesis and neglect as well as hemianopsia and receptive aphasia. Of rehab is catholic of prior level of functional independence Plan: Therapy for gait and balance Occupational Therapy for ADLs Speech therapy Pressure is currently controlled, continue to monitor Aspirin and Plavix for now Statin therapy Bowel protocol DVT prophylaxis: Lovenox continue smoking cessation Seroquel at
--- NOTE | 2017-06-06 09:50 | NURSING ---
denies any further headaches to dr beard. pateint tolerating therapy well and up in therapy room.
[2017-06-06 11:07] VITALS: BMI 30.2
--- NOTE | 2017-06-06 11:11 | CASEMGMT ---
Insurance Continued stay approved with next update due on 06/13/17. Auth#[id number] Micki DEVINE, ENGINEERING TECHNOLOGY INSTRUCTOR
--- NOTE | 2017-06-06 11:13 | CASEMGMT ---
Team meeting held. Patent present as well as patient spouse. No discharge date set at this time. Patient to continue with further care and treatment on the Inpatient Rehab Unit. Patient approved more time with insurance with next update due on 06/13/17. Patient plans to discharge home with spouse when able. Support given. Will continue to follow. Micki DEVINE, CATTLE DEALER
--- NOTE | 2017-06-06 13:29 | PN_ITS ---
Subjective: Patient is a 41-year-old gentleman admitted to the inpatient rehab unit following an acute left MCA distribution infarct due to left internal carotid artery occlusion Objective: GENERAL: cooperative HEENT: Clear conjunctiva, NECK; supple, normal thyroid, CHEST: Clear to auscultation bilaterally, HEART: Regular S1 S2, no audible murmurs ABDOMEN: soft, non-tender, normoactive bowel sounds, RECTAL: deferred EXTREMITIES: No edema, no clubbing, no cyanosis. FACILITY SERVICE ASSOCIATE: right sided hemiparesis SKIN: No Rash Vitals/I&O's: Vital Signs Temp Pulse Resp BP Pulse Ox 97.6 F L 69 16 125/80 H 98 06/06/17 07:06 06/06/17 08:09 06/06/17 07:06 06/06/17 07:06 06/06/17 07:06 Oxygen Delivery Method Room Air Weight: 102 kg Body Mass Index (BMI) 30.2 Finger Stick Blood Glucose 83 Intake and Output for Last 24 Hours 06/04/17 06/05/17 06/06/17 23:59 23:59 23:59 Intake Total 380 / 380 240 / 240 240 / 240 Balance 380 / 380 240 / 240 240 / 240 Microbiology Past 72 Hours 06/01/17 13:00 Urine, Catheterized Urine Culture - Final Culture exhibits no growth. Current Medications Acetaminophen (Tylenol) 650 mg PO Q4H PRN PRN PRN Reason: Headache/Temp>99F Last Admin: 06/06/17 05:25 Dose: 650 mg Aspirin (Ecotrin) 81 mg PO DAILY@0800 [facility] Last Admin: 06/06/17 08:08 Dose: 81 mg Atorvastatin Calcium (Lipitor) 80 mg PO QHS [facility] Last Admin: 06/05/17 20:22 Dose: 80 mg Bisacodyl (Dulcolax) 10 mg RECTAL .PRN X 1 PRN PRN Reason: Constipation Clopidogrel Bisulfate (Plavix) 75 mg PO DAILY [facility] Last Admin: 06/06/17 08:08 Dose: 75 mg Emollient Ointment (Eucerin Intensive Repair) 1 applic TOPICAL QHS [facility] PRN Reason: Protocol Last Admin: 06/05/17 20:21 Dose: 1 applic Enoxaparin Sodium (Lovenox) 40 mg SC DAILY@0600 [facility] Last Admin: 06/06/17 05:26 Dose: 40 mg Escitalopram Oxalate (Lexapro) 10 mg PO DAILY [facility] Last Admin: 06/06/17 08:08 Dose: 10 mg Magnesium Hydroxide (Milk Of Magnesia) 30 ml PO .PRN X 1 PRN PRN Reason: Constipation Metoprolol Succinate (Toprol Xl (Beta Luis Fernando)) 25 mg PO DAILY [facility] Last Admin: 06/06/17 08:09 Dose: 25 mg Quetiapine Fumarate (Seroquel) 25 mg PO DAILY@1999 [facility] Last Admin: 06/05/17 20:20 Dose: 25 mg Senna/Docusate Sodium (Senokot-S, Tammy-Colace) 2 tablet PO BID [facility] Last Admin: 06/06/17 08:08 Dose: 2 tablet Medical Necessity - Tobacco Use Smoking Status: Heavy Smoker (>10/day) Tobacco Use: Cigarettes Assessment/Plan Patient is a 41-year-old gentleman admitted to the inpatient rehab unit following an 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 Acute left MCA distribution infarct secondary to left carotid artery occlusion: Patient did experience significant debility with right-sided hemiparesis and neglect as well as hemianopsia and receptive aphasia currently being managed on the inpatient rehab unit 2. Hypertension-blood pressure controlled, home medications continued with dose adjustment as needed 3. Dyslipidemia-patient is on statin therapy, continued at home dose 4. Tobacco dependence counseled on cessation, offered nicotine patch for tobacco cravings 5. CAD with previous stent placement on dual antiplatelet therapy 6. Obesity with BMI 30.5 weight loss advised 7. DVT prophylaxis SC Lovenox Code Visit Inpatient E&M: 19351 Subs Hosp L2
[2017-06-06] MEDS: Atorvastatin Calcium 80 MG Tablet PO (19:23)
[2017-06-06] MEDS: QUEtiapine 25 MG Tablet PO (19:23)
[2017-06-06 19:28] VITALS: BP 127/72; PULSE 74; RESP 16; TEMP 36.8; O2SAT 95
[2017-06-06 19:33] VITALS: BMI 30.2
--- NOTE | 2017-06-07 01:49 | NURSING ---
Reviewed and agree with DIRECTOR OF TEACHER EDUCATION documentation and [facility] charting.
[2017-06-07] MEDS: Enoxaparin 40 MG/0.4 ML Syringe SC (05:07)
[2017-06-07] MEDS: Acetaminophen 325 MG Tablet 650 MG PO ×2 (05:09→09:20)
[2017-06-07 07:31] VITALS: BP 116/79; PULSE 87; RESP 16; TEMP 36.9; O2SAT 98
[2017-06-07 07:55] VITALS: PULSE 80
[2017-06-07] MEDS: Clopidogrel Bisulfate 75 MG Tablet PO (07:55)
[2017-06-07] MEDS: Metoprolol(XL)Succ 25 MG Tablet PO (07:55)
[2017-06-07] MEDS: Escitalopram Oxalate 10 MG Tablet PO (07:56)
[2017-06-07] MEDS: Aspirin E.C. 81 MG Tablet PO (07:56)
[2017-06-07] MEDS: Senna/Docusate Sodium 1 Tablet 2 TABLET PO ×2 (07:57→20:25)
--- NOTE | 2017-06-07 11:26 | PN.NEURO_ITS ---
Subjective: Patient seen and examined. No new complaints. Tolerating therapy. Still unable to move his right arm, movement has returned to right lower extremity, using Adebayo-walker, was able to go about 5 feet. Denies any shortness of breath or chest. No issues with GI/. - Physical Exam General: Alert, Oriented x3, Cooperative HEENT: Atraumatic, PERRLA, EOMI, Normocephalic Neck: Supple, No JVD, Negative Carotid Bruits Lungs: Clear to auscultation, Normal air movement Cardiovascular: Regular rate, No murmurs Abdomen: Bowel Sounds Present, Soft, Non Tender Extremities: No edema, Capillary Refill Less than 3 Seconds Skin: No rashes, No breakdown Musculoskeletal: No Tenderness to Palpation of Joints or Extremities Neurological: Cranial nerves II-XII grossly intact Psych/Mental Status: Normal Affect, Appropriate Vital Signs Temp Pulse Resp BP Pulse Ox 98.5 F 80 16 116/79 98 06/07/17 07:31 06/07/17 07:55 06/07/17 07:31 06/07/17 07:31 06/07/17 07:31 Oxygen Delivery Method Room Air Weight: 102 kg Body Mass Index (BMI) 30.2 Finger Stick Blood Glucose 83 Intake and Output for Last 24 Hours 06/05/17 06/06/17 06/07/17 23:59 23:59 23:59 Intake Total 240 / 240 1020 / 1020 220 / 220 Balance 240 / 240 1020 / 1020 220 / 220 Active Medications Acetaminophen (Tylenol) 650 mg PO Q4H PRN PRN PRN Reason: Headache/Temp>99F Last Admin: 06/07/17 09:20 Dose: 650 mg Aspirin (Ecotrin) 81 mg PO DAILY@0800 [facility] Last Admin: 06/07/17 07:56 Dose: 81 mg Atorvastatin Calcium (Lipitor) 80 mg PO QHS [facility] Last Admin: 06/06/17 19:23 Dose: 80 mg Bisacodyl (Dulcolax) 10 mg RECTAL .PRN X 1 PRN PRN Reason: Constipation Clopidogrel Bisulfate (Plavix) 75 mg PO DAILY [facility] Last Admin: 06/07/17 07:55 Dose: 75 mg Emollient Ointment (Eucerin Intensive Repair) 1 applic TOPICAL QHS [facility] PRN Reason: Protocol Last Admin: 06/06/17 19:23 Dose: 1 applic Enoxaparin Sodium (Lovenox) 40 mg SC DAILY@0600 [facility] Last Admin: 06/07/17 05:07 Dose: 40 mg Escitalopram Oxalate (Lexapro) 10 mg PO DAILY [facility] Last Admin: 06/07/17 07:56 Dose: 10 mg Magnesium Hydroxide (Milk Of Magnesia) 30 ml PO .PRN X 1 PRN PRN Reason: Constipation Metoprolol Succinate (Toprol Xl (Beta Luis Fernando)) 25 mg PO DAILY [facility] Last Admin: 06/07/17 07:55 Dose: 25 mg Quetiapine Fumarate (Seroquel) 25 mg PO DAILY@1999 [facility] Last Admin: 06/06/17 19:23 Dose: 25 mg Senna/Docusate Sodium (Senokot-S, Tammy-Colace) 2 tablet PO BID [facility] Last Admin: 06/07/17 07:57 Dose: 2 tablet Medical Necessity - Tobacco Use Smoking Status: Heavy Smoker (>10/day) Tobacco Use: Cigarettes Assessment/Plan Debility due to 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 Debility includes right hemiparesis and neglect as well as hemianopsia and receptive aphasia. Of rehab is [facility] of prior level of functional independence Plan: - Therapy for gait and balance - Occupational Therapy for ADLs - Speech therapy - Pressure is currently controlled, continue to monitor - Aspirin and Plavix for now - Statin therapy - Bowel protocol - DVT prophylaxis: Lovenox - continue smoking cessation - Seroquel at - Hypercoagulation panel
[2017-06-07 15:45] VITALS: BMI 30.2
[2017-06-07] MEDS: QUEtiapine 25 MG Tablet PO (20:25)
[2017-06-07] MEDS: Atorvastatin Calcium 80 MG Tablet PO (20:25)
[2017-06-07 20:32] VITALS: BP 121/64; PULSE 73; RESP 16; TEMP 36.7; O2SAT 99
[2017-06-07 21:00] VITALS: BMI 30.2
--- NOTE | 2017-06-08 01:21 | NURSING ---
Reviewed and agree with HOSPITALITY AMBASSADOR documentation and [facility] charting.
[2017-06-08] MEDS: Enoxaparin 40 MG/0.4 ML Syringe SC (05:15)
[2017-06-08] MEDS: Magnesium Hydroxide 30 ML UDC PO (05:38)
[2017-06-08 07:23] VITALS: BP 126/79; PULSE 103; RESP 17; TEMP 36.8; O2SAT 95
[2017-06-08 07:54] VITALS: PULSE 103
[2017-06-08] MEDS: Clopidogrel Bisulfate 75 MG Tablet PO (07:54)
[2017-06-08] MEDS: Metoprolol(XL)Succ 25 MG Tablet PO (07:54)
[2017-06-08] MEDS: Escitalopram Oxalate 10 MG Tablet PO (07:54)
[2017-06-08] MEDS: Aspirin E.C. 81 MG Tablet PO (07:57)
[2017-06-08 10:11] VITALS: BMI 30.2
--- NOTE | 2017-06-08 10:37 | PCM.PN.HOSP ---
Subjective: Patient seen admitted to some movement in his right lower extremity however there is 0 movement in the right upper extremity Objective: GENERAL: cooperative HEENT: Clear conjunctiva, NECK; supple, normal thyroid, CHEST: Clear to auscultation bilaterally, HEART: Regular S1 S2, no audible murmurs ABDOMEN: soft, non-tender, normoactive bowel sounds, RECTAL: deferred EXTREMITIES: No edema, no clubbing, no cyanosis. ASSISTANT DIRECTOR OF FINANCIAL AID: right sided hemiparesis SKIN: No Rash Vitals/I&O's: Vital Signs Temp Pulse Resp BP Pulse Ox 98.3 F 103 H 17 126/79 H 95 06/08/17 07:23 06/08/17 07:54 06/08/17 07:23 06/08/17 07:23 06/08/17 07:23 Oxygen Delivery Method Room Air Weight: 99.5 kg Body Mass Index (BMI) 30.2 Finger Stick Blood Glucose 83 Intake and Output for Last 24 Hours 06/06/17 06/07/17 06/08/17 23:59 23:59 23:59 Intake Total 1020 / 1020 580 / 580 240 / 240 Balance 1020 / 1020 580 / 580 240 / 240 Laboratory Results 06/07/17 12:57: Factor V Leiden Mutat Pending, Factor VIII Activity Pending, von Willebrand Comment Pending, Intrinsic Factor Ab Pending, Factor II DNA Analysis Pending Current Medications Acetaminophen (Tylenol) 650 mg PO Q4H PRN PRN PRN Reason: Headache/Temp>99F Last Admin: 06/07/17 09:20 Dose: 650 mg Aspirin (Ecotrin) 81 mg PO DAILY@0800 [facility] Last Admin: 06/08/17 07:57 Dose: 81 mg Atorvastatin Calcium (Lipitor) 80 mg PO QHS [facility] Last Admin: 06/07/17 20:25 Dose: 80 mg Bisacodyl (Dulcolax) 10 mg RECTAL .PRN X 1 PRN PRN Reason: Constipation Clopidogrel Bisulfate (Plavix) 75 mg PO DAILY [facility] Last Admin: 06/08/17 07:54 Dose: 75 mg Emollient Ointment (Eucerin Intensive Repair) 1 applic TOPICAL QHS [facility] PRN Reason: Protocol Last Admin: 06/07/17 20:25 Dose: 1 applic Enoxaparin Sodium (Lovenox) 40 mg SC DAILY@0600 [facility] Last Admin: 06/08/17 05:15 Dose: 40 mg Escitalopram Oxalate (Lexapro) 10 mg PO DAILY [facility] Last Admin: 06/08/17 07:54 Dose: 10 mg Magnesium Hydroxide (Milk Of Magnesia) 30 ml PO .PRN X 1 PRN PRN Reason: Constipation Last Admin: 06/08/17 05:38 Dose: 30 ml Metoprolol Succinate (Toprol Xl (Beta Luis Fernando)) 25 mg PO DAILY [facility] Last Admin: 06/08/17 07:54 Dose: 25 mg Quetiapine Fumarate (Seroquel) 25 mg PO DAILY@1999 [facility] Last Admin: 06/07/17 20:25 Dose: 25 mg Senna/Docusate Sodium (Senokot-S, Tammy-Colace) 2 tablet PO BID [facility] Last Admin: 06/07/17 20:25 Dose: 2 tablet Medical Necessity - Tobacco Use Smoking Status: Heavy Smoker (>10/day) Tobacco Use: Cigarettes Assessment/Plan Patient is a 41-year-old gentleman admitted to the inpatient rehab unit following an 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 Acute left MCA distribution infarct secondary to left carotid artery occlusion: Patient did experience significant debility with right-sided hemiparesis and neglect as well as hemianopsia and receptive aphasia currently being managed on the inpatient rehab unit 2. Hypertension-blood pressure controlled, home medications continued with dose adjustment as needed 3. Dyslipidemia-patient is on statin therapy, continued at home dose 4. Tobacco dependence counseled on cessation, offered nicotine patch for tobacco cravings 5. CAD with previous stent placement on dual antiplatelet therapy 6. Obesity with BMI 30.5 weight loss advised 7. DVT prophylaxis SC Lovenox Code Visit Inpatient E&M: 75291 [facility] Hosp L2
--- NOTE | 2017-06-08 16:19 | PCM.PN.NEU ---
Subjective: Patient seen and examined. No acute events overnight, per nursing. Tolerating therapy. Denies any shortness of breath or chest. No issues with GI/. - Physical Exam General: Alert, Oriented x3, Cooperative HEENT: Atraumatic, PERRLA, EOMI, Normocephalic Neck: Supple, No JVD, Negative Carotid Bruits Lungs: Clear to auscultation, Normal air movement Cardiovascular: Regular rate, No murmurs Abdomen: Bowel Sounds Present, Soft, Non Tender Extremities: No edema, Capillary Refill Less than 3 Seconds Skin: No rashes, No breakdown Musculoskeletal: No Tenderness to Palpation of Joints or Extremities Neurological: Cranial nerves II-XII grossly intact Psych/Mental Status: Alert and oriented to time, place, person, mood and affect Vital Signs Temp Pulse Resp BP Pulse Ox 98.3 F 103 H 17 126/79 H 95 06/08/17 07:23 06/08/17 07:54 06/08/17 07:23 06/08/17 07:23 06/08/17 07:23 Oxygen Delivery Method Room Air Weight: 99.5 kg Body Mass Index (BMI) 30.2 Finger Stick Blood Glucose 83 Intake and Output for Last 24 Hours 06/06/17 06/07/17 06/08/17 23:59 23:59 23:59 Intake Total 1020 / 1020 580 / 580 460 / 460 Balance 1020 / 1020 580 / 580 460 / 460 Active Medications Acetaminophen (Tylenol) 650 mg PO Q4H PRN PRN PRN Reason: Headache/Temp>99F Last Admin: 06/07/17 09:20 Dose: 650 mg Aspirin (Ecotrin) 81 mg PO DAILY@0800 [facility] Last Admin: 06/08/17 07:57 Dose: 81 mg Atorvastatin Calcium (Lipitor) 80 mg PO QHS [facility] Last Admin: 06/07/17 20:25 Dose: 80 mg Bisacodyl (Dulcolax) 10 mg RECTAL .PRN X 1 PRN PRN Reason: Constipation Clopidogrel Bisulfate (Plavix) 75 mg PO DAILY [facility] Last Admin: 06/08/17 07:54 Dose: 75 mg Emollient Ointment (Eucerin Intensive Repair) 1 applic TOPICAL QHS [facility] PRN Reason: Protocol Last Admin: 06/07/17 20:25 Dose: 1 applic Enoxaparin Sodium (Lovenox) 40 mg SC DAILY@0600 [facility] Last Admin: 06/08/17 05:15 Dose: 40 mg Escitalopram Oxalate (Lexapro) 10 mg PO DAILY [facility] Last Admin: 06/08/17 07:54 Dose: 10 mg Magnesium Hydroxide (Milk Of Magnesia) 30 ml PO .PRN X 1 PRN PRN Reason: Constipation Last Admin: 06/08/17 05:38 Dose: 30 ml Metoprolol Succinate (Toprol Xl (Beta Luis Fernando)) 25 mg PO DAILY [facility] Last Admin: 06/08/17 07:54 Dose: 25 mg Quetiapine Fumarate (Seroquel) 25 mg PO DAILY@1999 [facility] Last Admin: 06/07/17 20:25 Dose: 25 mg Senna/Docusate Sodium (Senokot-S, Tammy-Colace) 2 tablet PO BID [facility] Last Admin: 06/08/17 10:57 Dose: Not Given Medical Necessity - Tobacco Use Smoking Status: Heavy Smoker (>10/day) Tobacco Use: Cigarettes Assessment/Plan Debility due to 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 Debility includes right hemiparesis and neglect as well as hemianopsia and receptive aphasia. Of rehab is [facility] of prior level of functional independence Plan: - Therapy for gait and balance - Occupational Therapy for ADLs - Speech therapy - Pressure is currently controlled, continue to monitor - Aspirin and Plavix for now - Statin therapy - Bowel protocol - DVT prophylaxis: Lovenox - continue smoking cessation - Seroquel at - Hypercoagulation panel => pending results - Weight loss noted of 2 lbs, re-weight on Tuesday and from then on , has good appetite per nursing staff
[2017-06-08] MEDS: QUEtiapine 25 MG Tablet PO (20:04)
[2017-06-08 22:00] VITALS: BP 107/73; PULSE 89; RESP 12; TEMP 36.8; O2SAT 97
[2017-06-08] MEDS: Senna/Docusate Sodium 1 Tablet 2 TABLET PO (22:06)
[2017-06-08] MEDS: Atorvastatin Calcium 80 MG Tablet PO (22:06)
[2017-06-09 05:00] VITALS: BMI 30.2
[2017-06-09] MEDS: Enoxaparin 40 MG/0.4 ML Syringe SC (05:10)
[2017-06-09 07:50] VITALS: BP 108/83; PULSE 111
[2017-06-09] MEDS: Aspirin E.C. 81 MG Tablet PO (07:50)
[2017-06-09] MEDS: Metoprolol(XL)Succ 25 MG Tablet PO (07:50)
[2017-06-09] MEDS: Clopidogrel Bisulfate 75 MG Tablet PO (07:50)
[2017-06-09] MEDS: Escitalopram Oxalate 10 MG Tablet PO (07:50)
[2017-06-09 08:12] VITALS: BP 108/83; PULSE 111; RESP 18; TEMP 36.8; O2SAT 98
--- NOTE | 2017-06-09 10:04 | PCM.PN.NEU ---
Subjective: Patient seen during Occupational therapy, He is able to use the Adebayo-walker and walk from his bed to the bathroom and from the bathroom to the bedside chair roughly 10 feet at one assist. He is tolerating therapy. Denies any shortness of breath or headaches. No issues with GI/ - Physical Exam General: Alert, Oriented x3, Cooperative HEENT: Atraumatic, PERRLA, EOMI, Normocephalic Neck: Supple, No JVD, Negative Carotid Bruits Lungs: Clear to auscultation, Normal air movement Cardiovascular: Regular rate, No murmurs Abdomen: Bowel Sounds Present, Soft, Non Tender Extremities: No edema, Capillary Refill Less than 3 Seconds Skin: No rashes, No breakdown Musculoskeletal: No Tenderness to Palpation of Joints or Extremities Neurological: Cranial nerves II-XII grossly intact Psych/Mental Status: Normal Affect, Appropriate Vital Signs Temp Pulse Resp BP Pulse Ox 98.2 F 111 H 18 108/83 H 98 06/09/17 08:12 06/09/17 08:12 06/09/17 08:12 06/09/17 08:12 06/09/17 08:12 Oxygen Delivery Method Room Air Weight: 99.5 kg Body Mass Index (BMI) 30.2 Finger Stick Blood Glucose 83 Intake and Output for Last 24 Hours 06/07/17 06/08/17 06/09/17 23:59 23:59 23:59 Intake Total 580 / 580 700 / 700 240 / 240 Balance 580 / 580 700 / 700 240 / 240 Active Medications Acetaminophen (Tylenol) 650 mg PO Q4H PRN PRN PRN Reason: Headache/Temp>99F Last Admin: 06/07/17 09:20 Dose: 650 mg Aspirin (Ecotrin) 81 mg PO DAILY@0800 [facility] Last Admin: 06/09/17 07:50 Dose: 81 mg Atorvastatin Calcium (Lipitor) 80 mg PO QHS [facility] Last Admin: 06/08/17 22:06 Dose: 80 mg Bisacodyl (Dulcolax) 10 mg RECTAL .PRN X 1 PRN PRN Reason: Constipation Clopidogrel Bisulfate (Plavix) 75 mg PO DAILY [facility] Last Admin: 06/09/17 07:50 Dose: 75 mg Emollient Ointment (Eucerin Intensive Repair) 1 applic TOPICAL QHS [facility] PRN Reason: Protocol Last Admin: 06/08/17 22:07 Dose: 1 applic Enoxaparin Sodium (Lovenox) 40 mg SC DAILY@0600 [facility] Last Admin: 06/09/17 05:10 Dose: 40 mg Escitalopram Oxalate (Lexapro) 10 mg PO DAILY [facility] Last Admin: 06/09/17 07:50 Dose: 10 mg Magnesium Hydroxide (Milk Of Magnesia) 30 ml PO .PRN X 1 PRN PRN Reason: Constipation Last Admin: 06/08/17 05:38 Dose: 30 ml Metoprolol Succinate (Toprol Xl (Beta Luis Fernando)) 25 mg PO DAILY [facility] Last Admin: 06/09/17 07:50 Dose: 25 mg Quetiapine Fumarate (Seroquel) 25 mg PO DAILY@1999 [facility] Last Admin: 06/08/17 20:04 Dose: 25 mg Senna/Docusate Sodium (Senokot-S, Tammy-Colace) 2 tablet PO BID [facility] Last Admin: 06/09/17 07:52 Dose: Not Given Medical Necessity - Tobacco Use Smoking Status: Heavy Smoker (>10/day) Tobacco Use: Cigarettes Assessment/Plan Debility due to 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 Debility includes right hemiparesis and neglect as well as hemianopsia and receptive aphasia. Of rehab is [facility] of prior level of functional independence Plan: - Therapy for gait and balance - Occupational Therapy for ADLs - Speech therapy - Pressure is currently controlled, continue to monitor - Aspirin and Plavix for now - Statin therapy - Bowel protocol - DVT prophylaxis: Lovenox - continue smoking cessation - Seroquel at - Hypercoagulation panel => pending results - Weight loss noted of 2 lbs, re-weight on Tuesday and from then on , has good appetite per nursing staff
--- NOTE | 2017-06-09 10:13 | PN.NEURO_ITS ---
Subjective: Patient seen during Occupational therapy, He is able to use the Adebayo-walker and walk from his bed to the bathroom and from the bathroom to the bedside chair roughly 10 feet at one assist. He is tolerating therapy. Denies any shortness of breath or headaches. No issues with GI/ - Physical Exam General: Alert, Oriented x3, Cooperative HEENT: Atraumatic, PERRLA, EOMI, Normocephalic Neck: Supple, No JVD, Negative Carotid Bruits Lungs: Clear to auscultation, Normal air movement Cardiovascular: Regular rate, No murmurs Abdomen: Bowel Sounds Present, Soft, Non Tender Extremities: No edema, Capillary Refill Less than 3 Seconds Skin: No rashes, No breakdown Musculoskeletal: No Tenderness to Palpation of Joints or Extremities Neurological: Cranial nerves II-XII grossly intact Psych/Mental Status: Normal Affect, Appropriate Vital Signs Temp Pulse Resp BP Pulse Ox 98.2 F 111 H 18 108/83 H 98 06/09/17 08:12 06/09/17 08:12 06/09/17 08:12 06/09/17 08:12 06/09/17 08:12 Oxygen Delivery Method Room Air Weight: 99.5 kg Body Mass Index (BMI) 30.2 Finger Stick Blood Glucose 83 Intake and Output for Last 24 Hours 06/07/17 06/08/17 06/09/17 23:59 23:59 23:59 Intake Total 580 / 580 700 / 700 240 / 240 Balance 580 / 580 700 / 700 240 / 240 Active Medications Acetaminophen (Tylenol) 650 mg PO Q4H PRN PRN PRN Reason: Headache/Temp>99F Last Admin: 06/07/17 09:20 Dose: 650 mg Aspirin (Ecotrin) 81 mg PO DAILY@0800 [facility] Last Admin: 06/09/17 07:50 Dose: 81 mg Atorvastatin Calcium (Lipitor) 80 mg PO QHS [facility] Last Admin: 06/08/17 22:06 Dose: 80 mg Bisacodyl (Dulcolax) 10 mg RECTAL .PRN X 1 PRN PRN Reason: Constipation Clopidogrel Bisulfate (Plavix) 75 mg PO DAILY [facility] Last Admin: 06/09/17 07:50 Dose: 75 mg Emollient Ointment (Eucerin Intensive Repair) 1 applic TOPICAL QHS [facility] PRN Reason: Protocol Last Admin: 06/08/17 22:07 Dose: 1 applic Enoxaparin Sodium (Lovenox) 40 mg SC DAILY@0600 [facility] Last Admin: 06/09/17 05:10 Dose: 40 mg Escitalopram Oxalate (Lexapro) 10 mg PO DAILY [facility] Last Admin: 06/09/17 07:50 Dose: 10 mg Magnesium Hydroxide (Milk Of Magnesia) 30 ml PO .PRN X 1 PRN PRN Reason: Constipation Last Admin: 06/08/17 05:38 Dose: 30 ml Metoprolol Succinate (Toprol Xl (Beta Luis Fernando)) 25 mg PO DAILY [facility] Last Admin: 06/09/17 07:50 Dose: 25 mg Quetiapine Fumarate (Seroquel) 25 mg PO DAILY@1999 [facility] Last Admin: 06/08/17 20:04 Dose: 25 mg Senna/Docusate Sodium (Senokot-S, Tammy-Colace) 2 tablet PO BID [facility] Last Admin: 06/09/17 07:52 Dose: Not Given Medical Necessity - Tobacco Use Smoking Status: Heavy Smoker (>10/day) Tobacco Use: Cigarettes Assessment/Plan Debility due to 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 Debility includes right hemiparesis and neglect as well as hemianopsia and receptive aphasia. Of rehab is [facility] of prior level of functional independence Plan: - Therapy for gait and balance - Occupational Therapy for ADLs - Speech therapy - Pressure is currently controlled, continue to monitor - Aspirin and Plavix for now - Statin therapy - Bowel protocol - DVT prophylaxis: Lovenox - continue smoking cessation - Seroquel at - Hypercoagulation panel => pending results - Weight loss noted of 2 lbs, re-weight on Tuesday and from then on , has good appetite per nursing staff
[2017-06-09 17:00] VITALS: BMI 30.2
[2017-06-09] MEDS: Atorvastatin Calcium 80 MG Tablet PO (20:21)
[2017-06-09] MEDS: QUEtiapine 25 MG Tablet PO (20:21)
[2017-06-09] MEDS: Senna/Docusate Sodium 1 Tablet 2 TABLET PO (20:22)
[2017-06-09] MEDS: Acetaminophen 325 MG Tablet 650 MG PO (20:22)
[2017-06-09 22:00] VITALS: BP 129/85; PULSE 95; RESP 18; TEMP 36.9; O2SAT 97
--- NOTE | 2017-06-09 23:48 | NURSING ---
Reviewed and agree with LPNs handoff
[2017-06-10] MEDS: Enoxaparin 40 MG/0.4 ML Syringe SC (05:53)
[2017-06-10 08:23] VITALS: BP 125/81; PULSE 79; RESP 18; TEMP 36.9; O2SAT 94
[2017-06-10 10:10] VITALS: BP 125/81; PULSE 79
[2017-06-10] MEDS: Escitalopram Oxalate 10 MG Tablet PO (10:10)
[2017-06-10] MEDS: Metoprolol(XL)Succ 25 MG Tablet PO (10:10)
[2017-06-10] MEDS: Clopidogrel Bisulfate 75 MG Tablet PO (10:10)
[2017-06-10] MEDS: Aspirin E.C. 81 MG Tablet PO (10:10)
--- NOTE | 2017-06-10 11:58 | PN.NEURO_ITS ---
Addendum entered and electronically signed by Ulises Chao MD 16:35: I have personally examined the patient at bedside. Please see GREEN ENERGY MARKETING ANALYST Sigrid Baez's note as below for further complete details. I have discussed the management plan for the patient in detail with MERCEDES Baez and please see the plan as noted below, tolerating therapies well, GI/DVT prophylaxis, fall precautions. Further medical management per hospitalist recommendations. Original Note: Subjective: Patient seen, no acute events over night. Tolerating therapy. Still no movement in right upper extremity. - Physical Exam General: Alert, Oriented x3, Cooperative HEENT: Atraumatic, PERRLA, EOMI, Normocephalic Neck: Supple, No JVD, Negative Carotid Bruits Lungs: Clear to auscultation, Normal air movement Cardiovascular: Regular rate, No murmurs Abdomen: Bowel Sounds Present, Soft, Non Tender Extremities: No edema, Capillary Refill Less than 3 Seconds Skin: No rashes, No breakdown Musculoskeletal: No Tenderness to Palpation of Joints or Extremities Neurological: Cranial nerves II-XII grossly intact Psych/Mental Status: Normal Affect, Appropriate, Alert and oriented to time, place, person, mood and affect Vital Signs Temp Pulse Resp BP Pulse Ox 98.4 F 79 18 125/81 H 94 06/10/17 08:23 06/10/17 10:10 06/10/17 08:23 06/10/17 10:10 06/10/17 08:23 Oxygen Delivery Method Room Air Weight: 99.5 kg Body Mass Index (BMI) 30.2 Finger Stick Blood Glucose 83 Intake and Output for Last 24 Hours 06/08/17 06/09/17 06/10/17 23:59 23:59 23:59 Intake Total 700 / 700 840 / 840 120 / 120 Balance 700 / 700 840 / 840 120 / 120 Active Medications Acetaminophen (Tylenol) 650 mg PO Q4H PRN PRN PRN Reason: Headache/Temp>99F Last Admin: 06/09/17 20:22 Dose: 650 mg Aspirin (Ecotrin) 81 mg PO DAILY@0800 [facility] Last Admin: 06/10/17 10:10 Dose: 81 mg Atorvastatin Calcium (Lipitor) 80 mg PO QHS [facility] Last Admin: 06/09/17 20:21 Dose: 80 mg Bisacodyl (Dulcolax) 10 mg RECTAL .PRN X 1 PRN PRN Reason: Constipation Clopidogrel Bisulfate (Plavix) 75 mg PO DAILY [facility] Last Admin: 06/10/17 10:10 Dose: 75 mg Emollient Ointment (Eucerin Intensive Repair) 1 applic TOPICAL BID [facility] PRN Reason: Protocol Last Admin: 06/10/17 11:59 Dose: 1 applicatio Enoxaparin Sodium (Lovenox) 40 mg SC DAILY@0600 [facility] Last Admin: 06/10/17 05:53 Dose: 40 mg Escitalopram Oxalate (Lexapro) 10 mg PO DAILY [facility] Last Admin: 06/10/17 10:10 Dose: 10 mg Magnesium Hydroxide (Milk Of Magnesia) 30 ml PO .PRN X 1 PRN PRN Reason: Constipation Last Admin: 06/08/17 05:38 Dose: 30 ml Metoprolol Succinate (Toprol Xl (Beta Luis Fernando)) 25 mg PO DAILY [facility] Last Admin: 06/10/17 10:10 Dose: 25 mg Quetiapine Fumarate (Seroquel) 25 mg PO DAILY@1999 [facility] Last Admin: 06/09/17 20:21 Dose: 25 mg Senna/Docusate Sodium (Senokot-S, Tammy-Colace) 2 tablet PO BID [facility] Last Admin: 06/10/17 10:10 Dose: Not Given Medical Necessity - Tobacco Use Smoking Status: Heavy Smoker (>10/day) Tobacco Use: Cigarettes Assessment/Plan Debility due to 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 Debility includes right hemiparesis and neglect as well as hemianopsia and receptive aphasia. Of rehab is sikh of prior level of functional independence Plan: - Therapy for gait and balance - Occupational Therapy for ADLs - Speech therapy - Pressure is currently controlled, continue to monitor - Aspirin and Plavix for now - Statin therapy - Bowel protocol - DVT prophylaxis: Lovenox - continue smoking cessation - Seroquel at - Hypercoagulation panel => pending results - Weight loss noted of 2 lbs, re-weight on Tuesday and from then on , has good appetite per nursing staff
[2017-06-10 12:15] VITALS: BMI 30.2
--- NOTE | 2017-06-10 12:38 | PN_ITS ---
Subjective: Seen still reports no movement in the right upper extremity Objective: GENERAL: cooperative HEENT: Clear conjunctiva, NECK; supple, normal thyroid, CHEST: Clear to auscultation bilaterally, HEART: Regular S1 S2, no audible murmurs ABDOMEN: soft, non-tender, normoactive bowel sounds, RECTAL: deferred EXTREMITIES: No edema, no clubbing, no cyanosis. COLLET DRILLER: right sided hemiparesis SKIN: No Rash Vitals/I&O's: Vital Signs Temp Pulse Resp BP Pulse Ox 98.4 F 79 18 125/81 H 94 06/10/17 08:23 06/10/17 10:10 06/10/17 08:23 06/10/17 10:10 06/10/17 08:23 Oxygen Delivery Method Room Air Weight: 99.5 kg Body Mass Index (BMI) 30.2 Finger Stick Blood Glucose 83 Intake and Output for Last 24 Hours 06/08/17 06/09/17 06/10/17 23:59 23:59 23:59 Intake Total 700 / 700 840 / 840 280 / 280 Balance 700 / 700 840 / 840 280 / 280 Current Medications Acetaminophen (Tylenol) 650 mg PO Q4H PRN PRN PRN Reason: Headache/Temp>99F Last Admin: 06/09/17 20:22 Dose: 650 mg Aspirin (Ecotrin) 81 mg PO DAILY@0800 [facility] Last Admin: 06/10/17 10:10 Dose: 81 mg Atorvastatin Calcium (Lipitor) 80 mg PO QHS [facility] Last Admin: 06/09/17 20:21 Dose: 80 mg Bisacodyl (Dulcolax) 10 mg RECTAL .PRN X 1 PRN PRN Reason: Constipation Clopidogrel Bisulfate (Plavix) 75 mg PO DAILY [facility] Last Admin: 06/10/17 10:10 Dose: 75 mg Emollient Ointment (Eucerin Intensive Repair) 1 applic TOPICAL BID [facility] PRN Reason: Protocol Last Admin: 06/10/17 11:59 Dose: 1 applicatio Enoxaparin Sodium (Lovenox) 40 mg SC DAILY@0600 [facility] Last Admin: 06/10/17 05:53 Dose: 40 mg Escitalopram Oxalate (Lexapro) 10 mg PO DAILY [facility] Last Admin: 06/10/17 10:10 Dose: 10 mg Magnesium Hydroxide (Milk Of Magnesia) 30 ml PO .PRN X 1 PRN PRN Reason: Constipation Last Admin: 06/08/17 05:38 Dose: 30 ml Metoprolol Succinate (Toprol Xl (Beta Luis Fernando)) 25 mg PO DAILY [facility] Last Admin: 06/10/17 10:10 Dose: 25 mg Quetiapine Fumarate (Seroquel) 25 mg PO DAILY@1999 [facility] Last Admin: 06/09/17 20:21 Dose: 25 mg Senna/Docusate Sodium (Senokot-S, Tammy-Colace) 2 tablet PO BID [facility] Last Admin: 06/10/17 10:10 Dose: Not Given Medical Necessity - Tobacco Use Smoking Status: Heavy Smoker (>10/day) Tobacco Use: Cigarettes Assessment/Plan Patient is a 41-year-old gentleman admitted to the inpatient rehab unit following an 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 Acute left MCA distribution infarct secondary to left carotid artery occlusion: Patient did experience significant debility with right-sided hemiparesis and neglect as well as hemianopsia and receptive aphasia currently being managed on the inpatient rehab unit 2. Hypertension-blood pressure controlled, home medications continued with dose adjustment as needed 3. Dyslipidemia-patient is on statin therapy, continued at home dose 4. Tobacco dependence counseled on cessation, offered nicotine patch for tobacco cravings 5. CAD with previous stent placement on dual antiplatelet therapy 6. Obesity with BMI 30.5 weight loss advised 7. DVT prophylaxis SC Lovenox Code Visit Inpatient E&M: 59450 Subs Hosp L2
[2017-06-10] MEDS: Acetaminophen 325 MG Tablet 650 MG PO (18:26)
[2017-06-10] MEDS: Senna/Docusate Sodium 1 Tablet 2 TABLET PO (20:07)
[2017-06-10] MEDS: QUEtiapine 25 MG Tablet PO (20:07)
[2017-06-10] MEDS: Atorvastatin Calcium 80 MG Tablet PO (20:07)
[2017-06-10 22:00] VITALS: BP 122/68; PULSE 74; RESP 18; TEMP 36.9; O2SAT 96
[2017-06-11 01:43] VITALS: BMI 30.2
--- NOTE | 2017-06-11 02:37 | NURSING ---
Reviewed and agree with LPNs fims and handoff
[2017-06-11] MEDS: Enoxaparin 40 MG/0.4 ML Syringe SC (05:49)
[2017-06-11 08:08] VITALS: BP 132/81; PULSE 90; RESP 18; TEMP 36.8; O2SAT 96
[2017-06-11 09:56] VITALS: BP 108/67; PULSE 83
[2017-06-11] MEDS: Acetaminophen 325 MG Tablet 650 MG PO ×3 (09:56→20:05)
[2017-06-11] MEDS: Metoprolol(XL)Succ 25 MG Tablet PO (09:56)
[2017-06-11] MEDS: Aspirin E.C. 81 MG Tablet PO (09:57)
[2017-06-11] MEDS: Clopidogrel Bisulfate 75 MG Tablet PO (09:57)
[2017-06-11] MEDS: Escitalopram Oxalate 10 MG Tablet PO (09:57)
[2017-06-11 10:12] VITALS: BMI 30.2
[2017-06-11 18:34] VITALS: BP 103/70; PULSE 68; RESP 16; TEMP 36.8; O2SAT 96
[2017-06-11] MEDS: QUEtiapine 25 MG Tablet PO (20:05)
[2017-06-11] MEDS: Atorvastatin Calcium 80 MG Tablet PO (20:08)
[2017-06-11 21:00] VITALS: PULSE 68; RESP 16; O2SAT 96
[2017-06-11 21:29] VITALS: BMI 30.2
--- NOTE | 2017-06-12 03:33 | NURSING ---
Reviewed and agree with SPACE ENGINEER documentation and FIMS charting.
[2017-06-12] MEDS: Acetaminophen 325 MG Tablet 650 MG PO (06:11)
[2017-06-12] MEDS: Enoxaparin 40 MG/0.4 ML Syringe SC (06:11)
--- NOTE | 2017-06-12 06:16 | NURSING ---
Tylenol 650 mg provided for 6/10 headache pain.
[2017-06-12 07:33] VITALS: BP 130/82; PULSE 97; RESP 16; TEMP 36.8; O2SAT 98
[2017-06-12 08:05] VITALS: PULSE 97
[2017-06-12] MEDS: Metoprolol(XL)Succ 25 MG Tablet PO (08:05)
[2017-06-12] MEDS: Senna/Docusate Sodium 1 Tablet 2 TABLET PO (08:05)
[2017-06-12] MEDS: Clopidogrel Bisulfate 75 MG Tablet PO (08:05)
[2017-06-12] MEDS: Aspirin E.C. 81 MG Tablet PO (08:05)
[2017-06-12] MEDS: Escitalopram Oxalate 10 MG Tablet PO (08:05)
--- NOTE | 2017-06-12 09:09 | PN_ITS ---
Subjective: Patient seen no change in condition. His right-sided hemiparesis persists. Objective: GENERAL: cooperative HEENT: Clear conjunctiva, NECK; supple, normal thyroid, CHEST: Clear to auscultation bilaterally, HEART: Regular S1 S2, no audible murmurs ABDOMEN: soft, non-tender, normoactive bowel sounds, RECTAL: deferred EXTREMITIES: No edema, no clubbing, no cyanosis. EPIC WILLOW SPECIALIST: right sided hemiparesis SKIN: No Rash Vitals/I&O's: Vital Signs Temp Pulse Resp BP Pulse Ox 98.2 F 97 16 130/82 H 98 06/12/17 07:33 06/12/17 08:05 06/12/17 07:33 06/12/17 07:33 06/12/17 07:33 Oxygen Delivery Method Room Air Weight: 99.5 kg Body Mass Index (BMI) 30.2 Finger Stick Blood Glucose 83 Intake and Output for Last 24 Hours 06/10/17 06/11/17 06/12/17 23:59 23:59 23:59 Intake Total 520 / 520 440 / 440 240 / 240 Balance 520 / 520 440 / 440 240 / 240 Current Medications Acetaminophen (Tylenol) 650 mg PO Q4H PRN PRN PRN Reason: Headache/Temp>99F Last Admin: 06/12/17 06:11 Dose: 650 mg Aspirin (Ecotrin) 81 mg PO DAILY@0800 [facility] Last Admin: 06/12/17 08:05 Dose: 81 mg Atorvastatin Calcium (Lipitor) 80 mg PO QHS [facility] Last Admin: 06/11/17 20:08 Dose: 80 mg Bisacodyl (Dulcolax) 10 mg RECTAL .PRN X 1 PRN PRN Reason: Constipation Clopidogrel Bisulfate (Plavix) 75 mg PO DAILY [facility] Last Admin: 06/12/17 08:05 Dose: 75 mg Emollient Ointment (Eucerin Intensive Repair) 1 applic TOPICAL BID [facility] PRN Reason: Protocol Last Admin: 06/12/17 08:06 Dose: 1 applicatio Enoxaparin Sodium (Lovenox) 40 mg SC DAILY@0600 [facility] Last Admin: 06/12/17 06:11 Dose: 40 mg Escitalopram Oxalate (Lexapro) 10 mg PO DAILY [facility] Last Admin: 06/12/17 08:05 Dose: 10 mg Magnesium Hydroxide (Milk Of Magnesia) 30 ml PO .PRN X 1 PRN PRN Reason: Constipation Last Admin: 06/08/17 05:38 Dose: 30 ml Metoprolol Succinate (Toprol Xl (Beta Luis Fernando)) 25 mg PO DAILY [facility] Last Admin: 06/12/17 08:05 Dose: 25 mg Quetiapine Fumarate (Seroquel) 25 mg PO DAILY@1999 [facility] Last Admin: 06/11/17 20:05 Dose: 25 mg Senna/Docusate Sodium (Senokot-S, Tammy-Colace) 2 tablet PO BID [facility] Last Admin: 06/12/17 08:05 Dose: 2 tablet Medical Necessity - Tobacco Use Smoking Status: Heavy Smoker (>10/day) Tobacco Use: Cigarettes Assessment/Plan Patient is a 41-year-old gentleman admitted to the inpatient rehab unit following an 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 Acute left MCA distribution infarct secondary to left carotid artery occlusion: Patient did experience significant debility with right-sided hemiparesis and neglect as well as hemianopsia and receptive aphasia currently being managed on the inpatient rehab unit 2. Hypertension-blood pressure controlled, home medications continued with dose adjustment as needed 3. Dyslipidemia-patient is on statin therapy, continued at home dose 4. Tobacco dependence counseled on cessation, offered nicotine patch for tobacco cravings 5. CAD with previous stent placement on dual antiplatelet therapy 6. Obesity with BMI 30.5 weight loss advised 7. DVT prophylaxis SC Lovenox Code Visit Inpatient E&M: 85122 Subs Hosp L2
[2017-06-12 11:26] VITALS: BMI 30.2
[2017-06-12 19:35] VITALS: BP 104/77; PULSE 66; RESP 16; TEMP 36.9; O2SAT 96; BMI 30.2
[2017-06-12] MEDS: QUEtiapine 25 MG Tablet PO (19:50)
[2017-06-12] MEDS: Atorvastatin Calcium 80 MG Tablet PO (19:50)
--- NOTE | 2017-06-13 02:14 | NURSING ---
Reviewed and agree with THREAD GRINDER documentation and FIMS charting.
[2017-06-13] MEDS: Enoxaparin 40 MG/0.4 ML Syringe SC (05:21)
[2017-06-13] MEDS: Aspirin E.C. 81 MG Tablet PO (07:42)
[2017-06-13] MEDS: Escitalopram Oxalate 10 MG Tablet PO (07:42)
[2017-06-13] MEDS: Clopidogrel Bisulfate 75 MG Tablet PO (07:43)
[2017-06-13 07:45] VITALS: BP 107/72; PULSE 50; RESP 18; TEMP 36.7; O2SAT 96
[2017-06-13 09:39] VITALS: BP 118/76; PULSE 64
[2017-06-13 09:44] VITALS: PULSE 64
[2017-06-13] MEDS: Metoprolol(XL)Succ 25 MG Tablet 12.5 MG PO (09:44)
--- NOTE | 2017-06-13 09:45 | PN.NEURO_ITS ---
Subjective: Staffed in team meeting. Family at bedside. Questions answered. With Physical therapy, he is standby to contact guard for bed mobility, going from a lying position to a sitting position. He is contact guard for transfers from going from the bed to bedside chair. He is walking about 150 feet at minimal to moderate assistance using a Adebayo-walker. He is able to go up and down about 4 steps at moderate to max assist. He is starting to get some movement in his right shoulder. With Occupational therapy, he requires moderate to max assist with personal care, bathing, and toileting. He is improving, still struggling with using his left hand since he is right sided at baseline. With Speech therapy, he continues to have trouble with inattention, and impulsiveness, once he focus he is able to do the task at hand the majority of the time. His speech has improved, he still has some mild slurried speech, and they are working on oral exercises to help with his word articulation. He is tolerating a regular diet without any issues, just need reminders to eat more slowly. With Nursing, no issues. Will have family training today so that the is more familiar with the task he can perform and the ones he will need assistance with. Insurance update is today, if they approve more time will re-team on Tuesday of next week. - Physical Exam General: Alert, Oriented x3, Cooperative HEENT: Atraumatic, PERRLA, EOMI, Normocephalic Neck: Supple, No JVD, Negative Carotid Bruits Lungs: Clear to auscultation, Normal air movement Cardiovascular: Regular rate, No murmurs Abdomen: Bowel Sounds Present, Soft, Non Tender Extremities: No edema, Capillary Refill Less than 3 Seconds Skin: No rashes, No breakdown Musculoskeletal: No Tenderness to Palpation of Joints or Extremities Neurological: Cranial nerves II-XII grossly intact Psych/Mental Status: Normal Affect, Appropriate, Alert and oriented to time, place, person, mood and affect Vital Signs Temp Pulse Resp BP Pulse Ox 98.0 F 64 18 118/76 96 06/13/17 07:45 06/13/17 09:39 06/13/17 07:45 06/13/17 09:39 06/13/17 07:45 Oxygen Delivery Method Room Air Weight: 99.5 kg Body Mass Index (BMI) 30.2 Finger Stick Blood Glucose 83 Intake and Output for Last 24 Hours 06/11/17 06/12/17 06/13/17 23:59 23:59 23:59 Intake Total 440 / 440 480 / 480 260 / 260 Balance 440 / 440 480 / 480 260 / 260 Active Medications Acetaminophen (Tylenol) 650 mg PO Q4H PRN PRN PRN Reason: Headache/Temp>99F Last Admin: 06/12/17 06:11 Dose: 650 mg Aspirin (Ecotrin) 81 mg PO DAILY@0800 [facility] Last Admin: 06/13/17 07:42 Dose: 81 mg Atorvastatin Calcium (Lipitor) 80 mg PO QHS [facility] Last Admin: 06/12/17 19:50 Dose: 80 mg Bisacodyl (Dulcolax) 10 mg RECTAL .PRN X 1 PRN PRN Reason: Constipation Clopidogrel Bisulfate (Plavix) 75 mg PO DAILY [facility] Last Admin: 06/13/17 07:43 Dose: 75 mg Emollient Ointment (Eucerin Intensive Repair) 1 applic TOPICAL 0600,2200 [facility] PRN Reason: Protocol Last Admin: 06/13/17 05:21 Dose: 1 applicatio Enoxaparin Sodium (Lovenox) 40 mg SC DAILY@0600 [facility] Last Admin: 06/13/17 05:21 Dose: 40 mg Escitalopram Oxalate (Lexapro) 10 mg PO DAILY [facility] Last Admin: 06/13/17 07:42 Dose: 10 mg Magnesium Hydroxide (Milk Of Magnesia) 30 ml PO .PRN X 1 PRN PRN Reason: Constipation Last Admin: 06/08/17 05:38 Dose: 30 ml Metoprolol Succinate (Toprol Xl (Beta Luis Fernando)) 12.5 mg PO DAILY [facility] Quetiapine Fumarate (Seroquel) 25 mg PO DAILY@1999 [facility] Last Admin: 06/12/17 19:50 Dose: 25 mg Senna/Docusate Sodium (Senokot-S, Tammy-Colace) 2 tablet PO BID [facility] Last Admin: 06/13/17 07:42 Dose: Not Given Medical Necessity - Tobacco Use Smoking Status: Heavy Smoker (>10/day) Tobacco Use: Cigarettes Assessment/Plan Debility due to 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 Debility includes right hemiparesis and neglect as well as hemianopsia and receptive aphasia. Of rehab is gnosticism of prior level of functional independence Plan: - Therapy for gait and balance - Occupational Therapy for ADLs - Speech therapy - Pressure is currently controlled, continue to monitor - Aspirin and Plavix for now - Statin therapy - Bowel protocol - DVT prophylaxis: Lovenox - continue smoking cessation - Seroquel at HS - Hypercoagulation panel => pending results - Weight has remained stable with no additional weight loss noted. - Bradycardia -> decreased Metoprolol to 12.5mg from 25mg and hold for heart rate less than 60
--- NOTE | 2017-06-13 10:53 | CASEMGMT ---
Insurance Clinical information faxed. Pending continued stay approval at this time. Auth#[id number] Micki DEVINE, RESIDENT CARE MANAGER
--- NOTE | 2017-06-13 10:54 | CASEMGMT ---
Team meeting held. Patient present as well as patient family. No discharge date set at this time. Team recommending for patient to continue with further care and treatment on the Inpatient Rehab Unit. Patient and patient family agreeable to this plan. Patient spouse to begin family training this week. Patient with insurance update due on 06/13/17. Patient and patient family aware that continued stay is not guaranteed by insurance. Patient plans to discharge home with spouse at time of discharge. Support given. Will continue to follow. Micki DEVINE, COMPLEX HUMAN RESOURCES MANAGER
[2017-06-13 11:37] VITALS: BMI 30.2
--- NOTE | 2017-06-13 13:56 | CASEMGMT ---
Insurance Continued stay approved with next update due on 06/20/17 Auth#[id number] Micki DEVINE, CHECK SCALER
--- NOTE | 2017-06-13 17:00 | PN_ITS ---
Subjective: Patient seen and examined. No new complains. Therapy is going well. Still cannot use much of his right side. Vitals/I&O's: Vital Signs Temp Pulse Resp BP Pulse Ox 98.0 F 64 18 118/76 96 06/13/17 07:45 06/13/17 09:44 06/13/17 07:45 06/13/17 09:39 06/13/17 07:45 Oxygen Delivery Method Room Air Weight: 99.5 kg Body Mass Index (BMI) 30.2 Finger Stick Blood Glucose 83 Intake and Output for Last 24 Hours 06/11/17 06/12/17 06/13/17 23:59 23:59 23:59 Intake Total 440 / 440 480 / 480 260 / 260 Balance 440 / 440 480 / 480 260 / 260 General: Alert, Oriented x3, Cooperative, No apparent distress HEENT: Atraumatic, PERRLA, EOMI, Normocephalic Oral: Moist Mucosa Neck: Supple Lungs: Clear to auscultation, Normal air movement Cardiovascular: Regular rate, Regular Rhythm, Normal S1, Normal S2, No murmurs Abdomen: Bowel Sounds Present, Soft, Non Tender, Non-Distended, No Hepato- splenomegaly Extremities: No edema Skin: No rashes Musculoskeletal: No Tenderness to Palpation of Joints or Extremities Lymphatic: No Cervical, Supraclavicular, or Inguinal Adenopathy Neurological: - - Right sided hemiparesis 1-2/5, increased tone Psych/Mental Status: Normal Affect, Appropriate Current Medications Acetaminophen (Tylenol) 650 mg PO Q4H PRN PRN PRN Reason: Headache/Temp>99F Last Admin: 06/12/17 06:11 Dose: 650 mg Aspirin (Ecotrin) 81 mg PO DAILY@0800 [facility] Last Admin: 06/13/17 07:42 Dose: 81 mg Atorvastatin Calcium (Lipitor) 80 mg PO QHS [facility] Last Admin: 06/12/17 19:50 Dose: 80 mg Bisacodyl (Dulcolax) 10 mg RECTAL .PRN X 1 PRN PRN Reason: Constipation Clopidogrel Bisulfate (Plavix) 75 mg PO DAILY [facility] Last Admin: 06/13/17 07:43 Dose: 75 mg Emollient Ointment (Eucerin Intensive Repair) 1 applic TOPICAL 0600,2200 [facility] PRN Reason: Protocol Last Admin: 06/13/17 05:21 Dose: 1 applicatio Enoxaparin Sodium (Lovenox) 40 mg SC DAILY@0600 [facility] Last Admin: 06/13/17 05:21 Dose: 40 mg Escitalopram Oxalate (Lexapro) 10 mg PO DAILY [facility] Last Admin: 06/13/17 07:42 Dose: 10 mg Magnesium Hydroxide (Milk Of Magnesia) 30 ml PO .PRN X 1 PRN PRN Reason: Constipation Last Admin: 06/08/17 05:38 Dose: 30 ml Metoprolol Succinate (Toprol Xl (Beta Luis Fernando)) 12.5 mg PO DAILY [facility] Last Admin: 06/13/17 09:44 Dose: 12.5 mg Quetiapine Fumarate (Seroquel) 25 mg PO DAILY@1999 [facility] Last Admin: 06/12/17 19:50 Dose: 25 mg Senna/Docusate Sodium (Senokot-S, Tammy-Colace) 2 tablet PO BID [facility] Last Admin: 06/13/17 07:42 Dose: Not Given Medical Necessity - Tobacco Use Smoking Status: Heavy Smoker (>10/day) Tobacco Use: Cigarettes Assessment/Plan 41-year-old gentleman admitted to the inpatient rehab unit following an 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 Debility secondary to Acute left MCA distribution infarct secondary to left carotid artery occlusion, therapy ongoing 2. Hypertension, controlled, continue on regimen. 3. Dyslipidemia, on statin. 4. Tobacco dependence, on nicotine replacement. 5. CAD s/p stent, on aspirin, statin, beta-luis fernando 6. Obesity with BMI 30.5, weight loss advised 7. DVT prophylaxis SC Lovenox Code Visit Inpatient E&M: 93632 Subs Hosp L2
[2017-06-13] MEDS: QUEtiapine 25 MG Tablet PO (19:44)
[2017-06-13] MEDS: Atorvastatin Calcium 80 MG Tablet PO (19:44)
[2017-06-13 19:49] VITALS: BP 112/74; PULSE 74; RESP 16; TEMP 36.6; O2SAT 97
[2017-06-13 20:02] VITALS: BMI 30.2
[2017-06-14] MEDS: Enoxaparin 40 MG/0.4 ML Syringe SC (05:09)
[2017-06-14 07:49] VITALS: BP 113/71; PULSE 116; RESP 19; TEMP 36.5; O2SAT 96
[2017-06-14 09:28] VITALS: BP 113/71; PULSE 116
[2017-06-14] MEDS: Metoprolol(XL)Succ 25 MG Tablet 12.5 MG PO ×2 (09:28→09:35)
[2017-06-14] MEDS: Aspirin E.C. 81 MG Tablet PO ×2 (09:28→09:35)
[2017-06-14] MEDS: Escitalopram Oxalate 10 MG Tablet PO ×2 (09:28→09:35)
[2017-06-14] MEDS: Clopidogrel Bisulfate 75 MG Tablet PO ×2 (09:28→09:35)
[2017-06-14 09:35] VITALS: BP 113/71; PULSE 116
[2017-06-14] MEDS: Acetaminophen 325 MG Tablet 650 MG PO (09:35)
[2017-06-14 11:06] VITALS: BMI 30.2
[2017-06-14 17:36] LABS: Factor VIII Activity 184 % (57-163)
[2017-06-14] MEDS: QUEtiapine 25 MG Tablet PO (19:38)
[2017-06-14] MEDS: Atorvastatin Calcium 80 MG Tablet PO (19:38)
[2017-06-14 19:41] VITALS: BP 105/68; PULSE 115; RESP 16; TEMP 37.1; O2SAT 95
[2017-06-14 19:46] VITALS: BMI 30.2
--- NOTE | 2017-06-15 00:59 | NURSING ---
REVIEWED AND AGREE WITH TIME SIGNAL WIRER'S FIM AND HANDOFF CHARTING.
[2017-06-15] MEDS: Enoxaparin 40 MG/0.4 ML Syringe SC (05:46)
[2017-06-15 07:35] VITALS: BP 99/60; PULSE 66; RESP 16; TEMP 36.9; O2SAT 96
--- NOTE | 2017-06-15 09:02 | PN.NEURO_ITS ---
Subjective: Patient seen and examined. No acute events over night. Tolerating therapy. Denies any shortness of breath or chest pains. No issues with GI/. - Physical Exam General: Alert, Oriented x3, Cooperative HEENT: Atraumatic, PERRLA, EOMI, Normocephalic Neck: Supple, No JVD, Negative Carotid Bruits Lungs: Clear to auscultation, Normal air movement Cardiovascular: Regular rate, No murmurs Abdomen: Bowel Sounds Present, Soft, Non Tender Extremities: No edema, Capillary Refill Less than 3 Seconds Skin: No rashes, No breakdown Musculoskeletal: No Tenderness to Palpation of Joints or Extremities Neurological: Cranial nerves II-XII grossly intact Psych/Mental Status: Normal Affect, Appropriate, Alert and oriented to time, place, person, mood and affect Vital Signs Temp Pulse Resp BP Pulse Ox 98.4 F 66 16 99/60 96 06/15/17 07:35 06/15/17 07:35 06/15/17 07:35 06/15/17 07:35 06/15/17 07:35 Oxygen Delivery Method Room Air Weight: 98.5 kg Body Mass Index (BMI) 30.2 Finger Stick Blood Glucose 83 Intake and Output for Last 24 Hours 06/13/17 06/14/17 06/15/17 23:59 23:59 23:59 Intake Total 260 / 260 480 / 480 240 / 240 Balance 260 / 260 480 / 480 240 / 240 Laboratory Tests Past 24 Hrs 06/07/17 12:57 Factor V Leiden Mutat Comment Factor VIII Activity 184 H von Willebrand Comment 137 Intrinsic Factor Ab 1.0 Factor II DNA Analysis Comment Active Medications Acetaminophen (Tylenol) 650 mg PO Q4H PRN PRN PRN Reason: Headache/Temp>99F Last Admin: 06/14/17 09:35 Dose: 650 mg Aspirin (Ecotrin) 81 mg PO DAILY@0800 [facility] Last Admin: 06/14/17 09:35 Dose: 81 mg Atorvastatin Calcium (Lipitor) 80 mg PO QHS [facility] Last Admin: 06/14/17 19:38 Dose: 80 mg Bisacodyl (Dulcolax) 10 mg RECTAL .PRN X 1 PRN PRN Reason: Constipation Clopidogrel Bisulfate (Plavix) 75 mg PO DAILY [facility] Last Admin: 06/14/17 09:35 Dose: 75 mg Emollient Ointment (Eucerin Intensive Repair) 1 applic TOPICAL 0600,2200 [facility] PRN Reason: Protocol Last Admin: 06/15/17 05:46 Dose: 1 applicatio Enoxaparin Sodium (Lovenox) 40 mg SC DAILY@0600 [facility] Last Admin: 06/15/17 05:46 Dose: 40 mg Escitalopram Oxalate (Lexapro) 10 mg PO DAILY [facility] Last Admin: 06/14/17 09:35 Dose: 10 mg Magnesium Hydroxide (Milk Of Magnesia) 30 ml PO .PRN X 1 PRN PRN Reason: Constipation Last Admin: 06/08/17 05:38 Dose: 30 ml Metoprolol Succinate (Toprol Xl (Beta Luis Fernando)) 12.5 mg PO DAILY [facility] Last Admin: 06/14/17 09:35 Dose: 12.5 mg Quetiapine Fumarate (Seroquel) 25 mg PO DAILY@1999 [facility] Last Admin: 06/14/17 19:38 Dose: 25 mg Senna/Docusate Sodium (Senokot-S, Tammy-Colace) 2 tablet PO BID [facility] Last Admin: 06/14/17 19:38 Dose: Not Given Medical Necessity - Tobacco Use Smoking Status: Heavy Smoker (>10/day) Tobacco Use: Cigarettes Assessment/Plan Debility due to 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 Debility includes right hemiparesis and neglect as well as hemianopsia and receptive aphasia. Of rehab is [facility] of prior level of functional independence Plan: - Therapy for gait and balance - Occupational Therapy for ADLs - Speech therapy - Pressure is currently controlled, continue to monitor - Aspirin and Plavix for now - Statin therapy - Bowel protocol - DVT prophylaxis: Lovenox - continue smoking cessation - Seroquel at - Hypercoagulation panel => pending results - Weight has remained stable with no additional weight loss noted. - Bradycardia -> decreased Metoprolol to 12.5mg from 25mg and hold for heart rate less than 60 - Share care -> Family training in anticipation of discharge home next week
--- NOTE | 2017-06-15 16:25 | PCM.PN.HOSP ---
Subjective: Patient was seen and examined, no complaints, therapy is going well, still has no much improvement with power in the right upper and lower extremity. Denies any fever or chills or shortness of breath. Objective: Physical exam: General: Alert, Oriented x3, Cooperative, No apparent distress, HEENT: Atraumatic, PERRLA, EOMI, Normocephalic Oral: Moist Mucosa Neck: Supple Lungs: Clear to auscultation, Normal air movement Cardiovascular: Regular rate, Regular Rhythm, Normal S1, Normal S2, No murmurs Abdomen: Bowel Sounds Present, Soft, Non Tender, Non-Distended, No Hepato-splenomegaly Extremities: No edema Skin: No rashes Musculoskeletal: No Tenderness to Palpation of Joints or Extremities Lymphatic: No Cervical, Supraclavicular, or Inguinal Adenopathy Neurological: - - Right sided hemiparesis 1-2/5, increased tone Psych/Mental Status: Normal Affect, Appropriate Vitals/I&O's: Vital Signs Temp Pulse Resp BP Pulse Ox 98.4 F 66 16 99/60 96 06/15/17 07:35 06/15/17 07:35 06/15/17 07:35 06/15/17 07:35 06/15/17 07:35 Oxygen Delivery Method Room Air Weight: 98.5 kg Body Mass Index (BMI) 30.2 Finger Stick Blood Glucose 83 Intake and Output for Last 24 Hours 06/13/17 06/14/17 06/15/17 23:59 23:59 23:59 Intake Total 260 / 260 480 / 480 560 / 560 Balance 260 / 260 480 / 480 560 / 560 Laboratory Results 06/07/17 12:57: Factor V Leiden Mutat Comment, Factor VIII Activity 184 H, von Willebrand Comment 137, Intrinsic Factor Ab 1.0, Factor II DNA Analysis Comment Current Medications Acetaminophen (Tylenol) 650 mg PO Q4H PRN PRN PRN Reason: Headache/Temp>99F Last Admin: 06/14/17 09:35 Dose: 650 mg Aspirin (Ecotrin) 81 mg PO DAILY@0800 [facility] Last Admin: 06/14/17 09:35 Dose: 81 mg Atorvastatin Calcium (Lipitor) 80 mg PO QHS [facility] Last Admin: 06/14/17 19:38 Dose: 80 mg Bisacodyl (Dulcolax) 10 mg RECTAL .PRN X 1 PRN PRN Reason: Constipation Clopidogrel Bisulfate (Plavix) 75 mg PO DAILY [facility] Last Admin: 06/14/17 09:35 Dose: 75 mg Emollient Ointment (Eucerin Intensive Repair) 1 applic TOPICAL 0600,2200 [facility] PRN Reason: Protocol Last Admin: 06/15/17 05:46 Dose: 1 applicatio Enoxaparin Sodium (Lovenox) 40 mg SC DAILY@0600 [facility] Last Admin: 06/15/17 05:46 Dose: 40 mg Escitalopram Oxalate (Lexapro) 10 mg PO DAILY [facility] Last Admin: 06/14/17 09:35 Dose: 10 mg Magnesium Hydroxide (Milk Of Magnesia) 30 ml PO .PRN X 1 PRN PRN Reason: Constipation Last Admin: 06/08/17 05:38 Dose: 30 ml Metoprolol Succinate (Toprol Xl (Beta Luis Fernando)) 12.5 mg PO DAILY [facility] Last Admin: 06/14/17 09:35 Dose: 12.5 mg Quetiapine Fumarate (Seroquel) 25 mg PO DAILY@1999 [facility] Last Admin: 06/14/17 19:38 Dose: 25 mg Senna/Docusate Sodium (Senokot-S, Tammy-Colace) 2 tablet PO BID [facility] Last Admin: 06/15/17 11:22 Dose: Not Given Medical Necessity - Tobacco Use Smoking Status: Heavy Smoker (>10/day) Tobacco Use: Cigarettes Assessment/Plan 41-year-old gentleman admitted to the inpatient rehab unit following an 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 Debility secondary to Acute left MCA distribution infarct secondary to left carotid artery occlusion, therapy ongoing, on aspirin, statin, beta-luis fernando, Plavix 2. Hypertension, controlled, continue on metoprolol 3. Dyslipidemia, on statin. 4. Tobacco dependence, on nicotine replacement. 5. CAD s/p stent, on aspirin, plavix, statin, beta-luis fernando 6. Obesity with BMI 30.5, weight loss advised 7. DVT prophylaxis SC Lovenox Code Visit Inpatient E&M: 20804 [facility] Hosp L2
[2017-06-15 17:00] VITALS: BMI 30.2
[2017-06-15 19:58] VITALS: BP 114/78; PULSE 88; RESP 20; TEMP 36.6; O2SAT 97
[2017-06-15] MEDS: QUEtiapine 25 MG Tablet PO (20:00)
[2017-06-15] MEDS: Atorvastatin Calcium 80 MG Tablet PO (23:15)
[2017-06-16 05:00] VITALS: BMI 30.2
[2017-06-16] MEDS: Enoxaparin 40 MG/0.4 ML Syringe SC (06:33)
[2017-06-16 07:35] VITALS: BP 109/71; PULSE 66; RESP 17; TEMP 36.6; O2SAT 97
[2017-06-16 07:38] VITALS: PULSE 66
[2017-06-16] MEDS: Escitalopram Oxalate 10 MG Tablet PO (07:38)
[2017-06-16] MEDS: Senna/Docusate Sodium 1 Tablet 2 TABLET PO (07:38)
[2017-06-16] MEDS: Aspirin E.C. 81 MG Tablet PO (07:38)
[2017-06-16] MEDS: Clopidogrel Bisulfate 75 MG Tablet PO (07:38)
[2017-06-16] MEDS: Metoprolol(XL)Succ 25 MG Tablet 12.5 MG PO (07:38)
--- NOTE | 2017-06-16 10:17 | PCM.PN.NEU ---
Subjective: Patient seen, no new complaint, states He is ready to go home. Will have his AFO fitted today. - Physical Exam General: Alert, Oriented x3, Cooperative HEENT: Atraumatic, PERRLA, EOMI, Normocephalic Neck: Supple, No JVD, Negative Carotid Bruits Lungs: Clear to auscultation, Normal air movement Cardiovascular: Regular rate, No murmurs Abdomen: Bowel Sounds Present, Soft, Non Tender Extremities: No edema, Capillary Refill Less than 3 Seconds Skin: No rashes, No breakdown Musculoskeletal: No Tenderness to Palpation of Joints or Extremities Neurological: Cranial nerves II-XII grossly intact Psych/Mental Status: Normal Affect, Appropriate, Alert and oriented to time, place, person, mood and affect Vital Signs Temp Pulse Resp BP Pulse Ox 97.9 F 66 17 109/71 97 06/16/17 07:35 06/16/17 07:38 06/16/17 07:35 06/16/17 07:35 06/16/17 07:35 Oxygen Delivery Method Room Air Weight: 98.5 kg Body Mass Index (BMI) 30.2 Finger Stick Blood Glucose 83 Intake and Output for Last 24 Hours 06/14/17 06/15/17 06/16/17 23:59 23:59 23:59 Intake Total 480 / 480 800 / 800 Balance 480 / 480 800 / 800 Active Medications Acetaminophen (Tylenol) 650 mg PO Q4H PRN PRN PRN Reason: Headache/Temp>99F Last Admin: 06/14/17 09:35 Dose: 650 mg Aspirin (Ecotrin) 81 mg PO DAILY@0800 [facility] Last Admin: 06/16/17 07:38 Dose: 81 mg Atorvastatin Calcium (Lipitor) 80 mg PO QHS [facility] Last Admin: 06/15/17 23:15 Dose: 80 mg Bisacodyl (Dulcolax) 10 mg RECTAL .PRN X 1 PRN PRN Reason: Constipation Clopidogrel Bisulfate (Plavix) 75 mg PO DAILY [facility] Last Admin: 06/16/17 07:38 Dose: 75 mg Emollient Ointment (Eucerin Intensive Repair) 1 applic TOPICAL 0600,2200 [facility] PRN Reason: Protocol Last Admin: 06/16/17 06:33 Dose: 1 applicatio Enoxaparin Sodium (Lovenox) 40 mg SC DAILY@0600 [facility] Last Admin: 06/16/17 06:33 Dose: 40 mg Escitalopram Oxalate (Lexapro) 10 mg PO DAILY [facility] Last Admin: 06/16/17 07:38 Dose: 10 mg Magnesium Hydroxide (Milk Of Magnesia) 30 ml PO .PRN X 1 PRN PRN Reason: Constipation Last Admin: 06/08/17 05:38 Dose: 30 ml Metoprolol Succinate (Toprol Xl (Beta Luis Fernando)) 12.5 mg PO DAILY [facility] Last Admin: 06/16/17 07:38 Dose: 12.5 mg Quetiapine Fumarate (Seroquel) 25 mg PO DAILY@1999 [facility] Last Admin: 06/15/17 20:00 Dose: 25 mg Senna/Docusate Sodium (Senokot-S, Tammy-Colace) 2 tablet PO BID [facility] Last Admin: 06/16/17 07:38 Dose: 2 tablet Medical Necessity - Tobacco Use Smoking Status: Heavy Smoker (>10/day) Tobacco Use: Cigarettes Assessment/Plan Debility due to 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 Debility includes right hemiparesis and neglect as well as hemianopsia and receptive aphasia. Of rehab is [facility] of prior level of functional independence Plan: - Therapy for gait and balance - Occupational Therapy for ADLs - Speech therapy - Pressure is currently controlled, continue to monitor - Aspirin and Plavix for now - Statin therapy - Bowel protocol - DVT prophylaxis: Lovenox - continue smoking cessation - Seroquel at - Hypercoagulation panel => pending results - Weight has remained stable with no additional weight loss noted. - Bradycardia -> decreased Metoprolol to 12.5mg from 25mg and hold for heart rate less than 60 - Share care -> Family training in anticipation of discharge home next week
[2017-06-16 13:04] VITALS: BMI 30.2
--- NOTE | 2017-06-16 14:59 | CASEMGMT ---
Social Work Spoke with patient and patient spouse. Patient requesting for discharge date to be set for 06/22/17. Staff/team reporting that patient would benefit from further therapy. Patient aware of recommendation but wanting to return home. Staff reporting that patient is safe to return home as long as patient has 24hr supervision and would also need to continue with therapy services for speech therapy, physical therapy, and occupational therapy. Patient is agreeable to recommendations and continues to request for discharge date to be set for 06/22/17. Patient plans to discharge home with spouse at time of discharge with outpatient therapy services. Patient requesting for outpatient therapy to be set up through [facility] in [place]. Patient also reporting a need for a quad cane, wheelchair, shower chair, and blood pressure cuff. Patient requesting for orders to be faxed to [facility] and is aware that all equipment may not be covered. Patient spouse plans to pick pulling machine tender equipment prior to discharge. Support given. [facility] canvas worker making referral for above mentioned equipment Judi to check patient insurance to see what is covered. Orders faxed along with clinical information. Will continue to follow to set up outpatient therapy services. Proposed discharge date: 06/22/17 PLAN: Discharge home with spouse and outpatient therapy services. Micki DEVIEN, SIGNALS INTELLIGENCE SUPERINTENDENT
[2017-06-16 19:38] VITALS: BP 100/64; PULSE 84; RESP 18; TEMP 36.9
[2017-06-16] MEDS: Atorvastatin Calcium 80 MG Tablet PO (19:46)
[2017-06-16] MEDS: QUEtiapine 25 MG Tablet PO (19:46)
[2017-06-16 19:52] VITALS: BMI 30.2
[2017-06-17] MEDS: Enoxaparin 40 MG/0.4 ML Syringe SC (05:59)
[2017-06-17 07:33] VITALS: PULSE 70
[2017-06-17] MEDS: Metoprolol(XL)Succ 25 MG Tablet 12.5 MG PO (07:33)
[2017-06-17] MEDS: Escitalopram Oxalate 10 MG Tablet PO (07:33)
[2017-06-17] MEDS: Aspirin E.C. 81 MG Tablet PO (07:33)
[2017-06-17] MEDS: Clopidogrel Bisulfate 75 MG Tablet PO (07:33)
[2017-06-17 08:00] VITALS: BP 127/86; RESP 16; TEMP 36.4; O2SAT 97
[2017-06-17 13:15] VITALS: BMI 30.2
--- NOTE | 2017-06-17 14:29 | PN_ITS ---
Subjective: Patient was seen and examined, no complaints, therapy is going well. Objective: Physical exam: General: Alert, Oriented x3, Cooperative, No apparent distress, HEENT: Atraumatic, PERRLA, EOMI, Normocephalic Oral: Moist Mucosa Neck: Supple Lungs: Clear to auscultation, Normal air movement Cardiovascular: Regular rate, Regular Rhythm, Normal S1, Normal S2, No murmurs Abdomen: Bowel Sounds Present, Soft, Non Tender, Non-Distended, No Hepato- splenomegaly Extremities: No edema Skin: No rashes Musculoskeletal: No Tenderness to Palpation of Joints or Extremities Lymphatic: No Cervical, Supraclavicular, or Inguinal Adenopathy Neurological: - - Right sided hemiparesis 1-2/5, increased tone Psych/Mental Status: Normal Affect, Appropriate Vitals/I&O's: Vital Signs Temp Pulse Resp BP Pulse Ox 97.6 F L 70 16 127/86 H 97 06/17/17 08:00 06/17/17 07:33 06/17/17 08:00 06/17/17 08:00 06/17/17 08:00 Oxygen Delivery Method Room Air Weight: 98.5 kg Body Mass Index (BMI) 30.2 Finger Stick Blood Glucose 83 Intake and Output for Last 24 Hours 06/15/17 06/16/17 06/17/17 23:59 23:59 23:59 Intake Total 800 / 800 480 / 480 Balance 800 / 800 480 / 480 Current Medications Acetaminophen (Tylenol) 650 mg PO Q4H PRN PRN PRN Reason: Headache/Temp>99F Last Admin: 06/14/17 09:35 Dose: 650 mg Aspirin (Ecotrin) 81 mg PO DAILY@0800 [facility] Last Admin: 06/17/17 07:33 Dose: 81 mg Atorvastatin Calcium (Lipitor) 80 mg PO QHS [facility] Last Admin: 06/16/17 19:46 Dose: 80 mg Bisacodyl (Dulcolax) 10 mg RECTAL .PRN X 1 PRN PRN Reason: Constipation Clopidogrel Bisulfate (Plavix) 75 mg PO DAILY [facility] Last Admin: 06/17/17 07:33 Dose: 75 mg Emollient Ointment (Eucerin Intensive Repair) 1 applic TOPICAL 0600,2200 [facility] PRN Reason: Protocol Last Admin: 06/17/17 05:59 Dose: 1 applicatio Enoxaparin Sodium (Lovenox) 40 mg SC DAILY@0600 [facility] Last Admin: 06/17/17 05:59 Dose: 40 mg Escitalopram Oxalate (Lexapro) 10 mg PO DAILY [facility] Last Admin: 06/17/17 07:33 Dose: 10 mg Magnesium Hydroxide (Milk Of Magnesia) 30 ml PO .PRN X 1 PRN PRN Reason: Constipation Last Admin: 06/08/17 05:38 Dose: 30 ml Metoprolol Succinate (Toprol Xl (Beta Luis Fernando)) 12.5 mg PO DAILY [facility] Last Admin: 06/17/17 07:33 Dose: 12.5 mg Quetiapine Fumarate (Seroquel) 25 mg PO DAILY@1999 [facility] Last Admin: 06/16/17 19:46 Dose: 25 mg Senna/Docusate Sodium (Senokot-S, Tammy-Colace) 2 tablet PO BID [facility] Last Admin: 06/17/17 07:33 Dose: Not Given Medical Necessity - Tobacco Use Smoking Status: Heavy Smoker (>10/day) Tobacco Use: Cigarettes Assessment/Plan 41-year-old gentleman admitted to the inpatient rehab unit following an 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 Debility secondary to Acute left MCA distribution infarct secondary to left carotid artery occlusion, in acute rehab, on aspirin, statin, beta-luis fernando, Plavix 2. Hypertension, controlled, continue on metoprolol 3. Dyslipidemia, on statin. 4. Tobacco dependence, on nicotine replacement. 5. CAD s/p stent, on aspirin, plavix, statin, beta-luis fernando 6. Obesity with BMI 30.5, weight loss advised 7. DVT prophylaxis SC Lovenox Code Visit Inpatient E&M: 68047 [facility] Hosp L2
[2017-06-17 19:19] VITALS: BP 108/79; PULSE 75; RESP 17; TEMP 36.8; O2SAT 95
[2017-06-17] MEDS: QUEtiapine 25 MG Tablet PO (19:56)
[2017-06-17] MEDS: Atorvastatin Calcium 80 MG Tablet PO (19:56)
[2017-06-17 23:50] VITALS: BMI 30.2
--- NOTE | 2017-06-18 01:52 | NURSING ---
Reviewed and agree with LPNs fims and handoff
[2017-06-18] MEDS: Enoxaparin 40 MG/0.4 ML Syringe SC (06:20)
[2017-06-18 07:58] VITALS: BP 116/76; PULSE 75; RESP 16; TEMP 36.6; O2SAT 95
[2017-06-18 08:02] VITALS: BP 116/76; PULSE 75
[2017-06-18] MEDS: Metoprolol(XL)Succ 25 MG Tablet 12.5 MG PO (08:02)
[2017-06-18] MEDS: Aspirin E.C. 81 MG Tablet PO (08:03)
[2017-06-18] MEDS: Escitalopram Oxalate 10 MG Tablet PO (08:03)
[2017-06-18] MEDS: Clopidogrel Bisulfate 75 MG Tablet PO (08:03)
[2017-06-18 08:09] VITALS: BMI 30.2
[2017-06-18] MEDS: Atorvastatin Calcium 80 MG Tablet PO (19:50)
[2017-06-18] MEDS: QUEtiapine 25 MG Tablet PO (19:50)
[2017-06-18 19:58] VITALS: BP 114/74; PULSE 67; RESP 16; TEMP 37.1; O2SAT 95
[2017-06-18 23:03] VITALS: BMI 30.2
--- NOTE | 2017-06-19 01:50 | NURSING ---
Reviewed and agree with LPNs fims and handoff
[2017-06-19] MEDS: Enoxaparin 40 MG/0.4 ML Syringe SC (06:20)
[2017-06-19 08:00] VITALS: BP 120/88; PULSE 88; RESP 18; TEMP 37.1; O2SAT 95
[2017-06-19 08:01] VITALS: BP 120/88; PULSE 88
[2017-06-19] MEDS: Metoprolol(XL)Succ 25 MG Tablet 12.5 MG PO (08:01)
[2017-06-19] MEDS: Clopidogrel Bisulfate 75 MG Tablet PO (08:02)
[2017-06-19] MEDS: Escitalopram Oxalate 10 MG Tablet PO (08:02)
[2017-06-19] MEDS: Aspirin E.C. 81 MG Tablet PO (08:02)
--- NOTE | 2017-06-19 09:09 | PCM.PN.HOSP ---
Objective: Physical exam: General: Alert, Oriented x3, Cooperative, No apparent distress, HEENT: Atraumatic, PERRLA, EOMI, Normocephalic Oral: Moist Mucosa Neck: Supple Lungs: Clear to auscultation, Normal air movement Cardiovascular: Regular rate, Regular Rhythm, Normal S1, Normal S2, No murmurs Abdomen: Bowel Sounds Present, Soft, Non Tender, Non-Distended, No Hepato-splenomegaly Extremities: No edema Skin: No rashes Musculoskeletal: No Tenderness to Palpation of Joints or Extremities Lymphatic: No Cervical, Supraclavicular, or Inguinal Adenopathy Neurological: - - Right sided hemiparesis 1-2/5, increased tone Psych/Mental Status: Normal Affect, Appropriate Vitals/I&O's: Vital Signs Temp Pulse Resp BP Pulse Ox 98.8 F 88 18 120/88 H 95 06/19/17 08:00 06/19/17 08:01 06/19/17 08:00 06/19/17 08:01 06/19/17 08:00 Oxygen Delivery Method Room Air Weight: 98.5 kg Body Mass Index (BMI) 30.2 Finger Stick Blood Glucose 83 Intake and Output for Last 24 Hours 06/17/17 06/18/17 06/19/17 23:59 23:59 23:59 Intake Total 720 / 720 Balance 720 / 720 Current Medications Acetaminophen (Tylenol) 650 mg PO Q4H PRN PRN PRN Reason: Headache/Temp>99F Last Admin: 06/14/17 09:35 Dose: 650 mg Aspirin (Ecotrin) 81 mg PO DAILY@0800 [facility] Last Admin: 06/19/17 08:02 Dose: 81 mg Atorvastatin Calcium (Lipitor) 80 mg PO QHS [facility] Last Admin: 06/18/17 19:50 Dose: 80 mg Bisacodyl (Dulcolax) 10 mg RECTAL .PRN X 1 PRN PRN Reason: Constipation Clopidogrel Bisulfate (Plavix) 75 mg PO DAILY [facility] Last Admin: 06/19/17 08:02 Dose: 75 mg Emollient Ointment (Eucerin Intensive Repair) 1 applic TOPICAL 0600,2200 [facility] PRN Reason: Protocol Last Admin: 06/19/17 06:21 Dose: 1 applicatio Enoxaparin Sodium (Lovenox) 40 mg SC DAILY@0600 [facility] Last Admin: 06/19/17 06:20 Dose: 40 mg Escitalopram Oxalate (Lexapro) 10 mg PO DAILY [facility] Last Admin: 06/19/17 08:02 Dose: 10 mg Magnesium Hydroxide (Milk Of Magnesia) 30 ml PO .PRN X 1 PRN PRN Reason: Constipation Last Admin: 06/08/17 05:38 Dose: 30 ml Metoprolol Succinate (Toprol Xl (Beta Luis Fernando)) 12.5 mg PO DAILY [facility] Last Admin: 06/19/17 08:01 Dose: 12.5 mg Quetiapine Fumarate (Seroquel) 25 mg PO DAILY@1999 [facility] Last Admin: 06/18/17 19:50 Dose: 25 mg Senna/Docusate Sodium (Senokot-S, Tammy-Colace) 2 tablet PO BID [facility] Last Admin: 06/19/17 08:08 Dose: Not Given Medical Necessity - Tobacco Use Smoking Status: Heavy Smoker (>10/day) Tobacco Use: Cigarettes Assessment/Plan 41-year-old gentleman admitted to the inpatient rehab unit following an 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 Debility secondary to Acute left MCA distribution infarct secondary to left carotid artery occlusion, in acute rehab, on aspirin, statin, beta-luis fernando, Plavix 2. Hypertension, controlled, continue on metoprolol 3. Dyslipidemia, on statin. 4. Tobacco dependence, on nicotine replacement. 5. CAD s/p stent, on aspirin, plavix, statin, beta-luis fernando 6. Obesity with BMI 30.5, weight loss advised 7. DVT prophylaxis SC Lovenox Code Visit Inpatient E&M: 89199 [facility] Hosp L2
[2017-06-19 11:35] VITALS: BMI 30.2
[2017-06-19 20:05] VITALS: BP 120/79; PULSE 94; RESP 18; TEMP 36.8; O2SAT 96; BMI 30.2
[2017-06-19] MEDS: Atorvastatin Calcium 80 MG Tablet PO (20:05)
[2017-06-19] MEDS: QUEtiapine 25 MG Tablet PO (20:05)
--- NOTE | 2017-06-20 03:32 | NURSING ---
Reviewed and agree with LPNs fims and handoff
[2017-06-20] MEDS: Enoxaparin 40 MG/0.4 ML Syringe SC (06:02)
[2017-06-20 07:39] VITALS: BP 132/86; PULSE 98; RESP 18; TEMP 36.6; O2SAT 100
[2017-06-20 08:07] VITALS: BP 132/86; PULSE 98
[2017-06-20] MEDS: Escitalopram Oxalate 10 MG Tablet PO (08:07)
[2017-06-20] MEDS: Clopidogrel Bisulfate 75 MG Tablet PO (08:07)
[2017-06-20] MEDS: Metoprolol(XL)Succ 25 MG Tablet 12.5 MG PO (08:07)
[2017-06-20] MEDS: Aspirin E.C. 81 MG Tablet PO (08:07)
--- NOTE | 2017-06-20 10:41 | PN.NEURO_ITS ---
Subjective: Staffed in team meeting. at bedside. Questions addressed and answered. With Physical therapy, he is standby assist for bed mobility, he occasionally needs assistance to get his leg into the bed. He is contact guard for transfers , going from a sitting to a standing position. He needs more assistance when he is tired, or fatigued. He is able to walk about 170 feet using the quad cane, at contact guard. The further he goes the more help he needs, his customer AFO will be fitted today. He is able to go up and down 7 steps using one hand rail at contact guard. With Occupational therapy he is minimal assist for upper body dressing and grooming and max assist for his lower body. They are noting some biceps and triceps movement on the right side. With Speech therapy he still has some inattention and impulsiveness, he is better able to control it now verse when he first arrived. He continues to have some mild Dysarthria. They will repeat his cogitative assessment evaluation today. With Nursing his pain is well controlled, will consult Hematology for elevated Factor VIII, and will call his PCP in [place] on setting up appointments for them as well as recommendations for a Neurologist, in their area. The patient will be returning home to [place] later this week, recommended to the that she should obtain a wheelchair to help with transfers, and mobility in general since the patient is unable to walk for any long distance per Physical therapy without becoming very fatigue and stumbling when walking. He will also need Outpatient Physical therapy, Occupational therapy, and Speech therapy, once he returns home. - Physical Exam General: Alert, Oriented x3, Cooperative HEENT: Atraumatic, PERRLA, EOMI, Normocephalic Neck: Supple, No JVD, Negative Carotid Bruits Lungs: Clear to auscultation, Normal air movement Cardiovascular: Regular rate, No murmurs Abdomen: Bowel Sounds Present, Soft, Non Tender Extremities: No edema, Capillary Refill Less than 3 Seconds Skin: No rashes, No breakdown Musculoskeletal: No Tenderness to Palpation of Joints or Extremities Neurological: Cranial nerves II-XII grossly intact, - - Right sided hemiparesis 1-2/5, increased tone Psych/Mental Status: Normal Affect, Appropriate, Alert and oriented to time, place, person, mood and affect Vital Signs Temp Pulse Resp BP Pulse Ox 97.9 F 98 18 132/86 H 100 06/20/17 07:39 06/20/17 08:07 06/20/17 07:39 06/20/17 08:07 06/20/17 07:39 Oxygen Delivery Method Room Air Weight: 98.5 kg Body Mass Index (BMI) 30.2 Finger Stick Blood Glucose 83 Intake and Output for Last 24 Hours 06/18/17 06/19/17 06/20/17 23:59 23:59 23:59 Intake Total 220 / 220 260 / 260 Balance 220 / 220 260 / 260 Active Medications Acetaminophen (Tylenol) 650 mg PO Q4H PRN PRN PRN Reason: Headache/Temp>99F Last Admin: 06/14/17 09:35 Dose: 650 mg Aspirin (Ecotrin) 81 mg PO DAILY@0800 [facility] Last Admin: 06/20/17 08:07 Dose: 81 mg Atorvastatin Calcium (Lipitor) 80 mg PO QHS [facility] Last Admin: 06/19/17 20:05 Dose: 80 mg Bisacodyl (Dulcolax) 10 mg RECTAL .PRN X 1 PRN PRN Reason: Constipation Clopidogrel Bisulfate (Plavix) 75 mg PO DAILY [facility] Last Admin: 06/20/17 08:07 Dose: 75 mg Emollient Ointment (Eucerin Intensive Repair) 1 applic TOPICAL 0600,2200 [facility] PRN Reason: Protocol Last Admin: 06/20/17 06:03 Dose: 1 applicatio Enoxaparin Sodium (Lovenox) 40 mg SC DAILY@0600 [facility] Last Admin: 06/20/17 06:02 Dose: 40 mg Escitalopram Oxalate (Lexapro) 10 mg PO DAILY [facility] Last Admin: 06/20/17 08:07 Dose: 10 mg Magnesium Hydroxide (Milk Of Magnesia) 30 ml PO .PRN X 1 PRN PRN Reason: Constipation Last Admin: 06/08/17 05:38 Dose: 30 ml Metoprolol Succinate (Toprol Xl (Beta Luis Fernando)) 12.5 mg PO DAILY [facility] Last Admin: 06/20/17 08:07 Dose: 12.5 mg Quetiapine Fumarate (Seroquel) 25 mg PO DAILY@2000 [facility] Last Admin: 06/19/17 20:05 Dose: 25 mg Senna/Docusate Sodium (Senokot-S, Tammy-Colace) 2 tablet PO BID [facility] Last Admin: 06/20/17 08:05 Dose: Not Given Medical Necessity - Tobacco Use Smoking Status: Heavy Smoker (>10/day) Tobacco Use: Cigarettes Assessment/Plan Debility due to 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 Debility includes right hemiparesis and neglect as well as hemianopsia and receptive aphasia. Of rehab is rastafarian of prior level of functional independence Plan: - Therapy for gait and balance - Occupational Therapy for ADLs - Speech therapy - Pressure is currently controlled, continue to monitor - Aspirin and Plavix for now - Statin therapy - Bowel protocol - DVT prophylaxis: Lovenox - continue smoking cessation - Seroquel at HS - Hypercoagulation panel => pending results - Weight has remained stable with no additional weight loss noted. - Bradycardia -> decreased Metoprolol to 12.5mg from 25mg and hold for heart rate less than 60 - Share care -> Family training in anticipation of discharge home this week. - Consult Hematology for elevated Factor VIII - Plan is discharge on Tuesday this week once all the details have been worked out, and necessary equipment has been obtained - Will make appointments with his PCP, a Neurologist, and Chief Order Dispatcher in [place]
[2017-06-20 11:21] VITALS: BMI 30.2
--- NOTE | 2017-06-20 13:30 | CASEMGMT ---
Team meeting held. Patient present as well as patient spouse, discharge date now set for 06/24/17 as patient spouse reporting to not be able to get transportation for 06/22/17. Patient plans to discharge home with spouse on 06/24/17 and to have continued therapy through outpatient services for PT/OT/CADDY/CADDIE SUPERVISOR. Patient to continue with further care and treatment on the Inpatient Rehab Unit until time of discharge. Support given. Proposed discharge date: 06/24/17 PLAN: Discharge home with spouse. Micki DEVINE, SALVAGE DIVER
--- NOTE | 2017-06-20 13:34 | CASEMGMT ---
Insurance Clinical information sent. Pending continued stay approval at this time. Auth#[id number] Micki DEVINE, INSURANCE CHECKER
--- NOTE | 2017-06-20 15:09 | CASEMGMT ---
Insurance Continued stay approved with next update due on 06/24/17. Auth#[id number] Micki DEVINE, GYM ATTENDANT
[2017-06-20] MEDS: Atorvastatin Calcium 80 MG Tablet PO (20:26)
[2017-06-20] MEDS: QUEtiapine 25 MG Tablet PO (20:26)
[2017-06-20 20:31] VITALS: BP 108/70; PULSE 92; RESP 20; TEMP 36.4; O2SAT 96
[2017-06-20 20:34] VITALS: O2SAT 96
[2017-06-20 20:40] VITALS: BMI 30.2
--- NOTE | 2017-06-21 00:18 | NURSING ---
REVIEWED AND AGREE WITH DATA PROCESSING SPECIALIST'S FIM AND HANDOFF CHARTING.
[2017-06-21] MEDS: Enoxaparin 40 MG/0.4 ML Syringe SC (06:02)
[2017-06-21 07:20] VITALS: BP 107/68; PULSE 61; RESP 17; TEMP 37; O2SAT 95
[2017-06-21] MEDS: Aspirin E.C. 81 MG Tablet PO (07:32)
[2017-06-21] MEDS: Clopidogrel Bisulfate 75 MG Tablet PO (07:32)
[2017-06-21] MEDS: Escitalopram Oxalate 10 MG Tablet PO (07:32)
[2017-06-21 07:33] VITALS: BP 107/68; PULSE 61
[2017-06-21] MEDS: Metoprolol(XL)Succ 25 MG Tablet 12.5 MG PO (07:33)
--- NOTE | 2017-06-21 10:07 | CON.PCM_ITS ---
Consult Referring Physician: Dr. Chao. Consult Results: Increase Factor VIII activity. Subjective Date of Service:: 06/21/17 Chief Complaint: CVA History of Present Illness: 41-year-old man was diagnosed with CVA-left MCA distribution infarct and right- sided weakness and neglect on 05/25/2017. He is now in rehab. He was found to have increase factor VIII activity on June 07, 2013 and a Hematology consult was requested. Prothrombin gene mutation is negative, factor V Leiden is negative. He also has CAD with stents. Past Medical History: Chronic Problems CVA (cerebral vascular accident) (Chronic) CAD (coronary artery disease) (Chronic) Past Medical/Surgical History: Past Medical History - Most Recent Inpatient Visit Past Medical History Start: 05/31/17 15: 26 Text: Status: Complete Freq: ONCE Protocol: Document 05/31/17 15:26 BILLET GRINDER (Rec: 05/31/17 16:11 BILLET GRINDER [id number]) BMI Required to complete PMH What is Patient's BMI 30.2 Past Medical History Unable History Recalled No Query Text:Pt Unable/Family Not Present Neurologic Medical History Hx Stroke/TIA Yes: minor stroke age 28 Hx Dementia/Alzheimer's No Hx Parkinson's Disease No Hx Seizures No Hx Multiple Sclerosis No Hx Migraines No Cardiac Medical History VTE Present on Admission No Hx of Deep Vein Thrombosis/VTE/PE No Hx Hypertension Yes: On BP medications/hx CAD Hx Chest Pain/Angina No Hx Heart Attack Yes: age 38 Hx Cardiac Surgery/Stents/Etc. Yes: 1 stent in heart Hx Heart Failure No Hx Pacemaker/AICD No Hx Irregular Heartbeat and/or Afib No Hx Anticoagulant Therapy Yes: plavix lovenox Query Text:(Coumadin, Aspirin, Plavix, Xarelto, etc.) Hx Pain in Legs when Walking/Leg Cramps No Respiratory Medical History Hx COPD No Hx Emphysema No Hx Smoking Yes Smoking Status Heavy Smoker (>10/day) Tobacco Use Cigarettes Hx Smoking Cessation Counseling Yes Hx Smoking Exposure Yes Hx Tobacco Use in last 12 months No Hx of Pipe Smoking No Hx of Cigar Smoking No Hx Sleep Apnea No Do you snore loudly (louder than talking Yes or can be heard through closed doors)? Do you often feel tired/ fatigued/ Yes sleepy during daytime? Has anyone observed you stop breathing Yes during sleep? STOP Results Positive GI Medical History Hx Ulcer No Hx Hepatitis No Hx Cirrhosis No Hx GI Bleed No Hx Unplanned Weight Loss No Genitourinary Medical History Indwelling Catheter in Place on Arrival/ No Admission Hx Renal Disease No Hx Dialysis No Musculoskeletal History Hx Arthritis No Hx Rheumatoid Arthritis No Endocrine Medical History Hx Diabetes No Hx Thyroid Disease No Hematologic Medical History Hx of Blood Transfusion No Hx of Transfusion in last 3 Months No Ever experience any problems with No transfusion(s)? Hx of Preganancy in last 3 Months N/A Nurse Filling Out Transfusion & MWEYGANDT Questions: Date: 05/31/17 Time: 16:07 Psycho/Social Medical History Hx Depression No Hx Anxiety No Hx Behavior Disorder No Hx Alcohol Use Yes: per couple of cans of beer per day Hx Substance Use Yes Comments occassional use marijuanna Other Medical History Hx Blood Disorders No Hx Anemia No Hx Cancer No Hx Drug Resistant Organism Yes: mrsa in the past Wound/Pressure Injury Present on Arrival No /Admission Query Text:If yes, chart assessment in Shift/Clinical Findings Central Line/PICC/VAD Present on Arrival No /Admission Antibiotics within last 7 days? Yes Comments anitbiotics for lower respiratory infection last tuesday Methicillin Resistant Staphylococcus aureus Screening Active MRSA No Risk for Readmission Number of Risk Factors 2 At Risk for Readmission Patient is At Risk For Readmission Patient is eligible for Call Back Y Maternal Family History: - - unable to obtain as patient is confused - Social History Smoking Status: Heavy Smoker (>10/day) Tobacco Use: Cigarettes Allergies/Adverse Reactions: Allergy/AdvReac Type Severity Reaction Status Date / Time No Known Allergies Allergy Verified 05/25/17 15:07 Home Medications Medication Instructions Recorded Clopidogrel Bisulfate [Plavix] 75 mg PO DAILY 05/25/17 Metoprolol(XL)Succ [Toprol Xl 25 mg PO DAILY 05/25/17 (Beta Luis Fernando)] Acetaminophen [Tylenol Tablet] 650 mg PO Q4H PRN PRN #0 tablet 05/31/17 Aspirin E.C. [Ecotrin] 81 mg PO DAILY@0800 05/31/17 Atorvastatin Calcium [Lipitor] 80 mg PO QHS 05/31/17 Enoxaparin [Lovenox] 40 mg SC DAILY@0600 05/31/17 Review of Systems Constitutional:: Reports: Weakness - R sided upper and lower extremities. Cardiovascular:: Denies: Chest pain, Palpitations, Dyspnea on exertion, Orthopnea, PND, Shortness of breath Respiratory: Denies: Cough, Hemoptysis, Shortness of Breath, Wheezing Gastrointestinal:: Denies: Abdominal pain, Nausea, Vomiting, Diarrhea, Constipation, Hematochezia Genitourinary: Denies: Dysuria, Hematuria, 15, Flank pain Musculoskeletal:: Denies: Back pain, Myalgia, Arthralgia Skin: Denies: Rash, Skin Changes, Wounds Neurological:: Reports: - - R sided weakness. Psychiatric: Denies: Anxiety, Depression, Homicidal Ideations, Suicidal Ideations Vital Signs Height 6 ft Weight: 98.5 kg Weight in Pounds 217.2 lbs Pulse Ox 95 Temperature 98.6 F Pulse Rate 61 Respiratory Rate 17 Blood Pressure 107/68 Blood Pressure Position Sitting - Physical Exam General: Alert, Oriented x3, No apparent distress HEENT: Atraumatic, PERRLA, EOMI, Normocephalic Oropharynx:: Dry mucosa Neck:: Supple, Trachea midline. Negative for: JVD, bilateral Cardiac:: Regular rate, Regular rhythm, Normal S1, Normal S2. Negative for: Murmur Lungs: Clear to auscultation, Excusion symmetrical. Negative for: Rhonchi, Wheezes Abdomen:: Bowel sounds x 4, Soft, Non-tender, Non-distended. Negative for: Hepatosplenomegaly Neurological: - - Right Hemiplegia. Assessment and Plan Laboratory Tests 05/25/17 06/07/17 16:14 12:57 PT 12.9 Factor VIII Activity 184 H von Willebrand Comment 137 Assessment: Increased Factor VIII activity in the setting of a stroke. H/O CAD. Increased factor VIII level has been associated with increase risk of both venous and arterial thrombosis. Management with chronic anticoagulation is not clear at this time. Suggestion is to do Factor VIII level which is what has been discussed in the Medical literature. Obtain PTT/PT. Since Pt is moving to [place], he can get a Hematology Consult over there to decide if he wants to be on chronic anticoagulation therapy. Thanks. Medications: Prescriptions This Visit Medication Instructions Recorded Aspirin E.C. [Ecotrin] 81 mg PO DAILY@0800 05/31/17 Atorvastatin Calcium [Lipitor] 80 mg PO QHS 05/31/17 Enoxaparin [Lovenox] 40 mg SC DAILY@0600 05/31/17 Primary Care Provider: No Primary Care Phys Referring Provider: Desean Milian MD - Problem List (1) CVA (cerebral vascular accident) Status: Chronic Qualifiers: Precerebral and cerebral artery: middle cerebral artery Laterality of affected vessel: left (2) Abnormal laboratory test result Status: Acute Code Visit Office Visits / Consults: [id number] IP Consult L4
--- NOTE | 2017-06-21 11:06 | NURSING ---
Dr. Swanson here to see pt.
[2017-06-21 15:52] VITALS: BMI 30.2
[2017-06-21] MEDS: QUEtiapine 25 MG Tablet PO (19:48)
[2017-06-21] MEDS: Atorvastatin Calcium 80 MG Tablet PO (19:49)
[2017-06-21 19:50] VITALS: BP 115/68; PULSE 84; RESP 16; TEMP 36.7; O2SAT 98; BMI 30.2
--- NOTE | 2017-06-22 00:39 | NURSING ---
Reviewed and agree with HOURLY SHIFT MANAGER documentation.
[2017-06-22] MEDS: Enoxaparin 40 MG/0.4 ML Syringe SC (05:01)
[2017-06-22 07:22] VITALS: PULSE 76
[2017-06-22] MEDS: Clopidogrel Bisulfate 75 MG Tablet PO (07:22)
[2017-06-22] MEDS: Aspirin E.C. 81 MG Tablet PO (07:22)
[2017-06-22] MEDS: Metoprolol(XL)Succ 25 MG Tablet 12.5 MG PO (07:22)
[2017-06-22] MEDS: Escitalopram Oxalate 10 MG Tablet PO (07:23)
[2017-06-22 08:03] VITALS: BP 108/84; PULSE 76; RESP 17; TEMP 37; O2SAT 99
--- NOTE | 2017-06-22 09:15 | PCM.PN.NEU ---
Patient Problems: Active and Suspected Problems Elevated factor VIII level (Acute) Abnormal laboratory test result (Acute) Subjective: Patient seen and examined. No acute events over night. Tolerating therapy. Was seen by Hematology yesterday who recommends since the patient is returning to [place], that he consults a Airline Lounge Receptionist there to decide if he would like to go on Chronic anticoagulation therapy, obtain a PTT/PT which we have ordered in addition to the Factor VIII level already done. We have already contacted his PCP and made an appointment, and also made appointments for both a Neurologist and a Airline Lounge Receptionist. - Physical Exam General: Alert, Oriented x3, Cooperative HEENT: Atraumatic, PERRLA, EOMI, Normocephalic Neck: Supple, No JVD, Negative Carotid Bruits Lungs: Clear to auscultation, Normal air movement Cardiovascular: Regular rate, No murmurs Abdomen: Bowel Sounds Present, Soft, Non Tender Extremities: No edema, Capillary Refill Less than 3 Seconds Skin: No rashes, No breakdown Musculoskeletal: No Tenderness to Palpation of Joints or Extremities Neurological: Cranial nerves II-XII grossly intact Psych/Mental Status: Normal Affect, Appropriate, Alert and oriented to time, place, person, mood and affect Vital Signs Temp Pulse Resp BP Pulse Ox 98.6 F 76 17 108/84 H 99 06/22/17 08:03 06/22/17 08:03 06/22/17 08:03 06/22/17 08:03 06/22/17 08:03 Oxygen Delivery Method Room Air Weight: 97 kg Body Mass Index (BMI) 30.2 Finger Stick Blood Glucose 83 Intake and Output for Last 24 Hours 06/20/17 06/21/17 06/22/17 23:59 23:59 23:59 Intake Total 500 / 500 640 / 640 240 / 240 Balance 500 / 500 640 / 640 240 / 240 Active Medications Acetaminophen (Tylenol) 650 mg PO Q4H PRN PRN PRN Reason: Headache/Temp>99F Last Admin: 06/14/17 09:35 Dose: 650 mg Aspirin (Ecotrin) 81 mg PO DAILY@0800 [facility] Last Admin: 06/22/17 07:22 Dose: 81 mg Atorvastatin Calcium (Lipitor) 80 mg PO QHS [facility] Last Admin: 06/21/17 19:49 Dose: 80 mg Bisacodyl (Dulcolax) 10 mg RECTAL .PRN X 1 PRN PRN Reason: Constipation Clopidogrel Bisulfate (Plavix) 75 mg PO DAILY [facility] Last Admin: 06/22/17 07:22 Dose: 75 mg Emollient Ointment (Eucerin Intensive Repair) 1 applic TOPICAL 0600,220 [facility] PRN Reason: Protocol Last Admin: 06/22/17 05:01 Dose: 1 applicatio Enoxaparin Sodium (Lovenox) 40 mg SC DAILY@0600 [facility] Last Admin: 06/22/17 05:01 Dose: 40 mg Escitalopram Oxalate (Lexapro) 10 mg PO DAILY [facility] Last Admin: 06/22/17 07:23 Dose: 10 mg Magnesium Hydroxide (Milk Of Magnesia) 30 ml PO .PRN X 1 PRN PRN Reason: Constipation Last Admin: 06/08/17 05:38 Dose: 30 ml Metoprolol Succinate (Toprol Xl (Beta Luis Fernando)) 12.5 mg PO DAILY [facility] Last Admin: 06/22/17 07:22 Dose: 12.5 mg Quetiapine Fumarate (Seroquel) 25 mg PO DAILY@1999 [facility] Last Admin: 06/21/17 19:48 Dose: 25 mg Senna/Docusate Sodium (Senokot-S, Tammy-Colace) 2 tablet PO BID [facility] Last Admin: 06/22/17 07:22 Dose: Not Given Medical Necessity - Tobacco Use Smoking Status: Heavy Smoker (>10/day) Tobacco Use: Cigarettes Assessment/Plan Active and Suspected Problems Elevated factor VIII level (Acute) Abnormal laboratory test result (Acute) Debility due to 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 Debility includes right hemiparesis and neglect as well as hemianopsia and receptive aphasia. Of rehab is faith of prior level of functional independence Plan: - Therapy for gait and balance - Occupational Therapy for ADLs - Speech therapy - Pressure is currently controlled, continue to monitor - Aspirin and Plavix for now - Statin therapy - Bowel protocol - DVT prophylaxis: Lovenox - continue smoking cessation - Seroquel at - Hypercoagulation panel => pending results - Weight has remained stable with no additional weight loss noted. - Bradycardia -> decreased Metoprolol to 12.5mg from 25mg and hold for heart rate less than 60 - Share care -> Family training in anticipation of discharge home this week. - Consult Hematology for elevated Factor VIII => was seen by Dr. Patrick since the patient is returning to [place] he recommends consulting a Airline Lounge Receptionist there and see if they would like for him to start chronic anticoagulation therapy. An obtaining a PTT/PT in addition to the Factor VIII level, will order one for the AM labs. - Plan is discharge on Tuesday this week once all the details have been worked out, and necessary equipment has been obtained - Will make appointments with his PCP, a Neurologist, and Airline Lounge Receptionist in [place]
[2017-06-22 10:27] VITALS: BMI 30.2
--- NOTE | 2017-06-22 12:53 | NURSING ---
izabela tristans here and adjusted afo.
--- NOTE | 2017-06-22 16:38 | CASEMGMT ---
Addendum entered by Micki Soto 06/22/17 16:44: Patient spouse reporting to have order blood pressure cuff and shower chair on-line as these were not covered by insurance. Original Note: Social Work Met with patient and patient spouse. Patient spouse reporting to have picked up Wheelchair and Can from [facility]. Patient and patient spouse requesting for outpatient therapy services to be set up through [facility] in [place], [place] [[phone]]. Patient spouse to provide transportation home for patient at time of discharge back to [place]. Patient spouse has someone to assist with transportation as well. Support given. Telephone call to Stella Yao. Outpatient Speech, Physical, and Occupational therapy set up for July 05 starting at 9 and continuing to 11. With O.T at 9am, P.T. at 10am, ant S.L.P. at 11am. Orders faxed along with supportive documentation. Stella reporting to also need an order from Dr. Ohara (PCP) as Dr. Ohara is patients local doctor. Telephone call to Dr. Ohara [[phone]], voicemail left with nursing. Proposed discharge date: 06/23/17 PLAN: Discharge home with spouse and outpatient therapy services. Micki DEVINE, ATTIC BLOWER
[2017-06-22] MEDS: Atorvastatin Calcium 80 MG Tablet PO (19:25)
[2017-06-22] MEDS: QUEtiapine 25 MG Tablet PO (19:25)
[2017-06-22 19:34] VITALS: BP 99/64; PULSE 70; RESP 17; TEMP 37.1; O2SAT 97
[2017-06-22 23:03] VITALS: BMI 30.2
--- NOTE | 2017-06-23 03:07 | NURSING ---
Reviewed and agree with BANDOLEER PACKER documentation and FIMS charting
[2017-06-23 06:10] LABS: Prothrombin Time (Protime)PT. 12.9 SECONDS (11.7-14.9)
[2017-06-23 06:11] LABS: Partial Thromboplast Time 28.4 Seconds (24.1-36.2)
[2017-06-23] MEDS: Enoxaparin 40 MG/0.4 ML Syringe SC (06:17)
[2017-06-23 07:46] VITALS: BP 118/89; PULSE 95; RESP 18; TEMP 37.1; O2SAT 98
[2017-06-23] MEDS: Aspirin E.C. 81 MG Tablet PO (08:38)
[2017-06-23] MEDS: Clopidogrel Bisulfate 75 MG Tablet PO (08:38)
[2017-06-23] MEDS: Escitalopram Oxalate 10 MG Tablet PO (08:38)
[2017-06-23 08:41] VITALS: PULSE 95
[2017-06-23] MEDS: Metoprolol(XL)Succ 25 MG Tablet 12.5 MG PO (08:41)
[2017-06-23 08:43] VITALS: BMI 30.2
--- NOTE | 2017-06-23 10:56 | PN.NEURO_ITS ---
Patient Problems: Active and Suspected Problems Elevated factor VIII level (Acute) Abnormal laboratory test result (Acute) Subjective: Patient seen, at bedside. No issues over night per nursing staff. He is scheduled for discharge on Tuesday, he will be leaving for his home in [place] on Tuesday. His appointments have been made with Providers in [place] and the is aware. He has been tolerating therapy, and doing very well. No issues with GI/. - Physical Exam General: Alert, Oriented x3, Cooperative HEENT: Atraumatic, PERRLA, EOMI, Normocephalic Neck: Supple, No JVD, Negative Carotid Bruits Lungs: Clear to auscultation, Normal air movement Cardiovascular: Regular rate, No murmurs Abdomen: Bowel Sounds Present, Soft, Non Tender Extremities: No edema, Capillary Refill Less than 3 Seconds Skin: No rashes, No breakdown Musculoskeletal: No Tenderness to Palpation of Joints or Extremities Neurological: Cranial nerves II-XII grossly intact Psych/Mental Status: Normal Affect, Appropriate, Alert and oriented to time, place, person, mood and affect Vital Signs Temp Pulse Resp BP Pulse Ox 98.7 F 95 18 118/89 H 98 06/23/17 07:46 06/23/17 08:41 06/23/17 07:46 06/23/17 07:46 06/23/17 07:46 Oxygen Delivery Method Room Air Weight: 97 kg Body Mass Index (BMI) 30.2 Finger Stick Blood Glucose 83 Intake and Output for Last 24 Hours 06/21/17 06/22/17 06/23/17 23:59 23:59 23:59 Intake Total 640 / 640 480 / 480 240 / 240 Balance 640 / 640 480 / 480 240 / 240 Laboratory Tests Past 24 Hrs 06/23/17 05:30 PT 12.9 INR 1.0 APTT 28.4 Active Medications Acetaminophen (Tylenol) 650 mg PO Q4H PRN PRN PRN Reason: Headache/Temp>99F Last Admin: 06/14/17 09:35 Dose: 650 mg Aspirin (Ecotrin) 81 mg PO DAILY@0800 [facility] Last Admin: 06/23/17 08:38 Dose: 81 mg Atorvastatin Calcium (Lipitor) 80 mg PO QHS [facility] Last Admin: 06/22/17 19:25 Dose: 80 mg Bisacodyl (Dulcolax) 10 mg RECTAL .PRN X 1 PRN PRN Reason: Constipation Clopidogrel Bisulfate (Plavix) 75 mg PO DAILY [facility] Last Admin: 06/23/17 08:38 Dose: 75 mg Emollient Ointment (Eucerin Intensive Repair) 1 applic TOPICAL 0600,2200 [facility] PRN Reason: Protocol Last Admin: 06/23/17 06:17 Dose: 1 applicatio Enoxaparin Sodium (Lovenox) 40 mg SC DAILY@0600 [facility] Last Admin: 06/23/17 06:17 Dose: 40 mg Escitalopram Oxalate (Lexapro) 10 mg PO DAILY [facility] Last Admin: 06/23/17 08:38 Dose: 10 mg Magnesium Hydroxide (Milk Of Magnesia) 30 ml PO .PRN X 1 PRN PRN Reason: Constipation Last Admin: 06/08/17 05:38 Dose: 30 ml Metoprolol Succinate (Toprol Xl (Beta Luis Fernando)) 12.5 mg PO DAILY [facility] Last Admin: 06/23/17 08:41 Dose: 12.5 mg Quetiapine Fumarate (Seroquel) 25 mg PO DAILY@1999 [facility] Last Admin: 06/22/17 19:25 Dose: 25 mg Senna/Docusate Sodium (Senokot-S, Tammy-Colace) 2 tablet PO BID [facility] Last Admin: 06/23/17 07:53 Dose: Not Given Medical Necessity - Tobacco Use Smoking Status: Heavy Smoker (>10/day) Tobacco Use: Cigarettes Assessment/Plan Active and Suspected Problems Elevated factor VIII level (Acute) Abnormal laboratory test result (Acute) Debility due to 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 Debility includes right hemiparesis and neglect as well as hemianopsia and receptive aphasia. Of rehab is jain of prior level of functional independence Plan: - Therapy for gait and balance - Occupational Therapy for ADLs - Speech therapy - Pressure is currently controlled, continue to monitor - Aspirin and Plavix for now - Statin therapy - Bowel protocol - DVT prophylaxis: Lovenox - continue smoking cessation - Seroquel at - Hypercoagulation panel => pending results - Weight has remained stable with no additional weight loss noted. - Bradycardia -> decreased Metoprolol to 12.5mg from 25mg and hold for heart rate less than 60 - Share care -> Family training in anticipation of discharge home this week. - Consult Hematology for elevated Factor VIII => was seen by Dr. Patrick since the patient is returning to [place] he recommends consulting a Medical And Health Services Manager there and see if they would like for him to start chronic anticoagulation therapy. An obtaining a PTT/PT in addition to the Factor VIII level, will order one for the AM labs. - Plan is discharge on Tuesday this week once all the details have been worked out, and necessary equipment has been obtained - Will make appointments with his PCP, a Neurologist, and Medical And Health Services Manager in [place]
[2017-06-23 19:09] VITALS: BP 126/81; PULSE 79; RESP 15; TEMP 36.6; O2SAT 98
[2017-06-23] MEDS: Atorvastatin Calcium 80 MG Tablet PO (19:52)
[2017-06-23] MEDS: QUEtiapine 25 MG Tablet PO (19:52)
[2017-06-24 00:58] VITALS: BMI 30.2
[2017-06-24] MEDS: Enoxaparin 40 MG/0.4 ML Syringe SC (05:19)
[2017-06-24 07:19] VITALS: BP 120/95; PULSE 53; RESP 16; TEMP 36.9; O2SAT 98
[2017-06-24 07:36] VITALS: PULSE 68
[2017-06-24 07:39] VITALS: PULSE 68
[2017-06-24] MEDS: Clopidogrel Bisulfate 75 MG Tablet PO (07:39)
[2017-06-24] MEDS: Metoprolol(XL)Succ 25 MG Tablet 12.5 MG PO (07:39)
[2017-06-24] MEDS: Escitalopram Oxalate 10 MG Tablet PO (07:39)
[2017-06-24] MEDS: Aspirin E.C. 81 MG Tablet PO (07:39)
[2017-06-24 07:50] VITALS: BMI 30.2
--- NOTE | 2017-06-24 08:36 | PCM.DC ---
- Discharge Diagnoses Current Active Problems: Current Active and Chronic Problems Elevated factor VIII level (Acute) Abnormal laboratory test result (Acute) Reason(s) for Visit for Discharge Instructions: CVA You will use the following diet at home:: Regular Your food should be the consistency of: Regular Your liquids should be the consistency of: Regular/Thin Discharge Activity: May Not Drive - until cleared by your Neurologist, May not drive while taking narcotic pain medications., May Shower, May Take a Tub Bath, Use Walker - Adebayo-walker, - Weight Bearing Status: Weight bearing as tolerated Call your doctor if you observe: Fever of 101 or Higher, Coldness, Increased Pain, Numbness or Tingling, Change in Color, Inability to urinate, Inability to have a bowel movement, Using more than one pad per hour, Shortness of breath, Dizziness, Fainting spells, Swelling in the ankles, Chest pain, Prolonged hiccoughing, Increased palpitations (irregular heartbeat), Calf discomfort, Uncontrolled pain Allergies/Adverse Reactions: Allergies No Known Allergies Allergy (Verified 05/25/17 15:07) Medications to take at Discharge Acetaminophen [Tylenol Tablet] 650 mg PO Q4H PRN PRN #0 tablet 05/31/17 Aspirin E.C. [Ecotrin] 81 mg PO DAILY@0800 05/31/17 Atorvastatin Calcium [Lipitor] 80 mg PO QHS #60 tab 06/23/17 Clopidogrel Bisulfate [Plavix] 75 mg PO DAILY #60 tab 06/23/17 Escitalopram Oxalate [Lexapro] 10 mg PO DAILY #60 tab 06/23/17 Metoprolol(XL)Succ [Toprol Xl (Beta Luis Fernando)] 25 mg PO DAILY #60 tab 06/23/17 Quetiapine Fumarate [Seroquel] 25 mg PO DAILY@1999 #60 tab 06/23/17 The following prescriptions were given: Atorvastatin Calcium [Lipitor] 80 mg PO QHS #60 tab Clopidogrel Bisulfate [Plavix] 75 mg PO DAILY #60 tab Escitalopram Oxalate [Lexapro] 10 mg PO DAILY #60 tab Metoprolol(XL)Succ [Toprol Xl (Beta Luis Fernando)] 25 mg PO DAILY #60 tab Quetiapine Fumarate [Seroquel] 25 mg PO DAILY@1999 #60 tab Primary Care Physician: Care Physician,No Primary [Primary Care Provider] - Please Follow Up With: Dr. Wilbert Ohara PCP When: 07/01/17 Please Follow Up With: Dr. 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 Burrell Neurologist When: 07/08/17 Proposed Discharge Date: 06/24/17
--- NOTE | 2017-06-24 08:40 | PCM.RU.DC ---
Rehab Discharge Summary DATE OF ADMISSION: 05/31/17 DATE OF DISCHARGE: 06/24/17 - Rehab Diagnosis CVA Discharge Diet: No Restrictions Discharge Activity: May Not Drive - until cleared by your Neurologist, May not drive while taking narcotic pain medications., May Shower, May Take a Tub Bath, Use Walker - Adebayo-walker, - Weight Bearing Status: Weight bearing as tolerated Call your doctor if you observe: Fever of 101 or Higher, Coldness, Increased Pain, Numbness or Tingling, Change in Color, Inability to urinate, Inability to have a bowel movement, Using more than one pad per hour, Shortness of breath, Dizziness, Fainting spells, Swelling in the ankles, Chest pain, Prolonged hiccoughing, Increased palpitations (irregular heartbeat), Calf discomfort, Uncontrolled pain Home Medications: Medications to take at Discharge Acetaminophen [Tylenol Tablet] 650 mg PO Q4H PRN PRN #0 tablet 05/31/17 Aspirin E.C. [Ecotrin] 81 mg PO DAILY@0800 05/31/17 Atorvastatin Calcium [Lipitor] 80 mg PO QHS #60 tab 06/23/17 Clopidogrel Bisulfate [Plavix] 75 mg PO DAILY #60 tab 06/23/17 Escitalopram Oxalate [Lexapro] 10 mg PO DAILY #60 tab 06/23/17 Metoprolol(XL)Succ [Toprol Xl (Beta Luis Fernando)] 25 mg PO DAILY #60 tab 06/23/17 Quetiapine Fumarate [Seroquel] 25 mg PO DAILY@2000 #60 tab 06/23/17 Following Prescrptions Were Given to Patient: Atorvastatin Calcium [Lipitor] 80 mg PO QHS #60 tab Clopidogrel Bisulfate [Plavix] 75 mg PO DAILY #60 tab Escitalopram Oxalate [Lexapro] 10 mg PO DAILY #60 tab Metoprolol(XL)Succ [Toprol Xl (Beta Luis Fernando)] 25 mg PO DAILY #60 tab Quetiapine Fumarate [Seroquel] 25 mg PO DAILY@2000 #60 tab Primary Care Physician: Care Physician,No Primary [Primary Care Provider] - Please Follow Up With: Dr. Wilbert Ohara PCP When: 07/01/17 Please Follow Up With: Dr. 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 Burrell Neurologist When: 07/08/17 Disposition: Home - With Outpatient Physical therapy, Occupational therapy, and Speech therapy Minutes spent on discharge:: 40 Patient Condition:: Good Rehab Course The patient is a 41 year old M with a history of stroke in the past. He presented to [facility] with a wake-up stroke, his last known normal was unknown. 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 He presented to the hospital with profound right-sided weakness and neglect, evaluation included workup of CTA and MRI which showed a large left MCA distribution acute infarct as well as an occluded left ICA and MCA. Therapies were initiated. He passed a swallowing evaluation. He improved from a physical therapy and occupational therapy standpoint. He lives in [place] with his family but it was not felt medically appropriate for transfer at this time. His agrees with admission to the rehab unit. He is now admitted to the [facility] acute rehab unit with therapies and a goal of hoahaoism of his prior level of functional independence. With Physical therapy, he is standby assist for bed mobility, he occasionally needs assistance to get his leg into the bed. He is contact guard for transfers, going from a sitting to a standing position. He needs more assistance when he is tired, or fatigued. He is able to walk about 170 feet using the quad cane, at contact guard. The further he goes the more help he needs, his customer AFO will be fitted today. He is able to go up and down 7 steps using one hand rail at contact guard. With Occupational therapy he is minimal assist for upper body dressing and grooming and max assist for his lower body. They are noting some biceps and triceps movement on the right side. With Speech therapy he still has some inattention and impulsiveness, he is better able to control it now verse when he first arrived. He continues to have some mild Dysarthria. They will repeat his cogitative assessment evaluation today. With Nursing his pain is well controlled, will consult Hematology for elevated Factor VIII, and will call his PCP in [place] on setting up appointments for them as well as recommendations for a Neurologist, in their area. The patient will be returning home to [place] later this week, recommended to the that she should obtain a wheelchair to help with transfers, and mobility in general since the patient is unable to walk for any long distance per Physical therapy without becoming very fatigue and stumbling when walking. He will also need Outpatient Physical therapy, Occupational therapy, and Speech therapy, once he returns home. Meaningful Use Info Meaningful Use Diagnoses (Choose all that apply): Ischemic CVA - CVA Therapy Assessed for PT,OT and/or ST?: Yes - Ischemic Stroke Antithrombotic order at d/c?: Yes Dx of Atrial fib/flutter?: No Anticoagulant at discharge?: No Reason anticoagulant not ordered: Treatment not Indicated Statins at discharge?: Yes Primary Dx Acute Ischemic CVA?: Yes IV tPA ordered during stay?: No Reason IV t-PA not ordered: Medical Contraindication
--- NOTE | 2017-06-24 08:45 | DS.PCM_ITS ---
Rehab Discharge Summary DATE OF ADMISSION: 05/31/17 DATE OF DISCHARGE: 06/24/17 - Rehab Diagnosis CVA Discharge Diet: No Restrictions Discharge Activity: May Not Drive - until cleared by your Neurologist, May not drive while taking narcotic pain medications., May Shower, May Take a Tub Bath, Use Walker - Adebayo-walker, - Weight Bearing Status: Weight bearing as tolerated Call your doctor if you observe: Fever of 101 or Higher, Coldness, Increased Pain, Numbness or Tingling, Change in Color, Inability to urinate, Inability to have a bowel movement, Using more than one pad per hour, Shortness of breath, Dizziness, Fainting spells, Swelling in the ankles, Chest pain, Prolonged hiccoughing, Increased palpitations (irregular heartbeat), Calf discomfort, Uncontrolled pain Home Medications: Medications to take at Discharge Acetaminophen [Tylenol Tablet] 650 mg PO Q4H PRN PRN #0 tablet 05/31/17 Aspirin E.C. [Ecotrin] 81 mg PO DAILY@0800 05/31/17 Atorvastatin Calcium [Lipitor] 80 mg PO QHS #60 tab 06/23/17 Clopidogrel Bisulfate [Plavix] 75 mg PO DAILY #60 tab 06/23/17 Escitalopram Oxalate [Lexapro] 10 mg PO DAILY #60 tab 06/23/17 Metoprolol(XL)Succ [Toprol Xl (Beta Luis Fernando)] 25 mg PO DAILY #60 tab 06/23/17 Quetiapine Fumarate [Seroquel] 25 mg PO DAILY@2000 #60 tab 06/23/17 Following Prescrptions Were Given to Patient: Atorvastatin Calcium [Lipitor] 80 mg PO QHS #60 tab Clopidogrel Bisulfate [Plavix] 75 mg PO DAILY #60 tab Escitalopram Oxalate [Lexapro] 10 mg PO DAILY #60 tab Metoprolol(XL)Succ [Toprol Xl (Beta Luis Fernando)] 25 mg PO DAILY #60 tab Quetiapine Fumarate [Seroquel] 25 mg PO DAILY@2000 #60 tab Primary Care Physician: Care Physician,No Primary [Primary Care Provider] - Please Follow Up With: Dr. Wilbert Ohara PCP When: 07/01/17 Please Follow Up With: Dr. 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 Burrell Neurologist When: 07/08/17 Disposition: Home - With Outpatient Physical therapy, Occupational therapy, and Speech therapy Minutes spent on discharge:: 40 Patient Condition:: Good Rehab Course The patient is a 41 year old M with a history of stroke in the past. He presented to [facility] with a wake-up stroke, his last known normal was unknown. 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 He presented to the hospital with profound right-sided weakness and neglect, evaluation included workup of CTA and MRI which showed a large left MCA distribution acute infarct as well as an occluded left ICA and MCA. Therapies were initiated. He passed a swallowing evaluation. He improved from a physical therapy and occupational therapy standpoint. He lives in [place] with his family but it was not felt medically appropriate for transfer at this time. His agrees with admission to the rehab unit. He is now admitted to the [facility] acute rehab unit with therapies and a goal of congregational of his prior level of functional independence. With Physical therapy, he is standby assist for bed mobility, he occasionally needs assistance to get his leg into the bed. He is contact guard for transfers, going from a sitting to a standing position. He needs more assistance when he is tired, or fatigued. He is able to walk about 170 feet using the quad cane, at contact guard. The further he goes the more help he needs, his customer AFO will be fitted today. He is able to go up and down 7 steps using one hand rail at contact guard. With Occupational therapy he is minimal assist for upper body dressing and grooming and max assist for his lower body. They are noting some biceps and triceps movement on the right side. With Speech therapy he still has some inattention and impulsiveness, he is better able to control it now verse when he first arrived. He continues to have some mild Dysarthria. They will repeat his cogitative assessment evaluation today. With Nursing his pain is well controlled, will consult Hematology for elevated Factor VIII, and will call his PCP in [place] on setting up appointments for them as well as recommendations for a Neurologist , in their area. The patient will be returning home to [place] later this week , recommended to the that she should obtain a wheelchair to help with transfers, and mobility in general since the patient is unable to walk for any long distance per Physical therapy without becoming very fatigue and stumbling when walking. He will also need Outpatient Physical therapy, Occupational therapy, and Speech therapy, once he returns home. Meaningful Use Info Meaningful Use Diagnoses (Choose all that apply): Ischemic CVA - CVA Therapy Assessed for PT,OT and/or ST?: Yes - Ischemic Stroke Antithrombotic order at d/c?: Yes Dx of Atrial fib/flutter?: No Anticoagulant at discharge?: No Reason anticoagulant not ordered: Treatment not Indicated Statins at discharge?: Yes Primary Dx Acute Ischemic CVA?: Yes IV tPA ordered during stay?: No Reason IV t-PA not ordered: Medical Contraindication
[2017-06-24 09:45] VITALS: BP 120/95; PULSE 68; RESP 16; TEMP 36.9; O2SAT 98
--- NOTE | 2017-06-24 09:45 | NURSING ---
Patient and aware of discharge instructions. Verbalized understanding.
--- NOTE | 2017-06-24 10:48 | CASEMGMT ---
Social Work Return phone call from Dr. Wilbert Ohara office. Spoke with nursing and they will be able to get orders for outpatient therapies after patient has been Dr. Ohara in the office. Patient scheduled for appointment with Dr. Ohara on 07/01/17 and does not have first therapy appointment until 07/05/17, timing works out well. Dr. Ohara nurse noting on patient chart that patient needs for for outpatient therapies. Proposed discharge date: 06/24/17 PLAN: Discharge home with spouse and outpatient therapies. Micki DEVINE, FULL CHARGE BOOKKEEPER
--- NOTE | 2017-06-24 14:07 | CASEMGMT ---
Insurance Notified insurance of patient discharge on 06/24/17 to home with spouse and outpatient therapies. 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
== END 2017-06-24 09:45 | disposition home or self-care (01) | DRG 57 ==
PROVIDERS: Nurse Practitioner Acute Care; Admitting Provider Psychiatry & Neurology Neurology; Visit Provider Internal Medicine
DX: I69.351 Hemiplegia and hemiparesis following cerebral infarction affecting right dominant side (principal); I69.320 Aphasia following cerebral infarction; I25.10 Atherosclerotic heart disease of native coronary artery without angina pectoris; Z79.899 Other long term (current) drug therapy; Z79.02 Long term (current) use of antithrombotics/antiplatelets; Z79.01 Long term (current) use of anticoagulants; F17.210 Nicotine dependence, cigarettes, uncomplicated; I69.398 Other sequelae of cerebral infarction; H53.47 Heteronymous bilateral field defects; I69.392 Facial weakness following cerebral infarction; E78.5 Hyperlipidemia, unspecified; Z68.30 Body mass index [BMI] 30.0-30.9, adult; E66.9 Obesity, unspecified; Z71.3 Dietary counseling and surveillance; I10 Essential (primary) hypertension; Z95.5 Presence of coronary angioplasty implant and graft; R00.1 Bradycardia, unspecified; I69.322 Dysarthria following cerebral infarction
CPT/HCPCS: 36415; 80048; 81001; 81240; 81241; 83735; 84100; 85027; 85240; 85245; 85610; 85730; 86340; 87086; 92507; 92523; 92526; 97032; 97110; 97112; 97116; 97140; 97162; 97165; 97530; 97535